=== PATIENT | male | born 1970 | race American Indian/Alaskan Native ===

== ENCOUNTER 2016-04-19 05:48 | Inpatient (IN) | payer MEDICARE ==
--- NOTE | 2016-04-16 12:35 | Anesthesia Consultation ---
Anesthesia Consult and Med Hx Date of service: 04/16/16 (Scheduled for left femoral arterectomy on 04/19/16) - Airway Anesthetic Teeth Evaluation: Good ROM Head & Neck: Adequate Mental/Hyoid Distance: Adequate Mallampati Class: Class III Intubation Access Assessment: Possibly Difficult - Pulmonary Exam CTA: Yes - Cardiac Exam Cardiac Exam: RRR - Pre-Operative Health Status ASA Pre-Surgery Classification: ASA3 Proposed Anesthetic Plan: General - Pre-Anesthesia Comment Pre-Anesthesia Comments: No previous anesthesia complications. Cardiac clearance done today at [facility] and pending. - Pulmonary Hx Smoking: Yes (Quit 2 years ago) Hx Asthma: No Hx Sleep Apnea: Yes (2004; + CPAP) - Cardiovascular System Hx Hypertension: Yes (2004) Hx Coronary Artery Disease: Yes Hx Heart Attack/AMI: Yes (02/26/2016- no stents) Hx Percutaneous Transluminal Coronary Angioplasty (PTCA): No Hx Peripheral Vascular Disease: (2004) - Central Nervous System CVA: Yes (2012- no residual defects) Hx Psychiatric Problems: No - Gastrointestinal Hx Gastroesophageal Reflux Disease: No - Endocrine Hx Renal Disease: No Hx Non-Insulin Dependent Diabetes: Yes (Takes Metformin) Hx Thyroid Disease: No - Hematic Hx Anemia: No - Other Systems Hx Cancer: No Hx Obesity: Yes (BMI= 41.6) - Additional Comments Anesthesia Medical History Comments: Patient is s/p RI 02/26/16 at [facility]. States he did not require intervention and was treated with meds. Currently on dual antiplatelet therapy (ASA,Plavix), statin and BB. He is followed by [facility] and went for cardiac clearance today. Will request records. Pt denies SOB, chest pain or anginal equivalent.
[2016-04-16 13:10] LABS: Basophils % (Auto) 0.4 % (0.0-1.8); Eosinophils % (Auto) 1.3 % (0.0-4.3); Hematocrit 48.8 % (35.5-45.6); Hemoglobin 16.5 gm/dl (11.8-15.2); Mean Corpuscular HGB Conc 34 % (32-34); Mean Corpuscular Volume 77 fl (84-94); Platelet Count 242 K/mm3 (140-440); Red Blood Count 6.37 M/mm3 (3.65-5.03); Red Cell Distribution Width 16.9 % (13.2-15.2); White Blood Count 8.5 K/mm3 (4.5-11.0)
[2016-04-16 13:18] LABS: Mean Corpuscular Hemoglobin 26 pg (28-32)
[2016-04-16 13:21] LABS: INR 1.35 (0.87-1.13)
[2016-04-16 13:25] LABS: Anion Gap 22 mmol/L; Blood Urea Nitrogen 15 mg/dL (9-20); Calcium 9.4 mg/dL (8.4-10.2); Carbon Dioxide 22 mmol/L (22-30); Chloride 96.3 mmol/L (98-107); Glucose 285 mg/dL (75-100); Potassium 4.5 mmol/L (3.6-5.0); Sodium 136 mmol/L (137-145)
--- NOTE | 2016-04-18 17:49 | Admit Criteria Form ---
Admission Criteria Documentation: AMBULATORY SURGERY EXCEPTION CRITERIA Ambulatory Surgery Exception Criteria ( Place 'X' for any and all applicable criteria): Surgery or procedure performed on ambulatory basis may require inpatient stay for[A] ANY ONE of the following(1)(2)(3)(4)(5)(6)(7)(8)(9): [X] I. A preoperative situation, condition, or finding that warrants inpatient stay as indicated by ANY ONE of the following: [] a) Inpatient care needed because of severity of a disease or condition rather than the surgery (eg, severe cardiac or respiratory disease, severe infection) (15) (16 ) (17) (18) [] b) Emergent procedure (eg, angioplasty for acute ischemia)(19) [] c) Complex surgical approach or situation as indicated by ANY ONE of the following(3): [] i) Open approach needed instead of usual endoscopic, transcatheter, or other less invasive procedure [] ii) Difficult approach because of previous operation [] iii) Airway monitoring required after open neck procedures(20)(21) [] iv) Large mass requiring unusually extensive dissection [] v) Additional complicating feature requiring inpatient care (eg, drain management)(22(23): [X] d) Major surgery in a pt with high anesthetic risk as indicated by ANY ONE of the following (2)(3)(5)(7)(8): [X] i) ASA risk class III or higher (severe systemic disease impairing function) [D] [] ii) Advanced age (eg, older than 85 years)(14)(24) [] iii) Symptomatic heart failure(25) [] iv) Symptomatic asthma or COPD(8)(21) [] v) Morbid obesity with hemodynamic or respiratory problems(20)( 21)(26)(27) [] vi) Obstructive sleep apnea(20)(21) [] vii) Former premature infants who are younger than 60 weeks [] viii) High risk for severe postoperative abnormalities (eg, severe postoperative hypocalcemia after parathyroidectomy for severe hyperparathyroidism)(27)( 28) [] ix) Unstable angina(25) [] e) Drug-related risk requiring inpatient stay as indicated by ANY ONE of the following(5)(10)(14)(32)(33) [] i) Procedure requires discontinuing drugs or other therapy (eg , antiarrhythmic medication, antiseizure medication), which necessitates inpatient observation or treatment.(18)(31) [] ii) Major surgery and high risk drug use as indicated by ANY ONE of the following: [] 1) Active abuse of cocaine or similar drug [] 2) Monoamine oxidase inhibitor use [] 3) Other drug identified as posing risk [] f) Inadequate outpatient care situation as indicated by ANY ONE of the following(5)(10)(14)(32)(33) [] i) Patient lives remote from medical facility and procedure has urgent complication potential, and temporary nearby residence cannot be arranged [] ii) Patient will have postprocedure incapacitation and inadequate assistance at home, or alternative level of care cannot be arranged. [] iii) Patient will have long general anesthesia or procedure side effect resolution time, and competent person to stay with patient on first postoperative night at home or alternative level of care cannot be arranged. []iv) Other inadequate outpatient situation that cannot be handled by other means [] II. A perioperative event, condition, or finding that warrants inpatient stay as indicated by ANY ONE of the following (1)(2)(3): [] a) Inadequate physiologic recovery: cardiovascular, respiratory, or hemodynamic status not normal or near preoperative baseline(18) [] b) Hemodynamic instability [] c) Patient not alert with near normal or baseline mental status [] d) Temperature not normal or as expected and not appropriate for outpatient treatment of condition [] e) Ambulatory or appropriate activity level status not yet achieved post procedure [E](34)(35)(36) [] f) Operative site not appropriate (eg, unexpected or excessive drainage or bleeding) [] g) Postoperative effects not resolved or adequately managed (eg, significant pain or vomiting not appropriate for outpatient or next level of care)(10)(12) [] h) Complicating features requiring inpatient care as indicated by ANY ONE of the following(37): [] i) Severe complications of procedure (eg, bowel injury, airway compromise, vascular injury,severe hemorrhage) [] ii) Extensive (eg, dissection far beyond usual scope of procedure ) or prolonged (eg, 120 minutes beyond usual) surgery needed requiring inpatient postoperative care [] iii) Conversion to an open or complex procedure that requires inpatient care (eg, open vs laparoscopic cholecystectomy, abdominal vs vaginal hysterectomy)(38) [] iv) Comorbid condition or test result identified during or post procedure that requires inpatient care (7) [] v) Malignant hyperthermia(30) [] vi) Other complicating feature requiring inpatient care(22)(23) Inpatient stay may be needed until ALL of the following are present (1)(2)(3)(4) (5)(6)(10)(14)(33)(40): []a) Physiologic recovery: cardiovascular, respiratory, and hemodynamic status normal or near preoperative baseline []b) Hemodynamic stability []c) Patient alert, with near normal or baseline mental status []d) Temperature appropriate: patient afebrile or temperature appropriate for outpt treatment of condition []e) Activity level appropriate: ambulatory or appropriate activity level post procedure []f) Operative site appropriate as indicated by ALL of the following: []i) Site dry or with expected drainage []ii) Any blood noted is as expected for procedure. []g) Postoperative effects resolved or managed as indicated by ALL of the following: []i) Pain management appropriate for outpatient (or next level of) care(10) []ii) Minimal nausea and vomiting: if present, successfully treated with oral medication(12) []iii) Headache, dizziness, or drowsiness (if present) are mild. []h) Voiding status acceptable as indicated by ANY ONE of the following: []i) Voiding spontaneously []ii) No voiding but instructions given for follow-up in 6 to 8 hours []iii) Urinary catheter in place, and instructions given for follow-up []i) Complicating features requiring inpatient care manageable at a lower level of care(37) []j) Comorbid conditions manageable at a lower level of care(37) The original [employer] content created by [employer] has been revised. The portions of the content which have been revised are identified through the use of italic text or in bold, and [facility] has neither reviewed nor approved the modified material. All other unmodified content is copyright [employer]. Please see references footnoted in the original [employer] edition 2016 Admission Criteria Met: Yes
[2016-04-19] MEDS ORDERED: ANCEF/STERILE WATER 2 GM/20 ML 2 GM/20 ML SYRINGE IV NR (06:00)
[2016-04-19] MEDS ORDERED: PEPCID PO NR (06:00)
[2016-04-19] MEDS ORDERED: VERSED IV NR (06:00)
[2016-04-19] MEDS ORDERED: NACL BACTERIOSTATIC INFILTRATI ONE (06:24)
[2016-04-19] MEDS ORDERED: DILAUDID ONE ×2 (06:41→10:28)
[2016-04-19] MEDS ORDERED: DIPRIVAN 10 MG/ML IV ONE (06:41)
[2016-04-19] MEDS ORDERED: XYLOCAINE MPF 2% ONE (06:43)
[2016-04-19] MEDS: NACL 0.9% 1000 ML 1,000 ML IV SCH (06:55)
--- NOTE | 2016-04-19 07:00 | Anesthesia Day of Surgery ---
Anesthesia Day of Surgery - Day of Surgery Patient Examined: Yes Patient H&P Reviewed: Yes Patient is NPO: Yes Cardiac Clearance: Yes
[2016-04-19] MEDS ORDERED: QUELICIN ONE (07:17)
[2016-04-19] MEDS ORDERED: ZEMURON IV ONE ×3 (07:17→11:52)
[2016-04-19] MEDS ORDERED: NEOSTIGMINE ONE (07:17)
[2016-04-19] MEDS ORDERED: ROBINUL ONE (07:17)
[2016-04-19] MEDS ORDERED: NEO SYNEPHRINE/NS Syringe(OR USE) IV ONE (08:00)
[2016-04-19] MEDS ORDERED: DECADRON ONE (08:30)
[2016-04-19] MEDS ORDERED: ZOFRAN ONE (08:30)
[2016-04-19] MEDS ORDERED: OMNIPAQUE IV ONE (08:39)
[2016-04-19] MEDS ORDERED: RIFADIN 600 MG in NACL 0.9% 50 ML IR ONE (08:39)
[2016-04-19] MEDS ORDERED: HEPARIN 10,000 UNITS/10 ML 4,000 UNIT in NACL 0.9% 1000 ML 1,000 ML IR ONE (08:39)
[2016-04-19] MEDS ORDERED: NACL 0.9% IV ONE (08:39)
[2016-04-19] MEDS ORDERED: PROAIR IH ONE (08:59)
[2016-04-19] MEDS ORDERED: NACL 0.9% 1000 ML 1,000 ML ONE (09:08)
[2016-04-19] MEDS ORDERED: BREVIBLOC IV ONE (10:55)
[2016-04-19] MEDS ORDERED: MARCAINE 0.5% INFILTRATI ONE (11:45)
[2016-04-19] MEDS ORDERED: ANCEF ONE (11:53)
[2016-04-19] MEDS ORDERED: NACL P/F VIAL (10 ML) 10 ML ONE (11:53)
[2016-04-19] MEDS ORDERED: ANCEF IV ONE (12:08)
[2016-04-19] MEDS ORDERED: NACL 0.9% IR ONE (13:38)
[2016-04-19] MEDS ORDERED: NORMODYNE IV ONE (13:42)
[2016-04-19] MEDS ORDERED: NARCAN 0.4 MG/1 ML IV PRN (13:53)
[2016-04-19] MEDS ORDERED: ZOFRAN IV PRN (13:53)
[2016-04-19] MEDS ORDERED: ASPIRIN PO SCH (14:00)
[2016-04-19] MEDS: DILAUDID IV PRN ×6 (14:05→17:10)
--- NOTE | 2016-04-19 14:19 | Operative Report ---
Operative Report Operative Report: Date of Procedure: 04/19/2016 Pre-operative Diagnosis: PVD with Left Foot Rest Pain Post-operative Diagnosis: Same Procedure(s): 1. Open Left Femoral Artery Thrombectomy 2. Open Right Femoral Thrombectomy 3. Open Right Iliac Thrombectomy with 6 Braxton 4. Right Femoral Artery to Left Profunda Artery Bypass with 8 mm Ringed Propaten Graft Surgeon: Caden Patton M.D. Box Car Loader: Alex Juarez PA-C Anesthesia: Gen. Endotracheal Anesthesia EBL: 750 mL Counts: Correct Complications: None Condition: Stable Findings: The patient's left common femoral artery and external iliac artery were fragile and tore with manipulation. Visualization of the mid external iliac artery demonstrated the artery also had poor tissue integrity. The patient's left iliac and common femoral artery dissection extended into the profunda artery. There was thrombus within the right common femoral artery and external iliac artery. Specimen: Left common femoral artery sent to pathology. Left femoral plaque and thrombus sent to pathology. Indication: The patient is a 45-year-old male with a history of peripheral vascular disease and possible vasculitis requiring bilateral femoral artery to popliteal artery bypass. The bypass is thrombosed and the patient presented to us with short distance claudication. He had a diagnostic arteriogram that demonstrated the occlusion of the superficial femoral arteries and popliteal arteries bilaterally. The diagnostic material did demonstrate the bilateral iliac arteries and the aorta widely patent. He subsequently underwent an percutaneous intervention for coronary spasm and there was presented with complaints of rest pain on the left and worsening claudication on the right. He underwent an arteriogram in the office that demonstrated occlusion of his left common iliac, external iliac, and common femoral arteries. He was scheduled for a left femoral endarterectomy with stenting of the left iliac artery. He was given the risks, benefits, and alternative procedures and consented to procedure. Description of Procedure: The patient was brought into the operating room and laid in supine position. After general endotracheal anesthesia was achieved his left groin and thigh were prepped and draped in normal sterile fashion. A longitudinal incision was created in the groin through his previous incision and carried down to the common femoral artery using sharp dissection. Of note there was significant amount of scar within the wound. Upon dissecting down to the common femoral artery and a manipulating artery, the artery began to tear. Dissection of the distal external iliac artery to try to gain control again this demonstrated a very fragile artery with tissue that tore with any manipulation. I was able to dissect under the inguinal ligament and visual inspection of the midportion artery also divided artery that appeared to have small areas of perforation. At this point abandon the option of stenting the iliac artery. I was able to dissect down to the profunda artery which was a normal artery with adequate tissue integrity. I was unable to ever identify the superficial femoral artery. I transected the common femoral artery and passed this off as a specimen and used Lazaro scissors to open the profunda artery. Upon opening the artery was thrombus within the profunda artery and obvious dissection flap that extended into the profunda. I extended the arteriotomy down to the bifurcation and controlled each branch with a vessel loop. I passed a Braxton down to each branch was able to perform a thrombectomy and at this point there was backbleeding from each branch. I was able to remove the redundant intima which was occluding the medial branch. This point is obvious that I will require a femorofemoral bypass so I packed the left groin and covered it with a sterile towel and broke down the sterile field. We then prepped and draped bilateral groins and abdomen in normal sterile fashion. A longitudinal incision was then created and the right groin and carried down to the common femoral artery using sharp dissection. Again there was significant amount of scarring within the wound. Upon dissecting down to the common femoral artery there was a bit of a waterhammer pulse. I was able to identify what appeared to be a vein graft and the profunda had refractory did not identify a superficial femoral artery. I dissected circumferentially around the artery and controlled the profunda as well as the common femoral with a vessel loop. I then dissected along the abdominal wall, in bilateral incisions, and created a tunnel for the graft that was pulled through the tunnel. At this point I systemically heparinized the patient and then control flow in the right femoral artery. Upon opening the right common femoral artery I encountered a significant amount of thrombus within the artery. This was removed from the common femoral artery as well as thrombus and plaque extending down into the profunda artery. Of note upon opening the common femoral artery to profunda artery had no backbleeding however after removing the thrombus and plaque there was a significant amount of backbleeding. I removed the clamp from the proximal portion of the common femoral artery to check the inflow which was poor. I advanced a 6 Braxton into the iliac artery and performed thrombectomy and retrieved a significant amount of thrombus and at this point there was excellent arterial inflow. I made several passes until there was no further thrombus and there we clamped the artery. I then beveled the graft and created end to side anastomosis using 2 5- 0 Prolene in a running fashion. After freeing anastomosis I clamped the graft just distal to the anastomosis and removed all clamps allow flow into the graft which had excellent hemostasis. I packed the right groin with quick clot and then turned my attention to the left groin. I cut the graft to length and then removed the excess rings and beveled the distal end of the graft. I then created and an anastomosis between the graft and the profunda artery using 2 5- 0 Prolene in a running fashion. Prior to completing the anastomosis I backbled the profunda arteries and flushed the graft. I then completed the anastomosis and remove all clamps allow flow into the profunda artery on the left which had an excellent pulse. Further hemostasis in both wounds was achieved with a combination of quick clot and FloSeal. Once hemostasis had been achieved both wounds were anesthetized with Marcaine and closed in 3 layers using 3-0 Vicryl in running fashion the deep layer, a thrill Vicryl running fashion and the deep dermal layer, and a 4 Monocryl in running fashion subcuticular. Both wounds were then dressed with Dermabond. The patient tolerated the procedure well. All sponge, needle, and estimate counts were correct. The patient was taken to the recovery area in stable condition.
--- NOTE | 2016-04-19 15:03 | Post Anesthesia Evaluation ---
- Post Anesthesia Evaluation Patient Participated: Yes Airway Patent: Yes Stable Respiratory Function: Yes Nausea/Vomiting: No Temp > 96.8F: Yes Pain Manageable: Yes Adequeate Hydration: Yes Anesthesia Complications: No Block Receding Appropriately: Not Applicable Patient on Ventilator: No
[2016-04-19 15:33] LABS: INR 1.11 (0.87-1.13)
[2016-04-19 15:34] LABS: Partial Thromboplastin Time 24.7 Sec. (24.2-36.6)
[2016-04-19] MEDS: MORPHINE IV PRN ×2 (15:37→19:57)
[2016-04-19] MEDS: TRENTAL PO SCH (15:40)
[2016-04-19 16:26] LABS: Hematocrit 46.3 % (35.5-45.6); Hemoglobin 15.1 gm/dl (11.8-15.2); Mean Corpuscular HGB Conc 33 % (32-34); Mean Corpuscular Volume 78 fl (84-94); Platelet Count 295 K/mm3 (140-440); Red Blood Count 5.94 M/mm3 (3.65-5.03); Red Cell Distribution Width 17.1 % (13.2-15.2); White Blood Count 16.8 K/mm3 (4.5-11.0)
[2016-04-19 16:30] LABS: Mean Corpuscular Hemoglobin 25 pg (28-32)
[2016-04-19] MEDS: NORCO 5/325 PO PRN ×2 (16:42→22:56)
[2016-04-19 17:51] LABS: Chloride TNR mmol/L (98-107); Potassium TNR mmol/L (3.6-5.0); Sodium TNR mmol/L (137-145)
[2016-04-19 17:52] LABS: Anion Gap TNR mmol/L; BUN/Creatinine Ratio TNR; Blood Urea Nitrogen TNR mg/dL (9-20); Carbon Dioxide TNR mmol/L (22-30)
[2016-04-19 17:53] LABS: Glucose TNR mg/dL (75-100)
[2016-04-19 17:54] LABS: Calcium TNR mg/dL (8.4-10.2)
[2016-04-19] MEDS ORDERED: VALIUM PO ONE (18:00)
[2016-04-19 18:16] LABS: Anion Gap 24 mmol/L; BUN/Creatinine Ratio 13.63; Blood Urea Nitrogen 15 mg/dL (9-20); Carbon Dioxide 19 mmol/L (22-30); Chloride 97.6 mmol/L (98-107); Glucose 365 mg/dL (75-100); Sodium 136 mmol/L (137-145)
[2016-04-19] MEDS: BENADRYL PO PRN (23:33)
[2016-04-20] MEDS: DILAUDID IV PRN ×5 (01:31→22:01)
[2016-04-20 03:26] LABS: Hematocrit 41.9 % (35.5-45.6); Hemoglobin 14.2 gm/dl (11.8-15.2)
[2016-04-20 03:41] LABS: INR 1.22 (0.87-1.13)
[2016-04-20 03:44] LABS: Anion Gap 21 mmol/L; BUN/Creatinine Ratio 13.33; Blood Urea Nitrogen 12 mg/dL (9-20); Calcium 7.9 mg/dL (8.4-10.2); Carbon Dioxide 23 mmol/L (22-30); Chloride 95.7 mmol/L (98-107); Glucose 320 mg/dL (75-100); Sodium 136 mmol/L (137-145)
[2016-04-20] MEDS: HEPARIN/ 0.45% NACL-25,000 UNIT/500 ML 25,000 UNIT/500 ML BAG IV SCH (04:24)
[2016-04-20 04:51] LABS: Potassium 3.9 mmol/L (3.6-5.0)
[2016-04-20] MEDS: BENADRYL PO PRN (05:08)
[2016-04-20] MEDS: XANAX PO PRN ×2 (07:52→18:38)
[2016-04-20] MEDS: NORCO 5/325 PO PRN ×3 (07:52→20:02)
[2016-04-20] MEDS ORDERED: LOVENOX SUB-Q SCH (08:00)
[2016-04-20] MEDS: GLUCOPHAGE PO SCH ×2 (08:11→16:42)
[2016-04-20] MEDS: COUMADIN PO SCH (09:12)
[2016-04-20] MEDS: IMDUR PO SCH (09:12)
[2016-04-20] MEDS: PLAVIX PO SCH (09:13)
[2016-04-20] MEDS: NEURONTIN PO SCH ×3 (09:13→22:01)
[2016-04-20] MEDS: GLUCOTROL XL PO SCH (09:30)
[2016-04-20] MEDS: TRENTAL PO SCH ×3 (09:30→20:02)
--- NOTE | 2016-04-20 11:20 | Progress Note ---
Assessment and Plan Patient is status post femoral stem right to left bypass postoperative day #1. Plan to start out of bed as tolerated Controlled glucose - so for above 300 Out of bed as tolerated Continue anticoagulation Subjective Date of service: 04/20/16 Principal diagnosis: left foot ischemia Interval history: 45-year-old gentleman came for intervention for PVD with rest pain in the left lower extremity. He underwent left femoral exploration, right left femorofemoral bypass. Now patient has bilateral reflux imaging paresthesias supposedly from back pain issue since patient is obese and was lying flat on the table. He has some burning sensation posterior left calf and bilateral feet that is improving. Right after surgery he was complaining of inability to move bilateral feet and numbness. He has no complaints on incision site pain. He is legs are warm. Incisions clean and dry and intact. No hematomas. Objective - Constitutional Vitals: Vital Signs - 12hr 04/19/16 04/19/16 04/19/16 23:20 23:30 23:40 Temperature Pulse Rate 123 H 124 H 117 H Pulse Rate [ From Monitor] Respiratory 18 19 16 Rate Respiratory Rate [Left Calf ] Blood Pressure 130/86 130/86 130/86 O2 Sat by Pulse 96 97 97 Oximetry 04/19/16 04/20/16 04/20/16 23:50 00:00 00:10 Temperature Pulse Rate 115 H 110 H 117 H Pulse Rate [ From Monitor] Respiratory 15 17 14 Rate Respiratory Rate [Left Calf ] Blood Pressure 140/82 140/82 138/79 O2 Sat by Pulse 97 96 97 Oximetry 04/20/16 04/20/16 04/20/16 00:20 00:30 00:40 Temperature Pulse Rate 108 H 115 H 117 H Pulse Rate [ From Monitor] Respiratory 22 27 H 27 H Rate Respiratory Rate [Left Calf ] Blood Pressure 138/79 138/79 138/79 O2 Sat by Pulse 95 96 96 Oximetry 04/20/16 04/20/16 04/20/16 00:50 01:00 01:10 Temperature Pulse Rate 118 H 121 H 113 H Pulse Rate [ From Monitor] Respiratory 23 26 H 23 Rate Respiratory Rate [Left Calf ] Blood Pressure 138/79 138/79 145/83 O2 Sat by Pulse 97 97 95 Oximetry 04/20/16 04/20/16 04/20/16 01:20 01:30 01:40 Temperature Pulse Rate 129 H 115 H 115 H Pulse Rate [ From Monitor] Respiratory 17 17 20 Rate Respiratory Rate [Left Calf ] Blood Pressure 145/83 145/83 145/83 O2 Sat by Pulse 97 97 95 Oximetry 04/20/16 04/20/16 04/20/16 01:50 02:00 02:10 Temperature Pulse Rate 134 H 111 H 114 H Pulse Rate [ From Monitor] Respiratory 21 20 20 Rate Respiratory Rate [Left Calf ] Blood Pressure 145/83 145/83 135/78 O2 Sat by Pulse 96 96 96 Oximetry 04/20/16 04/20/16 04/20/16 02:20 02:30 02:40 Temperature Pulse Rate 119 H 125 H 111 H Pulse Rate [ From Monitor] Respiratory 19 23 25 H Rate Respiratory Rate [Left Calf ] Blood Pressure 135/78 135/78 135/78 O2 Sat by Pulse 96 97 97 Oximetry 04/20/16 04/20/16 04/20/16 02:50 03:00 03:10 Temperature Pulse Rate 112 H 114 H 127 H Pulse Rate [ From Monitor] Respiratory 16 16 21 Rate Respiratory Rate [Left Calf ] Blood Pressure 135/78 135/78 155/95 O2 Sat by Pulse 96 96 96 Oximetry 04/20/16 04/20/16 04/20/16 03:20 03:30 03:40 Temperature Pulse Rate 121 H 128 H 121 H Pulse Rate [ From Monitor] Respiratory 20 17 23 Rate Respiratory Rate [Left Calf ] Blood Pressure 155/95 155/95 155/95 O2 Sat by Pulse 95 96 94 Oximetry 04/20/16 04/20/16 04/20/16 03:50 04:00 04:10 Temperature Pulse Rate 104 H 112 H 124 H Pulse Rate [ From Monitor] Respiratory 24 21 22 Rate Respiratory Rate [Left Calf ] Blood Pressure 155/95 155/95 157/91 O2 Sat by Pulse 95 96 97 Oximetry 04/20/16 04/20/16 04/20/16 04:20 04:30 04:40 Temperature Pulse Rate 115 H 118 H 128 H Pulse Rate [ From Monitor] Respiratory 23 21 22 Rate Respiratory Rate [Left Calf ] Blood Pressure 157/91 157/91 157/91 O2 Sat by Pulse 95 96 96 Oximetry 04/20/16 04/20/16 04/20/16 04:50 05:00 05:10 Temperature Pulse Rate 107 H 115 H 130 H Pulse Rate [ From Monitor] Respiratory 21 24 17 Rate Respiratory Rate [Left Calf ] Blood Pressure 157/91 157/91 159/87 O2 Sat by Pulse 96 96 97 Oximetry 04/20/16 04/20/16 04/20/16 05:20 05:30 05:40 Temperature Pulse Rate 107 H 118 H 101 H Pulse Rate [ From Monitor] Respiratory 21 21 19 Rate Respiratory Rate [Left Calf ] Blood Pressure 159/87 159/87 159/87 O2 Sat by Pulse 95 96 96 Oximetry 04/20/16 04/20/16 04/20/16 05:50 06:00 06:10 Temperature Pulse Rate 101 H 108 H 107 H Pulse Rate [ From Monitor] Respiratory 21 22 20 Rate Respiratory Rate [Left Calf ] Blood Pressure 159/87 159/87 159/87 O2 Sat by Pulse 96 96 97 Oximetry 04/20/16 04/20/16 04/20/16 06:20 06:30 06:40 Temperature Pulse Rate 106 H 108 H 106 H Pulse Rate [ From Monitor] Respiratory 19 19 20 Rate Respiratory Rate [Left Calf ] Blood Pressure 159/87 159/87 159/87 O2 Sat by Pulse 96 96 95 Oximetry 04/20/16 04/20/16 04/20/16 06:46 06:50 07:00 Temperature Pulse Rate 108 H 107 H Pulse Rate [ From Monitor] Respiratory 22 21 15 Rate Respiratory Rate [Left Calf ] Blood Pressure 159/87 159/87 O2 Sat by Pulse 95 95 Oximetry 04/20/16 04/20/16 04/20/16 07:10 07:20 07:30 Temperature Pulse Rate 124 H 107 H 106 H Pulse Rate [ From Monitor] Respiratory 18 19 19 Rate Respiratory Rate [Left Calf ] Blood Pressure 186/104 186/104 186/104 O2 Sat by Pulse 95 92 93 Oximetry 04/20/16 04/20/16 04/20/16 07:40 07:50 07:51 Temperature 98.0 F Pulse Rate 118 H 111 H Pulse Rate [ From Monitor] Respiratory 23 21 Rate Respiratory Rate [Left Calf ] Blood Pressure 131/82 131/82 O2 Sat by Pulse 93 92 Oximetry 04/20/16 04/20/16 04/20/16 07:52 08:00 08:10 Temperature Pulse Rate 108 H 124 H Pulse Rate [ 111 H From Monitor] Respiratory 22 22 17 Rate Respiratory 22 Rate [Left Calf ] Blood Pressure 149/93 131/82 O2 Sat by Pulse 95 93 Oximetry 04/20/16 04/20/16 04/20/16 08:20 08:30 08:40 Temperature Pulse Rate 124 H 119 H 123 H Pulse Rate [ From Monitor] Respiratory 14 19 18 Rate Respiratory Rate [Left Calf ] Blood Pressure 131/82 131/82 149/93 O2 Sat by Pulse 95 92 89 Oximetry 04/20/16 04/20/16 04/20/16 08:50 08:52 09:00 Temperature Pulse Rate 122 H 122 H Pulse Rate [ From Monitor] Respiratory 19 20 18 Rate Respiratory Rate [Left Calf ] Blood Pressure 149/93 149/93 O2 Sat by Pulse 88 87 Oximetry 04/20/16 04/20/16 04/20/16 09:10 09:12 11:02 Temperature Pulse Rate 118 H 125 H Pulse Rate [ From Monitor] Respiratory 19 Rate Respiratory Rate [Left Calf ] Blood Pressure 115/79 115/70 O2 Sat by Pulse 96 95 Oximetry - Labs CBC & Chem 7: 04/20/16 03:08 04/20/16 03:08 Labs: Abnormal lab results 04/19/16 04/19/16 04/19/16 Range/Units 14:01 15:02 15:10 WBC (4.5-11.0) K/mm3 RBC (3.65-5.03) M/mm3 Hct (35.5-45.6) % MCV (84-94) fl MCH (28-32) pg RDW (13.2-15.2) % PT (12.2-14.9) Sec. INR (0.87-1.13) Heparin Anti-Xa Level 0.11 L (0.3-0.7) U.I./ml Sodium (137-145) mmol/L Chloride (98-107) mmol/L Carbon Dioxide (22-30) mmol/L Glucose (75-100) mg/dL POC Glucose 388 H 415 H (70-105) Calcium (8.4-10.2) mg/dL 04/19/16 04/19/16 04/19/16 Range/Units 15:10 17:55 22:55 WBC 16.8 H (4.5-11.0) K/mm3 RBC 5.94 H (3.65-5.03) M/mm3 Hct 46.3 H (35.5-45.6) % MCV 78 L (84-94) fl MCH 25 L (28-32) pg RDW 17.1 H (13.2-15.2) % PT (12.2-14.9) Sec. INR (0.87-1.13) Heparin Anti-Xa Level (0.3-0.7) U.I./ml Sodium 136 L (137-145) mmol/L Chloride 97.6 L (98-107) mmol/L Carbon Dioxide 19 L (22-30) mmol/L Glucose 365 H (75-100) mg/dL POC Glucose 255 H (70-105) Calcium 8.0 L (8.4-10.2) mg/dL 04/20/16 04/20/16 04/20/16 Range/Units 03:08 03:08 03:08 WBC (4.5-11.0) K/mm3 RBC (3.65-5.03) M/mm3 Hct (35.5-45.6) % MCV (84-94) fl MCH (28-32) pg RDW (13.2-15.2) % PT 15.3 H (12.2-14.9) Sec. INR 1.22 H (0.87-1.13) Heparin Anti-Xa Level 1.18 H (0.3-0.7) U.I./ml Sodium 136 L (137-145) mmol/L Chloride 95.7 L (98-107) mmol/L Carbon Dioxide (22-30) mmol/L Glucose 320 H (75-100) mg/dL POC Glucose (70-105) Calcium 7.9 L (8.4-10.2) mg/dL
[2016-04-20] MEDS: NOVOLOG SUB-Q SCH ×3 (12:22→22:02)
--- NOTE | 2016-04-20 13:41 | Consultation ---
History of Present Illness Consult date: 04/20/16 Requesting physician: SUJATHA SORIANO History of present illness: PULMONARY/CCM CONSULT NOTE (Full dictation # [id number]) Please see dictated notes for full details Medications and Allergies Allergies Allergy/AdvReac Type Severity Reaction Status Date / Time No Known Allergies Allergy Unverified 04/15/16 11:45 Home Medications Medication Instructions Recorded Confirmed Last Taken Type ALPRAZolam [Xanax TAB] 0.25 mg PO TID PRN 04/15/16 04/19/16 04/14/16 21:00 History Aspirin [Aspirin TAB] 325 mg PO ONCE 04/15/16 04/19/16 04/17/16 09:00 History AtorvaSTATin [Lipitor] 80 mg PO QDAY 04/15/16 04/19/16 04/18/16 09:00 History Clopidogrel Bisulfate [Plavix] 75 mg PO QDAY 04/15/16 04/19/16 04/18/16 09:00 History ISOSORBIDE MONOnitrate [Imdur ER] 60 mg PO QDAY 04/15/16 04/19/16 04/18/16 09: 00 History Metformin HCl [Glucophage] 1,000 mg PO BID 04/15/16 04/19/16 04/17/16 09:00 History Pentoxifylline [TRENtal] 400 mg PO TID 04/15/16 04/19/16 04/18/16 21:00 History Warfarin [Coumadin] 10 mg PO QDAY 04/15/16 04/19/16 04/14/16 09:00 History glipiZIDE [glipiZIDE ER] 5 mg PO QAM 04/15/16 04/19/16 04/15/16 09:00 History Active Meds: Active Medications Acetaminophen/Hydrocodone Bitart ([place] 5/325) 2 each PO Q6H PRN PRN Reason: Pain, Moderate (4-6) Last Admin: 04/20/16 07:52 Dose: 2 each Alprazolam (Xanax) 0.25 mg PO TID PRN PRN Reason: Anxiety Last Admin: 04/20/16 07:52 Dose: 0.25 mg Aspirin (Aspirin) 325 mg PO ONCE MICHAEL Last Admin: 04/19/16 15:40 Dose: 325 mg Atorvastatin Calcium (Lipitor) 80 mg PO QDAY MICHAEL Last Admin: 04/20/16 09:13 Dose: 80 mg Clopidogrel Bisulfate (Plavix) 75 mg PO QDAY [facility] Last Admin: 04/20/16 09:13 Dose: 75 mg Diphenhydramine HCl (Benadryl) 50 mg PO Q6H PRN PRN Reason: Itching Last Admin: 04/20/16 05:08 Dose: 50 mg Gabapentin (Neurontin) 300 mg PO Q8HR [facility] Last Admin: 04/20/16 09:13 Dose: 300 mg Glipizide (Glucotrol Xl) 5 mg PO QAM [facility] Last Admin: 04/20/16 09:30 Dose: 5 mg Hydromorphone HCl (Dilaudid) 1 mg IV Q4H PRN PRN Reason: Pain Last Admin: 04/20/16 10:48 Dose: 1 mg Sodium Chloride (Nacl 0.9% 1000 Ml) 1,000 mls @ 42 mls/hr IV DIRECT [facility] Last Admin: 04/19/16 06:55 Dose: 42 mls/hr Heparin Sodium/Sodium Chloride (Heparin/ 0.45% Nacl-25,000 Unit/500 Ml) 25,000 unit in 500 mls @ 30 mls/hr IV TITR MICHAEL; 1,500 UNITS/HR PRN Reason: Protocol Last Titration: 04/20/16 07:30 Dose: 1,200 units/hr, 24 mls/hr Insulin Aspart (Novolog) 0 units SUB-Q ACHS MICHAEL PRN Reason: Protocol Last Admin: 04/20/16 12:22 Dose: 6 units Isosorbide Mononitrate (Imdur) 60 mg PO QDAY [facility] Last Admin: 04/20/16 09:12 Dose: 60 mg Metformin HCl (Glucophage) 1,000 mg PO BIDDIAB [facility] Last Admin: 04/20/16 08:11 Dose: Not Given Morphine Sulfate (Morphine) 2 mg IV Q4H PRN PRN Reason: Pain, Moderate (4-6) Last Admin: 04/19/16 15:37 Dose: 2 mg Morphine Sulfate (Morphine) 4 mg IV Q4H PRN PRN Reason: Pain , Severe (7-10) Last Admin: 04/19/16 19:57 Dose: 4 mg Naloxone HCl (Narcan 0.4 Mg/1 Ml) 0.1 mg IV Q2MIN PRN PRN Reason: Res Rate </= 8 or 02 SAT < 92% Ondansetron HCl (Zofran) 4 mg IV Q8H PRN PRN Reason: Nausea And Vomiting Pentoxifylline (Trental) 400 mg PO TID [facility] Last Admin: 04/20/16 09:30 Dose: 400 mg Warfarin Sodium (Coumadin) 10 mg PO QDAY [facility] PRN Reason: Protocol Last Admin: 04/20/16 09:12 Dose: 10 mg Physical Examination Vital signs: Vital Signs Temp Pulse Resp BP 97.7 F 88 18 140/84 04/16/16 12:10 04/16/16 12:10 04/16/16 12:10 04/16/16 12:10 Results - Laboratory Findings CBC and BMP: 04/21/16 04:49 04/20/16 03:08 PT/INR, D-dimer PT 15.3 Sec. (12.2-14.9) H 04/20/16 03:08 INR 1.22 (0.87-1.13) H 04/20/16 03:08 Abnormal lab findings: Abnormal Labs 04/16/16 04/16/16 04/16/16 12:30 12:30 12:30 WBC RBC 6.37 H Hgb 16.5 H Hct 48.8 H MCV 77 L MCH 26 L RDW 16.9 H [place] % (Auto) 8.4 H PT 16.6 H INR 1.35 H Heparin Anti-Xa Level Sodium 136 L Chloride 96.3 L Carbon Dioxide Glucose 285 H POC Glucose Calcium 04/19/16 04/19/16 04/19/16 07:03 14:01 15:02 WBC RBC Hgb Hct MCV MCH RDW [place] % (Auto) PT INR Heparin Anti-Xa Level Sodium Chloride Carbon Dioxide Glucose POC Glucose 213 H 388 H 415 H Calcium 04/19/16 04/19/16 04/19/16 15:10 15:10 17:55 WBC 16.8 H RBC 5.94 H Hgb Hct 46.3 H MCV 78 L MCH 25 L RDW 17.1 H [place] % (Auto) PT INR Heparin Anti-Xa Level 0.11 L Sodium 136 L Chloride 97.6 L Carbon Dioxide 19 L Glucose 365 H POC Glucose Calcium 8.0 L 04/19/16 04/20/16 04/20/16 22:55 03:08 03:08 WBC RBC Hgb Hct MCV MCH RDW [place] % (Auto) PT 15.3 H INR 1.22 H Heparin Anti-Xa Level Sodium 136 L Chloride 95.7 L Carbon Dioxide Glucose 320 H POC Glucose 255 H Calcium 7.9 L 04/20/16 04/20/16 03:08 11:51 WBC RBC Hgb Hct MCV MCH RDW [place] % (Auto) PT INR Heparin Anti-Xa Level 1.18 H Sodium Chloride Carbon Dioxide Glucose POC Glucose 277 H Calcium
[2016-04-21] MEDS: DILAUDID IV PRN ×3 (04:37→17:33)
[2016-04-21] MEDS: HEPARIN/ 0.45% NACL-25,000 UNIT/500 ML 25,000 UNIT/500 ML BAG IV SCH (04:40)
[2016-04-21 05:13] LABS: Hematocrit 41.3 % (35.5-45.6); Hemoglobin 13.4 gm/dl (11.8-15.2)
[2016-04-21] MEDS: NEURONTIN PO SCH ×3 (06:47→22:14)
[2016-04-21] MEDS: TRENTAL PO SCH ×4 (08:00→20:19)
[2016-04-21] MEDS: NOVOLOG SUB-Q SCH ×4 (09:00→22:17)
[2016-04-21] MEDS: GLUCOPHAGE PO SCH ×2 (09:00→17:31)
[2016-04-21] MEDS: GLUCOTROL XL PO SCH (10:05)
[2016-04-21] MEDS: PLAVIX PO SCH (10:06)
[2016-04-21] MEDS: IMDUR PO SCH (10:06)
[2016-04-21] MEDS: COUMADIN PO SCH ×2 (12:45→17:32)
[2016-04-21] MEDS: XANAX PO PRN ×2 (12:53→22:23)
--- NOTE | 2016-04-21 13:52 | Progress Note ---
Assessment and Plan (1) Atherosclerosis of [place] arteries of extremity with rest pain Current Visit: Yes Status: Acute Qualifiers: Peripheral atherosclerosis location: P Laterality: L Plan to address problem: - revascularization per vascular team - anticoagulation - analgesia - PT/OT (2) Morbid obesity due to excess calories Current Visit: Yes Status: Acute Plan to address problem: - outpatient PSG recommended - supplemental oxygen prn while asleep - weight loss (3) Paresthesia of bilateral legs Current Visit: Yes Status: Acute Plan to address problem: - ? peripheral vascular disease related - no loss of movement and no posterior vertebral point tenderness (4) Uncontrolled diabetes mellitus Current Visit: Yes Status: Chronic Qualifiers: Diabetes mellitus type: type 2 Diabetes mellitus complication status: with circulatory complication Diabetes mellitus complication detail: with other circulatory complications Diabetic retinopathy severity: D Diabetes mellitus macular edema: D Diabetes mellitus jail insulin use: without jail use Chronic kidney disease stage: C Qualified Code(s): E11.59 - Type 2 diabetes mellitus with other circulatory complications; E11.65 - Type 2 diabetes mellitus with hyperglycemia Plan to address problem: - continue SSI Subjective Date of service: 04/21/16 Principal diagnosis: left foot ischemia Interval history: Seen and examined at bedside; 24 hour events reviewed; nursing and respiratory care staff consulted; no adverse overnight events reported to me; resting in bed ; denies acute chest pains or increased SOB; still with some limb pain but much better Objective Vital Signs - 12hr 04/21/16 04/21/16 04/21/16 01:00 01:10 01:20 Temperature Pulse Rate 131 H 121 H 113 H Respiratory 21 21 26 H Rate Blood Pressure 117/72 128/84 128/84 O2 Sat by Pulse 94 93 96 Oximetry 04/21/16 04/21/16 04/21/16 01:30 01:40 01:50 Temperature Pulse Rate 120 H 120 H 108 H Respiratory 20 23 13 Rate Blood Pressure 128/84 128/84 128/84 O2 Sat by Pulse 96 95 99 Oximetry 04/21/16 04/21/16 04/21/16 03:00 03:10 03:20 Temperature Pulse Rate 114 H 118 H 121 H Respiratory 20 24 21 Rate Blood Pressure 128/84 125/83 125/83 O2 Sat by Pulse 96 95 93 Oximetry 04/21/16 04/21/16 04/21/16 03:30 03:40 03:50 Temperature Pulse Rate 118 H 113 H 107 H Respiratory 18 27 H 13 Rate Blood Pressure 128/84 128/84 128/84 O2 Sat by Pulse 96 95 99 Oximetry 04/21/16 04/21/16 04/21/16 04:00 04:10 04:20 Temperature Pulse Rate 117 H 120 H 114 H Respiratory 21 16 24 Rate Blood Pressure 125/83 123/87 123/87 O2 Sat by Pulse 96 96 95 Oximetry 04/21/16 04/21/16 04/21/16 04:30 04:40 04:50 Temperature Pulse Rate 115 H 120 H 117 H Respiratory 17 19 20 Rate Blood Pressure 123/87 123/87 123/87 O2 Sat by Pulse 96 94 94 Oximetry 04/21/16 04/21/16 04/21/16 05:00 05:10 05:20 Temperature 98.3 F Pulse Rate 121 H 119 H 118 H Respiratory 17 18 18 Rate Blood Pressure 123/87 125/70 125/70 O2 Sat by Pulse 95 94 95 Oximetry 04/21/16 04/21/16 04/21/16 05:30 05:40 05:50 Temperature Pulse Rate 114 H 113 H 115 H Respiratory 19 19 19 Rate Blood Pressure 125/70 125/70 125/70 O2 Sat by Pulse 95 94 95 Oximetry 04/21/16 04/21/16 04/21/16 06:00 06:10 06:20 Temperature Pulse Rate 117 H 108 H 115 H Respiratory 18 17 18 Rate Blood Pressure 125/70 119/80 119/80 O2 Sat by Pulse 94 95 95 Oximetry 04/21/16 04/21/16 04/21/16 06:30 06:40 06:50 Temperature Pulse Rate 115 H 122 H 114 H Respiratory 21 19 19 Rate Blood Pressure 119/80 119/80 119/80 O2 Sat by Pulse 95 96 97 Oximetry 04/21/16 04/21/16 04/21/16 07:00 07:10 07:20 Temperature Pulse Rate 110 H 118 H Respiratory 21 21 Rate Blood Pressure 119/80 121/88 121/88 O2 Sat by Pulse 97 95 96 Oximetry 04/21/16 04/21/16 04/21/16 07:30 07:40 07:50 Temperature Pulse Rate Respiratory Rate Blood Pressure 121/88 121/88 121/88 O2 Sat by Pulse 93 93 93 Oximetry 04/21/16 04/21/16 04/21/16 08:00 08:10 08:20 Temperature 97.8 F Pulse Rate Respiratory Rate Blood Pressure 121/88 121/88 121/88 O2 Sat by Pulse 94 95 97 Oximetry 04/21/16 04/21/16 04/21/16 08:22 08:30 08:40 Temperature Pulse Rate Respiratory Rate Blood Pressure 121/88 121/88 O2 Sat by Pulse 96 93 91 Oximetry 04/21/16 04/21/16 04/21/16 08:50 09:00 09:10 Temperature Pulse Rate Respiratory Rate Blood Pressure 121/88 121/88 126/81 O2 Sat by Pulse 94 93 96 Oximetry 04/21/16 04/21/16 04/21/16 09:20 09:30 09:40 Temperature Pulse Rate 118 H 116 H 120 H Respiratory 24 20 21 Rate Blood Pressure 126/81 123/77 123/77 O2 Sat by Pulse 96 95 97 Oximetry 04/21/16 04/21/16 04/21/16 09:50 10:00 10:05 Temperature Pulse Rate 112 H 119 H Respiratory 21 24 24 Rate Blood Pressure 123/77 116/83 O2 Sat by Pulse 97 96 Oximetry 04/21/16 04/21/16 04/21/16 10:06 10:16 10:30 Temperature Pulse Rate 112 H 112 H 112 H Respiratory 26 H 19 Rate Blood Pressure 123/77 116/83 116/83 O2 Sat by Pulse 96 95 Oximetry 04/21/16 04/21/16 04/21/16 10:46 11:00 11:16 Temperature Pulse Rate 112 H 97 H 108 H Respiratory 21 16 19 Rate Blood Pressure 116/83 119/86 119/86 O2 Sat by Pulse 95 96 96 Oximetry 04/21/16 04/21/16 04/21/16 11:30 11:46 12:00 Temperature 97.6 F Pulse Rate 122 H 115 H 110 H Respiratory 16 18 16 Rate Blood Pressure 119/86 119/86 119/85 O2 Sat by Pulse 96 96 96 Oximetry 04/21/16 12:16 Temperature Pulse Rate 127 H Respiratory 27 H Rate Blood Pressure 119/85 O2 Sat by Pulse 96 Oximetry Constitutional: alert, appears uncomfortable Eyes: non-icteric ENT: oropharynx moist Neck: supple, no lymphadenopathy Effort: normal Ascultation: Bilateral: clear, diminished breath sounds Cardiovascular: regular rate and rhythm Gastrointestinal: normoactive bowel sounds, soft, non-tender, non-distended Integumentary: other (PVD cghanges with sparse haior and pigmentation) Extremities: no cyanosis, edema (trace) Neurologic: normal mental status, non-focal exam, pupils equal and round, motor strength normal and Psychiatric: mood appropriate, affect normal CBC and BMP: 04/25/16 04:30 04/20/16 03:08 ABG, PT/INR, D-dimer: PT/INR, D-dimer PT 15.3 Sec. (12.2-14.9) H 04/20/16 03:08 INR 1.22 (0.87-1.13) H 04/20/16 03:08 Abnormal lab findings: Abnormal Labs 04/16/16 04/16/16 04/16/16 12:30 12:30 12:30 WBC RBC 6.37 H Hgb 16.5 H Hct 48.8 H MCV 77 L MCH 26 L RDW 16.9 H [place] % (Auto) 8.4 H PT 16.6 H INR 1.35 H Heparin Anti-Xa Level Sodium 136 L Chloride 96.3 L Carbon Dioxide Glucose 285 H POC Glucose Calcium 04/19/16 04/19/16 04/19/16 07:03 14:01 15:02 WBC RBC Hgb Hct MCV MCH RDW [place] % (Auto) PT INR Heparin Anti-Xa Level Sodium Chloride Carbon Dioxide Glucose POC Glucose 213 H 388 H 415 H Calcium 04/19/16 04/19/16 04/19/16 15:10 15:10 16:55 WBC 16.8 H RBC 5.94 H Hgb Hct 46.3 H MCV 78 L MCH 25 L RDW 17.1 H [place] % (Auto) PT INR Heparin Anti-Xa Level 0.11 L Sodium Chloride Carbon Dioxide Glucose POC Glucose 310 H Calcium 04/19/16 04/19/16 04/20/16 17:55 22:55 03:08 WBC RBC Hgb Hct MCV MCH RDW [place] % (Auto) PT INR Heparin Anti-Xa Level Sodium 136 L 136 L Chloride 97.6 L 95.7 L Carbon Dioxide 19 L Glucose 365 H 320 H POC Glucose 255 H Calcium 8.0 L 7.9 L 04/20/16 04/20/16 04/20/16 03:08 03:08 11:51 WBC RBC Hgb Hct MCV MCH RDW [place] % (Auto) PT 15.3 H INR 1.22 H Heparin Anti-Xa Level 1.18 H Sodium Chloride Carbon Dioxide Glucose POC Glucose 277 H Calcium 04/20/16 04/20/16 04/20/16 13:10 15:27 21:55 WBC RBC Hgb Hct MCV MCH RDW [place] % (Auto) PT INR Heparin Anti-Xa Level 0.89 H Sodium Chloride Carbon Dioxide Glucose POC Glucose 282 H 243 H Calcium 04/21/16 04/21/16 06:37 12:18 WBC RBC Hgb Hct MCV MCH RDW [place] % (Auto) PT INR Heparin Anti-Xa Level Sodium Chloride Carbon Dioxide Glucose POC Glucose 216 H 200 H Calcium
--- NOTE | 2016-04-21 14:12 | Progress Note ---
Assessment and Plan Status post femorofemoral bypass postop day #2 Bilateral foot monitor back to normal, continue out of bed with assistance Glucose control improving Continue to coagulation. Subjective Date of service: 04/21/16 Principal diagnosis: left foot ischemia Interval history: 45-year-old gentleman came for intervention for PVD with rest pain in the left lower extremity. He underwent left femoral exploration, right left femorofemoral bypass. POD 2 Patient was out of bed yesterday and today. Feeling better, sensation in both legs returning. Objective - Constitutional Vitals: Vital Signs - 12hr 04/21/16 04/21/16 04/21/16 01:10 01:20 01:30 Temperature Pulse Rate 121 H 113 H 120 H Respiratory 21 26 H 20 Rate Blood Pressure 128/84 128/84 128/84 O2 Sat by Pulse 93 96 96 Oximetry 04/21/16 04/21/16 04/21/16 01:40 01:50 03:00 Temperature Pulse Rate 120 H 108 H 114 H Respiratory 23 13 20 Rate Blood Pressure 128/84 128/84 128/84 O2 Sat by Pulse 95 99 96 Oximetry 04/21/16 04/21/16 04/21/16 03:10 03:20 03:30 Temperature Pulse Rate 118 H 121 H 118 H Respiratory 24 21 18 Rate Blood Pressure 125/83 125/83 128/84 O2 Sat by Pulse 95 93 96 Oximetry 04/21/16 04/21/16 04/21/16 03:40 03:50 04:00 Temperature Pulse Rate 113 H 107 H 117 H Respiratory 27 H 13 21 Rate Blood Pressure 128/84 128/84 125/83 O2 Sat by Pulse 95 99 96 Oximetry 04/21/16 04/21/16 04/21/16 04:10 04:20 04:30 Temperature Pulse Rate 120 H 114 H 115 H Respiratory 16 24 17 Rate Blood Pressure 123/87 123/87 123/87 O2 Sat by Pulse 96 95 96 Oximetry 04/21/16 04/21/16 04/21/16 04:40 04:50 05:00 Temperature 98.3 F Pulse Rate 120 H 117 H 121 H Respiratory 19 20 17 Rate Blood Pressure 123/87 123/87 123/87 O2 Sat by Pulse 94 94 95 Oximetry 04/21/16 04/21/16 04/21/16 05:10 05:20 05:30 Temperature Pulse Rate 119 H 118 H 114 H Respiratory 18 18 19 Rate Blood Pressure 125/70 125/70 125/70 O2 Sat by Pulse 94 95 95 Oximetry 04/21/16 04/21/16 04/21/16 05:40 05:50 06:00 Temperature Pulse Rate 113 H 115 H 117 H Respiratory 19 19 18 Rate Blood Pressure 125/70 125/70 125/70 O2 Sat by Pulse 94 95 94 Oximetry 04/21/16 04/21/16 04/21/16 06:10 06:20 06:30 Temperature Pulse Rate 108 H 115 H 115 H Respiratory 17 18 21 Rate Blood Pressure 119/80 119/80 119/80 O2 Sat by Pulse 95 95 95 Oximetry 04/21/16 04/21/16 04/21/16 06:40 06:50 07:00 Temperature Pulse Rate 122 H 114 H 110 H Respiratory 19 19 21 Rate Blood Pressure 119/80 119/80 119/80 O2 Sat by Pulse 96 97 97 Oximetry 04/21/16 04/21/16 04/21/16 07:10 07:20 07:30 Temperature Pulse Rate 118 H Respiratory 21 Rate Blood Pressure 121/88 121/88 121/88 O2 Sat by Pulse 95 96 93 Oximetry 04/21/16 04/21/16 04/21/16 07:40 07:50 08:00 Temperature 97.8 F Pulse Rate Respiratory Rate Blood Pressure 121/88 121/88 121/88 O2 Sat by Pulse 93 93 94 Oximetry 04/21/16 04/21/16 04/21/16 08:10 08:20 08:22 Temperature Pulse Rate Respiratory Rate Blood Pressure 121/88 121/88 O2 Sat by Pulse 95 97 96 Oximetry 04/21/16 04/21/16 04/21/16 08:30 08:40 08:50 Temperature Pulse Rate Respiratory Rate Blood Pressure 121/88 121/88 121/88 O2 Sat by Pulse 93 91 94 Oximetry 04/21/16 04/21/16 04/21/16 09:00 09:10 09:20 Temperature Pulse Rate 118 H Respiratory 24 Rate Blood Pressure 121/88 126/81 126/81 O2 Sat by Pulse 93 96 96 Oximetry 04/21/16 04/21/16 04/21/16 09:30 09:40 09:50 Temperature Pulse Rate 116 H 120 H 112 H Respiratory 20 21 21 Rate Blood Pressure 123/77 123/77 123/77 O2 Sat by Pulse 95 97 97 Oximetry 04/21/16 04/21/16 04/21/16 10:00 10:05 10:06 Temperature Pulse Rate 119 H 112 H Respiratory 24 24 Rate Blood Pressure 116/83 123/77 O2 Sat by Pulse 96 Oximetry 04/21/16 04/21/16 04/21/16 10:16 10:30 10:46 Temperature Pulse Rate 112 H 112 H 112 H Respiratory 26 H 19 21 Rate Blood Pressure 116/83 116/83 116/83 O2 Sat by Pulse 96 95 95 Oximetry 04/21/16 04/21/16 04/21/16 11:00 11:16 11:30 Temperature Pulse Rate 97 H 108 H 122 H Respiratory 16 19 16 Rate Blood Pressure 119/86 119/86 119/86 O2 Sat by Pulse 96 96 96 Oximetry 04/21/16 04/21/16 04/21/16 11:46 12:00 12:16 Temperature 97.6 F Pulse Rate 115 H 110 H 127 H Respiratory 18 16 27 H Rate Blood Pressure 119/86 119/85 119/85 O2 Sat by Pulse 96 96 96 Oximetry - Labs CBC & Chem 7: 04/21/16 04:49 04/20/16 03:08 Labs: Abnormal lab results 04/19/16 04/20/16 04/20/16 Range/Units 16:55 13:10 15:27 Heparin Anti-Xa Level 0.89 H (0.3-0.7) U.I./ml POC Glucose 310 H 282 H (70-105) 04/20/16 04/21/16 04/21/16 Range/Units 21:55 06:37 12:18 Heparin Anti-Xa Level (0.3-0.7) U.I./ml POC Glucose 243 H 216 H 200 H (70-105)
[2016-04-21 15:40] LABS: Creatine Kinase MB 13.4 ng/mL (0.0-4.0)
[2016-04-21 15:55] LABS: Creatine Kinase 8731 units/L (55-170)
[2016-04-21 17:10] LABS: ISTAT Base Excess -2; ISTAT HCO3 21.9; ISTAT PCO2 31.8 (35-45); ISTAT PH 7.447 (7.35-7.45); ISTAT PO2 79 (80-105); ISTAT SO2 96; ISTAT TCO2 23
[2016-04-21] MEDS: NORCO 5/325 PO PRN (19:40)
[2016-04-21] MEDS: NACL 0.9% 1000 ML 1,000 ML IV SCH (19:41)
[2016-04-21] MEDS ORDERED: NON-FORMULARY (Metformin Hcl [Glucophage] 1,000 MG) PO SCH (22:00)
[2016-04-21] MEDS: LOPRESSOR PO SCH (22:15)
--- NOTE | 2016-04-21 22:57 | Consultation ---
CHIEF COMPLAINT AND HISTORY OF PRESENT ILLNESS: The patient is a 45-year-old -[place] male with past medical history significant in this context for a diagnosis of clinical peripheral vascular disease. He states he first had any bypass grafting done in 2004. They have been watching his left lower extremity. He has had increasing dyspnea on exertion and intermittent claudication and ultimately a decision was made for semi-elective procedure. He ended up undergoing open left femoral artery thrombectomy, open right femoral thrombectomy, open right iliac thrombectomy with a 6 Braxton catheter and right femoral artery to left profunda artery bypass with 8 mm ringed Propaten graft. Postprocedure, he was brought into the critical care unit and we were asked to assist with management. When I stopped by to see him, he was resting peacefully in bed, still complaining of lower extremity pain. Overall, better than when he came in. Denies any gross bleeding. No nausea, vomiting. No overt aspiration. No chest pain. His complained of intermittent palpitations whenever he tried to do any significant movement she says his pulse went as high as 160s. At the time of my evaluation, it was in the low 100s, 118 actually. Again, denies any chest pain. He does have a 10+ pack year remote smoking history, but quit smoking about 2 years ago. That really is as much of the history of presentation. PAST MEDICAL HISTORY: Peripheral vascular disease. He is obese. There is a history of diabetes and history of hypertension, history of hyperlipidemia, history of cerebrovascular accident in 2011, and a history of anxiety disorder. PAST SURGICAL HISTORY: Fem-pop bypass in 2004, right and left; fem-pop bypass redo in 2004 on the right. He has had neck surgery, C4-C6 in 2001. MEDICATIONS: He was on at the time I stopped by to see him, according to the medication administration record: He was on [place] 5/325 two tablets p.o. q. 6 hours p.r.n., Xanax 0.25 mg p.o. t.i.d. p.r.n. anxiety, aspirin 325 mg p.o. one time dose, Lipitor 80 mg p.o. daily, Plavix 75 mg p.o. daily, Benadryl 50 mg p.o. q. 6 hours p.r.n. itching, Neurontin 300 mg p.o. q. 8 hours, glipizide 5 mg p.o. q.a.m. He was on a heparin drip at 1500 units per hour, to be titrated per protocol. Dilaudid 1 mg IV q. 4 hours p.r.n. severe pain, insulin via sliding scale, Imdur 60 mg p.o. daily, metformin 1 gram p.o. b.i.d., morphine sulfate 2 mg IV q. 4 hours p.r.n. moderate pain, Narcan p.r.n., Zofran 4 mg IV q. 8 hours p.r.n. nausea and vomiting, Trental 400 mg p.o. t.i.d., and Coumadin 10 mg p.o. daily. ALLERGIES: No known drug allergies. DIET: Obese gentleman. Denies significant weight loss or gain in the preceding few weeks to months. FAMILY AND SOCIAL HISTORY: Lives in the community. He is . Denies current tobacco, alcohol, or illicit drug use or abuse. He does have a 10+ pack year tobacco smoking history. REVIEW OF SYSTEMS: No loss of consciousness. No new onset seizures. No new onset focal weakness. Denies gross hematochezia or melena. No gross hematuria or dysuria. No hematemesis. No hemoptysis. No palpitations. Complete review of systems obtained. Pertinent positives and/or negatives as in body of history above, otherwise noncontributory. PHYSICAL EXAMINATION: VITAL SIGNS: At presentation, he was afebrile, temperature 97.7, pulse was 88, respiratory rate was 18, blood pressure 140/84, oxygen sats 96%, inspired oxygen concentration was not recorded. HEAD, EYES, EARS, NOSE, AND THROAT: Pupils equal, round, about 4 mm, reactive to light. Extraocular muscle movements are intact. Grossly, no palpable lymph nodes in the supraclavicular or submandibular lymph node chains. LUNGS: Auscultation of both lung benedict unremarkable. Lungs are clear bilaterally. HEART: Heart sounds 1 and 2 are heard, regular rate and rhythm, at the time of my evaluation, there was irregular tachycardia. ABDOMEN: Soft. Bowel sounds are positive. Nontender. EXTREMITIES: Without overt digital clubbing or cyanosis. He has significant loss of hair to the right lower extremity from the recio downwards, some significant skin pigmentation in both lower extremities recio downwards. The scars from the prior fem-pop bypass is visible and trace edema on the left lower extremity. NEUROLOGIC: The exam is grossly nonfocal. LABORATORY DATA: From my review are as follows: Admission white cell count 8500 with a hemoglobin of 16.5, hematocrit of 48.8, platelets 242. INR 1.35. Serum sodium was 136, potassium 4.5, chloride 96, bicarbonate 22, BUN 15, creatinine 1.0. Glucose 185. INR today 1.22. Again, he remains on a heparin drip. Do not have any radiographic studies report for review. ASSESSMENT AND PLAN: We have a middle-aged gentleman in status post semi-elective vascular intervention for lower extremity intermittent claudication. Respiratory kang, he is doing pretty decently, not on any supplemental oxygen. At this point, it is unclear if he has any baseline evidence of CO2 retention, but certainly has the body habitus to suggest there may be an element of obstructive sleep apnea that will be worked up as an outpatient. No indication for bronchodilators at this point. I doubt the tachycardia is related to significant venosus thromboembolic disorder or pulmonary emboli, but even if that were the case, he is on the appropriate treatment with full anticoagulation and he is going to be discharged on full anticoagulation. I do not think there is any benefit to exposing him to IV contrast dye at this time. We will follow him clinically and begin supplemental oxygen if O2 sats fall below 90% and I will get a baseline CO2 level/ABG and depending on the result, we will offer him bilevel positive airway pressure ventilation therapy at bedtime. Cardiovascular kang, I believe some of the tachycardia is driven by pain. There may also be an element of anxiety. the numbers do not suggest significant intravascular volume depletion. Serum hemoglobin is holding, 13.4 at this point, probably drop secondary to hemodilution. We will go ahead and I will begin some low dose beta blockade and the EKG will be repeated, old EKG suggests evidence of coronary artery disease and actually I will go ahead and get one set of cardiac enzymes to ensure that we are not also having an acute coronary syndrome at the same time. He certainly is at risk for that. GI nutritional kang, no significant issues there. Oral nutrition will be the feeding modality of choice. I will put him on GI prophylaxis, especially with him on full anticoagulation and follow clinically. From a renal standpoint, no major electrolyte abnormalities. We will continue to follow inputs and outputs with gentle volume resuscitation as necessary. From a GIFTED PROGRAM TEACHER standpoint, no acute indication for neuro imaging, the exam is grossly nonfocal. From a hematologic standpoint, we will continue full anticoagulation and keep an eye on his hemoglobin levels. From a general and hospital healthcare maintenance standpoint, he is going to be placed on GI prophylaxis. Flu and pneumonia vaccination will be per protocol. Thank you very much for the consult, Dr. Patton. We will follow along. We will make further recommendations as the picture progresses/becomes clearer. We will keep him in the intensive care unit in the short term and until cleared by the vascular team as there is always a risk of bleeding. JOB# [id number] SINDY/NELLY
[2016-04-22] MEDS: DILAUDID IV PRN ×4 (01:15→18:49)
[2016-04-22 03:10] LABS: INR 1.24 (0.87-1.13)
[2016-04-22] MEDS: HEPARIN/ 0.45% NACL-25,000 UNIT/500 ML 25,000 UNIT/500 ML BAG IV SCH ×2 (03:35→19:35)
[2016-04-22] MEDS: NORCO 5/325 PO PRN ×2 (05:21→22:51)
[2016-04-22] MEDS: NEURONTIN PO SCH (06:14)
[2016-04-22] MEDS: GLUCOPHAGE PO SCH ×2 (09:00→17:45)
[2016-04-22] MEDS: NOVOLOG SUB-Q SCH ×4 (09:00→22:53)
[2016-04-22] MEDS: GLUCOTROL XL PO SCH (09:31)
[2016-04-22] MEDS: PLAVIX PO SCH (09:31)
[2016-04-22] MEDS: LOPRESSOR PO SCH ×2 (09:32→22:48)
[2016-04-22] MEDS: IMDUR PO SCH (09:33)
[2016-04-22] MEDS: ASPIRIN PO SCH (09:33)
[2016-04-22] MEDS: TRENTAL PO SCH ×3 (10:00→22:52)
--- NOTE | 2016-04-22 11:01 | Progress Note ---
Assessment and Plan Pt s/p fem-fem bypass. Both feet warm and appear adequately perfused. On Heparin and Coumadin. INR is subtherapeutic ~1.2. Cont anticoagulation on both, Heparin and Coumain. Monitor daily INR. Pt unable to stand independently, or ambulate (change from outpt). Will consult Neurology, and Physical therapy. Will transfer to floor. - Patient Problems (1) Atherosclerosis of [place] arteries of extremity with rest pain Current Visit: Yes Status: Acute Qualifiers: Peripheral atherosclerosis location: P Laterality: L (2) Paresthesia of bilateral legs Current Visit: Yes Status: Acute Subjective Date of service: 04/22/16 Principal diagnosis: left foot ischemia Interval history: Pt awake and alert. Min incisional discomfort well tolerated with oral analgesics. Unable to stand or ambulate over the weekend. Objective - Constitutional Vitals: Vital Signs - 12hr 04/21/16 04/21/16 04/21/16 23:00 23:16 23:30 Temperature Pulse Rate 107 H 98 H 97 H Respiratory 21 14 18 Rate Blood Pressure 125/83 115/63 115/63 O2 Sat by Pulse 97 96 98 Oximetry 04/21/16 04/22/16 04/22/16 23:46 00:00 00:16 Temperature 97.5 F L Pulse Rate 97 H 94 H 93 H Respiratory 19 18 19 Rate Blood Pressure 115/63 115/63 102/71 O2 Sat by Pulse 98 98 98 Oximetry 04/22/16 04/22/16 04/22/16 00:30 00:46 01:00 Temperature Pulse Rate 97 H 94 H 93 H Respiratory 27 H 25 H 20 Rate Blood Pressure 102/71 102/71 102/71 O2 Sat by Pulse 97 98 97 Oximetry 04/22/16 04/22/16 04/22/16 01:16 01:30 01:46 Temperature Pulse Rate 93 H 94 H 90 Respiratory 20 20 19 Rate Blood Pressure 107/68 107/68 107/68 O2 Sat by Pulse 97 96 96 Oximetry 04/22/16 04/22/16 04/22/16 02:00 02:16 02:30 Temperature Pulse Rate 92 H 91 H 97 H Respiratory 17 14 15 Rate Blood Pressure 107/68 127/79 127/79 O2 Sat by Pulse 96 98 97 Oximetry 04/22/16 04/22/16 04/22/16 02:46 03:00 03:16 Temperature Pulse Rate 91 H 93 H 93 H Respiratory 22 23 16 Rate Blood Pressure 127/79 127/79 130/81 O2 Sat by Pulse 96 96 97 Oximetry 04/22/16 04/22/16 04/22/16 03:30 03:46 04:00 Temperature 99 F Pulse Rate 83 88 89 Respiratory 19 18 20 Rate Blood Pressure 130/81 130/81 126/77 O2 Sat by Pulse 96 97 97 Oximetry 04/22/16 04/22/16 04/22/16 04:16 04:30 04:46 Temperature Pulse Rate 92 H 94 H 86 Respiratory 21 18 17 Rate Blood Pressure 126/77 126/77 126/77 O2 Sat by Pulse 96 96 97 Oximetry 04/22/16 04/22/16 04/22/16 05:00 05:16 05:30 Temperature Pulse Rate 90 92 H 93 H Respiratory 20 13 23 Rate Blood Pressure 130/78 130/78 130/78 O2 Sat by Pulse 97 98 95 Oximetry 04/22/16 04/22/16 04/22/16 05:46 06:00 06:16 Temperature Pulse Rate 89 91 H 93 H Respiratory 23 16 14 Rate Blood Pressure 130/78 130/78 101/64 O2 Sat by Pulse 99 98 97 Oximetry 04/22/16 04/22/16 04/22/16 06:30 06:46 07:00 Temperature Pulse Rate 89 88 93 H Respiratory 15 17 17 Rate Blood Pressure 101/64 101/64 108/75 O2 Sat by Pulse 97 97 98 Oximetry 04/22/16 04/22/16 04/22/16 07:16 07:30 07:46 Temperature Pulse Rate 86 93 H 90 Respiratory 20 19 23 Rate Blood Pressure 108/75 108/75 108/75 O2 Sat by Pulse 96 97 97 Oximetry 04/22/16 04/22/16 04/22/16 08:00 08:16 08:30 Temperature 97.9 F Pulse Rate 86 91 H 95 H Respiratory 14 21 14 Rate Blood Pressure 108/75 108/75 108/75 O2 Sat by Pulse 98 97 98 Oximetry 04/22/16 04/22/16 04/22/16 08:46 09:00 09:01 Temperature Pulse Rate 96 H 99 H Respiratory 21 16 Rate Blood Pressure 109/70 110/63 O2 Sat by Pulse 96 98 97 Oximetry 04/22/16 04/22/16 04/22/16 09:16 09:30 09:32 Temperature Pulse Rate 96 H 96 H 95 H Respiratory 17 18 Rate Blood Pressure 110/63 110/63 110/63 O2 Sat by Pulse 96 96 Oximetry 04/22/16 04/22/16 09:33 09:46 Temperature Pulse Rate 95 H Respiratory 18 Rate Blood Pressure 110/63 O2 Sat by Pulse Oximetry General appearance: Present: no acute distress - EENT Eyes: EOM intact ENT: hearing intact - Neck Neck: supple - Respiratory Respiratory effort: normal Extremities: normal temperature Extremity abnormal: pulses diminished (but both feet warm and appear adequately perfused.) - Neurologic Neurologic: other (LLE weakness compared to right. Decreased sensation bilat Right > the Left.) - Psychiatric Psychiatric: appropriate mood/affect, intact judgment & insight, cooperative - Labs CBC & Chem 7: 04/21/16 04:49 04/20/16 03:08 Labs: Abnormal lab results 04/21/16 04/21/16 04/21/16 Range/Units 12:18 14:43 15:54 PT (12.2-14.9) Sec. INR (0.87-1.13) Heparin Anti-Xa Level (0.3-0.7) U.I./ml POC ABG pCO2 (35-45) POC ABG pO2 (80-105) POC Glucose 200 H 189 H (70-105) Total Creatine Kinase 8731 H (55-170) units/L CK-MB (CK-2) 13.4 H (0.0-4.0) ng/mL 04/21/16 04/21/16 04/21/16 Range/Units 16:43 17:53 21:20 PT (12.2-14.9) Sec. INR (0.87-1.13) Heparin Anti-Xa Level 0.12 L (0.3-0.7) U.I./ml POC ABG pCO2 31.8 L (35-45) POC ABG pO2 79 L (80-105) POC Glucose 183 H (70-105) Total Creatine Kinase (55-170) units/L CK-MB (CK-2) (0.0-4.0) ng/mL 04/22/16 04/22/16 04/22/16 Range/Units 02:43 02:43 07:42 PT 15.5 H (12.2-14.9) Sec. INR 1.24 H (0.87-1.13) Heparin Anti-Xa Level 0.21 L 0.22 L (0.3-0.7) U.I./ml POC ABG pCO2 (35-45) POC ABG pO2 (80-105) POC Glucose (70-105) Total Creatine Kinase (55-170) units/L CK-MB (CK-2) (0.0-4.0) ng/mL 04/22/16 Range/Units 07:53 PT (12.2-14.9) Sec. INR (0.87-1.13) Heparin Anti-Xa Level (0.3-0.7) U.I./ml POC ABG pCO2 (35-45) POC ABG pO2 (80-105) POC Glucose 179 H (70-105) Total Creatine Kinase (55-170) units/L CK-MB (CK-2) (0.0-4.0) ng/mL
--- NOTE | 2016-04-22 12:50 | Consultation ---
History of Present Illness Consult date: 04/22/16 Requesting physician: SUJATHA SORIANO Reason for Consult: leg weakness Chief complaint: leg weakness b/l History of present illness: 45 YO M Hx DM2/PVD and stroke on ASA 325/Plavix w/o residual deficit who was admitted for L fem-fem bypass completed 04/19. On 04/20 8 AM he noticed leg weakness causing difficulty walking/fall. He has never before experienced such a sx. He notes b/l leg numbness as well. Sx are constant. There are no clear aggravating, relieving or temporal factors. Severity was enough to cause inability to effectively ambulate. He affirms L calf pain but otherwise denies pain. Past History Past Medical History: diabetes, hypertension, PVD Past Surgical History: Other (fem-fem bypass on L) Social history: , smoking. denies: alcohol abuse, prescription drug abuse, IV drug use Family history: no significant family history Medications and Allergies Allergies Allergy/AdvReac Type Severity Reaction Status Date / Time No Known Allergies Allergy Unverified 04/15/16 11:45 Home Medications Medication Instructions Recorded Confirmed Last Taken Type ALPRAZolam [Xanax TAB] 0.25 mg PO TID PRN 04/15/16 04/19/16 04/14/16 21:00 History Aspirin [Aspirin TAB] 325 mg PO ONCE 04/15/16 04/19/16 04/17/16 09:00 History AtorvaSTATin [Lipitor] 80 mg PO QDAY 04/15/16 04/19/16 04/18/16 09:00 History Clopidogrel Bisulfate [Plavix] 75 mg PO QDAY 04/15/16 04/19/16 04/18/16 09:00 History ISOSORBIDE MONOnitrate [Imdur ER] 60 mg PO QDAY 04/15/16 04/19/16 04/18/16 09: 00 History Metformin HCl [Glucophage] 1,000 mg PO BID 04/15/16 04/19/16 04/17/16 09:00 History Pentoxifylline [TRENtal] 400 mg PO TID 04/15/16 04/19/16 04/18/16 21:00 History Warfarin [Coumadin] 10 mg PO QDAY 04/15/16 04/19/16 04/14/16 09:00 History glipiZIDE [glipiZIDE ER] 5 mg PO QAM 04/15/16 04/19/16 04/15/16 09:00 History Active Meds: Active Medications Acetaminophen/Hydrocodone Bitart ([place] 5/325) 2 each PO Q6H PRN PRN Reason: Pain, Moderate (4-6) Last Admin: 04/22/16 05:21 Dose: 2 each Alprazolam (Xanax) 0.25 mg PO TID PRN PRN Reason: Anxiety Last Admin: 04/21/16 22:23 Dose: 0.25 mg Aspirin (Aspirin) 325 mg PO DAILY [facility] Last Admin: 04/22/16 09:33 Dose: 325 mg Atorvastatin Calcium (Lipitor) 80 mg PO QDAY [facility] Last Admin: 04/22/16 09:31 Dose: 80 mg Clopidogrel Bisulfate (Plavix) 75 mg PO QDAY [facility] Last Admin: 04/22/16 09:31 Dose: 75 mg Diphenhydramine HCl (Benadryl) 50 mg PO Q6H PRN PRN Reason: Itching Last Admin: 04/20/16 05:08 Dose: 50 mg Glipizide (Glucotrol Xl) 5 mg PO QAM [facility] Last Admin: 04/22/16 09:31 Dose: 5 mg Hydromorphone HCl (Dilaudid) 1 mg IV Q4H PRN PRN Reason: Pain , Severe (7-10) Last Admin: 04/22/16 09:46 Dose: 1 mg Heparin Sodium/Sodium Chloride (Heparin/ 0.45% Nacl-25,000 Unit/500 Ml) 25,000 unit in 500 mls @ 30 mls/hr IV TITR MICHAEL; 1,500 UNITS/HR PRN Reason: Protocol Last Titration: 04/22/16 09:26 Dose: 1,650 units/hr, 33 mls/hr Insulin Aspart (Novolog) 0 units SUB-Q ACHS [facility] PRN Reason: Protocol Last Admin: 04/22/16 11:54 Dose: 3 units Isosorbide Mononitrate (Imdur) 60 mg PO QDAY [facility] Last Admin: 04/22/16 09:33 Dose: 60 mg Metformin HCl (Glucophage) 1,000 mg PO BIDDIAB [facility] Last Admin: 04/22/16 09:00 Dose: 1,000 mg Metoprolol Tartrate (Lopressor) 12.5 mg PO BID [facility] Last Admin: 04/22/16 09:32 Dose: 12.5 mg Morphine Sulfate (Morphine) 2 mg IV Q4H PRN PRN Reason: Pain, Moderate (4-6) Last Admin: 04/19/16 15:37 Dose: 2 mg Morphine Sulfate (Morphine) 4 mg IV Q4H PRN PRN Reason: Pain , Severe (7-10) Last Admin: 04/19/16 19:57 Dose: 4 mg Naloxone HCl (Narcan 0.4 Mg/1 Ml) 0.1 mg IV Q2MIN PRN PRN Reason: Res Rate </= 8 or 02 SAT < 92% Ondansetron HCl (Zofran) 4 mg IV Q8H PRN PRN Reason: Nausea And Vomiting Pentoxifylline (Trental) 400 mg PO TID [facility] Last Admin: 04/22/16 10:00 Dose: Not Given Pregabalin (Lyrica) 50 mg PO TID [facility] Warfarin Sodium (Coumadin) 10 mg PO QDAY@1700 [facility] PRN Reason: Protocol Last Admin: 04/21/16 17:32 Dose: 10 mg Review of Systems Constitutional: fatigue, weakness Neurological: weakness, parathesias, numbness, gait dysfunction, motor disturbance, sensory deficit Physical Examination - Vital Signs Vital Signs: Vital Signs Temp Pulse Resp BP 97.7 F 88 18 140/84 04/16/16 12:10 04/16/16 12:10 04/16/16 12:10 04/16/16 12:10 - Constitutional General appearance: comfortable - EENT EENT: Present: ATNC, PERRL, mucous membranes moist, hearing intact, vision intact - Respiratory Respiratory: Present: chest non-tender, normal breath sounds, no respiratory distress - Cardiovascular Cardiovascular: Present: regular rate Extremities: Present: no peripheral edema bilatateraly, no clubbing, cyanosis, no inflammation, no ischemia or petechiae - Gastrointestinal Gastrointestinal: Present: normoactive bowel sounds, soft, non-distended - Integumentary Integumentary: Present: normal - Neurologic Cranial nerve examination: PERRL, EOMI, VFF, V1/V2/V3 grossly intact, tongue midline, intact, intact shoulder shrug, intact cough reflex, Intact Vestibulo- ocular r, intact corneal reflex, facial droop (subtle R?), normal palatal elevation Speech examination: intact Sensorimotor examination: intact Motor examination - right side: 3/5: dorsiflexion, toe extension (EHL), 4/5: hip flexors, knee extensors, plantarflexion, 5/5: biceps, triceps, wrist flexion , wrist extension, fiber optic assembler Motor examination - left side: 3/5: dorsiflexion, toe extension (EHL), 4/5: hip flexors, knee extensors, plantarflexion, 5/5: biceps, triceps, wrist flexion, wrist extension, fiber optic assembler Detailed sensory examination: light touch (diminished in b/l LE), vibration ( dmininshed in b/l LE) Reflexes: 0: ankle, knee, 2+: bicep, tricep - Musculoskeletal Musculoskeletal: Present: no fluid collection, no pain, normal range of motion - Psychiatric Psychiatric: Present: mood/affect appropriate, cooperative Results - Laboratory Findings CBC and BMP: 04/21/16 04:49 04/20/16 03:08 Abnormal Lab Findings: Abnormal Labs 04/16/16 04/16/16 04/16/16 12:30 12:30 12:30 WBC RBC 6.37 H Hgb 16.5 H Hct 48.8 H MCV 77 L MCH 26 L RDW 16.9 H [place] % (Auto) 8.4 H PT 16.6 H INR 1.35 H Heparin Anti-Xa Level POC ABG pCO2 POC ABG pO2 Sodium 136 L Chloride 96.3 L Carbon Dioxide Glucose 285 H POC Glucose Calcium Total Creatine Kinase CK-MB (CK-2) 04/19/16 04/19/16 04/19/16 07:03 14:01 15:02 WBC RBC Hgb Hct MCV MCH RDW [place] % (Auto) PT INR Heparin Anti-Xa Level POC ABG pCO2 POC ABG pO2 Sodium Chloride Carbon Dioxide Glucose POC Glucose 213 H 388 H 415 H Calcium Total Creatine Kinase CK-MB (CK-2) 04/19/16 04/19/16 04/19/16 15:10 15:10 16:55 WBC 16.8 H RBC 5.94 H Hgb Hct 46.3 H MCV 78 L MCH 25 L RDW 17.1 H [place] % (Auto) PT INR Heparin Anti-Xa Level 0.11 L POC ABG pCO2 POC ABG pO2 Sodium Chloride Carbon Dioxide Glucose POC Glucose 310 H Calcium Total Creatine Kinase CK-MB (CK-2) 04/19/16 04/19/16 04/20/16 17:55 22:55 03:08 WBC RBC Hgb Hct MCV MCH RDW [place] % (Auto) PT INR Heparin Anti-Xa Level POC ABG pCO2 POC ABG pO2 Sodium 136 L 136 L Chloride 97.6 L 95.7 L Carbon Dioxide 19 L Glucose 365 H 320 H POC Glucose 255 H Calcium 8.0 L 7.9 L Total Creatine Kinase CK-MB (CK-2) 04/20/16 04/20/16 04/20/16 03:08 03:08 11:51 WBC RBC Hgb Hct MCV MCH RDW [place] % (Auto) PT 15.3 H INR 1.22 H Heparin Anti-Xa Level 1.18 H POC ABG pCO2 POC ABG pO2 Sodium Chloride Carbon Dioxide Glucose POC Glucose 277 H Calcium Total Creatine Kinase CK-MB (CK-2) 04/20/16 04/20/16 04/20/16 13:10 15:27 21:55 WBC RBC Hgb Hct MCV MCH RDW [place] % (Auto) PT INR Heparin Anti-Xa Level 0.89 H POC ABG pCO2 POC ABG pO2 Sodium Chloride Carbon Dioxide Glucose POC Glucose 282 H 243 H Calcium Total Creatine Kinase CK-MB (CK-2) 04/21/16 04/21/16 04/21/16 06:37 12:18 14:43 WBC RBC Hgb Hct MCV MCH RDW [place] % (Auto) PT INR Heparin Anti-Xa Level POC ABG pCO2 POC ABG pO2 Sodium Chloride Carbon Dioxide Glucose POC Glucose 216 H 200 H Calcium Total Creatine Kinase 8731 H CK-MB (CK-2) 13.4 H 04/21/16 04/21/16 04/21/16 15:54 16:43 17:53 WBC RBC Hgb Hct MCV MCH RDW [place] % (Auto) PT INR Heparin Anti-Xa Level 0.12 L POC ABG pCO2 31.8 L POC ABG pO2 79 L Sodium Chloride Carbon Dioxide Glucose POC Glucose 189 H Calcium Total Creatine Kinase CK-MB (CK-2) 04/21/16 04/22/16 04/22/16 21:20 02:43 02:43 WBC RBC Hgb Hct MCV MCH RDW [place] % (Auto) PT 15.5 H INR 1.24 H Heparin Anti-Xa Level 0.21 L POC ABG pCO2 POC ABG pO2 Sodium Chloride Carbon Dioxide Glucose POC Glucose 183 H Calcium Total Creatine Kinase CK-MB (CK-2) 04/22/16 04/22/16 04/22/16 07:42 07:53 11:43 WBC RBC Hgb Hct MCV MCH RDW [place] % (Auto) PT INR Heparin Anti-Xa Level 0.22 L POC ABG pCO2 POC ABG pO2 Sodium Chloride Carbon Dioxide Glucose POC Glucose 179 H 197 H Calcium Total Creatine Kinase CK-MB (CK-2) Assessment and Plan 45 YO M Hx DM2/PVD and stroke on ASA 325/Plavix/Trental/Coumadin w/o residual deficit s/p L fem-fem bypass completed 04/19 c/b reported new onset b/l LE distal > proximal weakness and numbness. Neuro exam w/ evident weakness in knee flexion/dorsiflexion/EHL greater than knee extension/plantar flexion, absent patellar/Achilles DTRs but preserved UE DTRs and decreased sensation to all modalities inferior to the knees. 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 There are no clear myelopathic signs. Plan: 1. Neuro checks 2. urgent MRI B/C/T/L spine w/o Alberto 3. PT/OT
[2016-04-22] MEDS: XANAX PO PRN (14:56)
[2016-04-22] MEDS: LYRICA PO SCH ×2 (14:56→20:00)
[2016-04-22] MEDS: COUMADIN PO SCH (18:23)
--- NOTE | 2016-04-22 18:26 | Progress Note ---
Assessment and Plan - Patient Problems (1) Atherosclerosis of [place] arteries of extremity with rest pain Current Visit: Yes Status: Acute Qualifiers: Peripheral atherosclerosis location: P Laterality: L Plan to address problem: - revascularization per vascular team - anticoagulation - analgesia - PT/OT (2) Morbid obesity due to excess calories Current Visit: Yes Status: Acute Plan to address problem: - outpatient PSG recommended - supplemental oxygen prn while asleep - weight loss (3) Paresthesia of bilateral legs Current Visit: Yes Status: Acute Plan to address problem: - ? peripheral vascular disease related - no loss of movement and no posterior vertebral point tenderness (4) Uncontrolled diabetes mellitus Current Visit: Yes Status: Chronic Qualifiers: Diabetes mellitus type: type 2 Diabetes mellitus complication status: with circulatory complication Diabetes mellitus complication detail: with other circulatory complications Diabetic retinopathy severity: D Diabetes mellitus macular edema: D Diabetes mellitus fpc insulin use: without long term acute care registered nurse use Chronic kidney disease stage: C Qualified Code(s): E11.59 - Type 2 diabetes mellitus with other circulatory complications; E11.65 - Type 2 diabetes mellitus with hyperglycemia Plan to address problem: - continue SSI Subjective Date of service: 04/22/16 Principal diagnosis: Acute left foot ischemia; Peripheral Vascular disease; Obesity Interval history: Seen and examined at bedside; 24 hour events reviewed; nursing and respiratory care staff consulted; no adverse overnight events reported to me; resting in bed ; sleeping really initially; appears depressed; denies acute chest pains or increased SOB Objective Vital Signs - 12hr 04/22/16 04/22/16 04/22/16 06:30 06:46 07:00 Temperature Pulse Rate 89 88 93 H Pulse Rate [ From Monitor] Pulse Rate [ Right Radial] Respiratory 15 17 17 Rate Blood Pressure 101/64 101/64 108/75 Blood Pressure [Left Arm] O2 Sat by Pulse 97 97 98 Oximetry 04/22/16 04/22/16 04/22/16 07:16 07:30 07:46 Temperature Pulse Rate 86 93 H 90 Pulse Rate [ From Monitor] Pulse Rate [ Right Radial] Respiratory 20 19 23 Rate Blood Pressure 108/75 108/75 108/75 Blood Pressure [Left Arm] O2 Sat by Pulse 96 97 97 Oximetry 04/22/16 04/22/16 04/22/16 08:00 08:16 08:30 Temperature 97.9 F Pulse Rate 86 91 H 95 H Pulse Rate [ 92 H From Monitor] Pulse Rate [ Right Radial] Respiratory 16 21 14 Rate Blood Pressure 108/75 108/75 108/75 Blood Pressure [Left Arm] O2 Sat by Pulse 99 97 98 Oximetry 04/22/16 04/22/16 04/22/16 08:46 09:00 09:01 Temperature Pulse Rate 96 H 99 H Pulse Rate [ From Monitor] Pulse Rate [ Right Radial] Respiratory 21 16 Rate Blood Pressure 109/70 110/63 Blood Pressure [Left Arm] O2 Sat by Pulse 96 98 97 Oximetry 04/22/16 04/22/16 04/22/16 09:16 09:30 09:32 Temperature Pulse Rate 96 H 96 H 95 H Pulse Rate [ From Monitor] Pulse Rate [ Right Radial] Respiratory 17 18 Rate Blood Pressure 110/63 110/63 110/63 Blood Pressure [Left Arm] O2 Sat by Pulse 96 96 Oximetry 04/22/16 04/22/16 04/22/16 09:33 09:46 10:00 Temperature Pulse Rate 95 H 94 H Pulse Rate [ From Monitor] Pulse Rate [ Right Radial] Respiratory 13 Rate Blood Pressure 110/63 110/63 110/63 Blood Pressure [Left Arm] O2 Sat by Pulse 97 92 Oximetry 04/22/16 04/22/16 04/22/16 10:16 10:30 10:46 Temperature Pulse Rate 97 H 88 84 Pulse Rate [ From Monitor] Pulse Rate [ Right Radial] Respiratory 14 16 20 Rate Blood Pressure 110/63 110/63 110/63 Blood Pressure [Left Arm] O2 Sat by Pulse 97 93 94 Oximetry 04/22/16 04/22/16 04/22/16 11:00 11:16 11:30 Temperature Pulse Rate 79 81 80 Pulse Rate [ From Monitor] Pulse Rate [ Right Radial] Respiratory 15 22 18 Rate Blood Pressure 98/57 98/57 98/57 Blood Pressure [Left Arm] O2 Sat by Pulse 93 97 95 Oximetry 04/22/16 04/22/16 04/22/16 11:46 12:00 12:16 Temperature Pulse Rate 82 81 92 H Pulse Rate [ From Monitor] Pulse Rate [ Right Radial] Respiratory 19 19 13 Rate Blood Pressure 98/57 98/57 98/57 Blood Pressure [Left Arm] O2 Sat by Pulse 92 95 96 Oximetry 04/22/16 04/22/16 04/22/16 12:18 12:30 13:28 Temperature 97.7 F 97.9 F Pulse Rate 86 Pulse Rate [ From Monitor] Pulse Rate [ 90 Right Radial] Respiratory 21 20 Rate Blood Pressure 98/57 Blood Pressure 116/66 [Left Arm] O2 Sat by Pulse 95 98 Oximetry 04/22/16 16:08 Temperature 98 F Pulse Rate Pulse Rate [ From Monitor] Pulse Rate [ 90 Right Radial] Respiratory 18 Rate Blood Pressure Blood Pressure 116/68 [Left Arm] O2 Sat by Pulse Oximetry Constitutional: no acute distress, asleep Eyes: non-icteric ENT: oropharynx moist Neck: supple, no lymphadenopathy Effort: normal Ascultation: Bilateral: clear, diminished breath sounds Cardiovascular: regular rate and rhythm Gastrointestinal: normoactive bowel sounds, soft, non-tender, non-distended Integumentary: other (PVD changes to shins especially with loss of hair follicles) Extremities: other (PVD changes with weak pulse and pigmentation) Neurologic: normal mental status, non-focal exam, pupils equal and round, motor strength normal and Psychiatric: depressed CBC and BMP: 04/25/16 04:30 04/20/16 03:08 ABG, PT/INR, D-dimer: ABG POC ABG pH 7.447 (7.35-7.45) 04/21/16 16:43 POC ABG pCO2 31.8 (35-45) L 04/21/16 16:43 POC ABG pO2 79 (80-105) L 04/21/16 16:43 POC ABG HCO3 21.9 04/21/16 16:43 POC ABG Total CO2 23 04/21/16 16:43 POC ABG O2 Sat 96 04/21/16 16:43 PT/INR, D-dimer PT 15.5 Sec. (12.2-14.9) H 04/22/16 02:43 INR 1.24 (0.87-1.13) H 04/22/16 02:43 Abnormal lab findings: Abnormal Labs 04/16/16 04/16/16 04/16/16 12:30 12:30 12:30 WBC RBC 6.37 H Hgb 16.5 H Hct 48.8 H MCV 77 L MCH 26 L RDW 16.9 H Adams % (Auto) 8.4 H PT 16.6 H INR 1.35 H Heparin Anti-Xa Level POC ABG pCO2 POC ABG pO2 Sodium 136 L Chloride 96.3 L Carbon Dioxide Glucose 285 H POC Glucose Calcium Total Creatine Kinase CK-MB (CK-2) 04/19/16 04/19/16 04/19/16 07:03 14:01 15:02 WBC RBC Hgb Hct MCV MCH RDW Adams % (Auto) PT INR Heparin Anti-Xa Level POC ABG pCO2 POC ABG pO2 Sodium Chloride Carbon Dioxide Glucose POC Glucose 213 H 388 H 415 H Calcium Total Creatine Kinase CK-MB (CK-2) 04/19/16 04/19/16 04/19/16 15:10 15:10 16:55 WBC 16.8 H RBC 5.94 H Hgb Hct 46.3 H MCV 78 L MCH 25 L RDW 17.1 H Adams % (Auto) PT INR Heparin Anti-Xa Level 0.11 L POC ABG pCO2 POC ABG pO2 Sodium Chloride Carbon Dioxide Glucose POC Glucose 310 H Calcium Total Creatine Kinase CK-MB (CK-2) 04/19/16 04/19/16 04/20/16 17:55 22:55 03:08 WBC RBC Hgb Hct MCV MCH RDW Adams % (Auto) PT INR Heparin Anti-Xa Level POC ABG pCO2 POC ABG pO2 Sodium 136 L 136 L Chloride 97.6 L 95.7 L Carbon Dioxide 19 L Glucose 365 H 320 H POC Glucose 255 H Calcium 8.0 L 7.9 L Total Creatine Kinase CK-MB (CK-2) 04/20/16 04/20/16 04/20/16 03:08 03:08 11:51 WBC RBC Hgb Hct MCV MCH RDW Adams % (Auto) PT 15.3 H INR 1.22 H Heparin Anti-Xa Level 1.18 H POC ABG pCO2 POC ABG pO2 Sodium Chloride Carbon Dioxide Glucose POC Glucose 277 H Calcium Total Creatine Kinase CK-MB (CK-2) 04/20/16 04/20/16 04/20/16 13:10 15:27 21:55 WBC RBC Hgb Hct MCV MCH RDW Adams % (Auto) PT INR Heparin Anti-Xa Level 0.89 H POC ABG pCO2 POC ABG pO2 Sodium Chloride Carbon Dioxide Glucose POC Glucose 282 H 243 H Calcium Total Creatine Kinase CK-MB (CK-2) 04/21/16 04/21/16 04/21/16 06:37 12:18 14:43 WBC RBC Hgb Hct MCV MCH RDW Adams % (Auto) PT INR Heparin Anti-Xa Level POC ABG pCO2 POC ABG pO2 Sodium Chloride Carbon Dioxide Glucose POC Glucose 216 H 200 H Calcium Total Creatine Kinase 8731 H CK-MB (CK-2) 13.4 H 04/21/16 04/21/16 04/21/16 15:54 16:43 17:53 WBC RBC Hgb Hct MCV MCH RDW Adams % (Auto) PT INR Heparin Anti-Xa Level 0.12 L POC ABG pCO2 31.8 L POC ABG pO2 79 L Sodium Chloride Carbon Dioxide Glucose POC Glucose 189 H Calcium Total Creatine Kinase CK-MB (CK-2) 04/21/16 04/22/16 04/22/16 21:20 02:43 02:43 WBC RBC Hgb Hct MCV MCH RDW Adams % (Auto) PT 15.5 H INR 1.24 H Heparin Anti-Xa Level 0.21 L POC ABG pCO2 POC ABG pO2 Sodium Chloride Carbon Dioxide Glucose POC Glucose 183 H Calcium Total Creatine Kinase CK-MB (CK-2) 04/22/16 04/22/16 04/22/16 07:42 07:53 11:43 WBC RBC Hgb Hct MCV MCH RDW Adams % (Auto) PT INR Heparin Anti-Xa Level 0.22 L POC ABG pCO2 POC ABG pO2 Sodium Chloride Carbon Dioxide Glucose POC Glucose 179 H 197 H Calcium Total Creatine Kinase CK-MB (CK-2) 04/22/16 04/22/16 16:36 17:13 WBC RBC Hgb Hct MCV MCH RDW Adams % (Auto) PT INR Heparin Anti-Xa Level 0.29 L POC ABG pCO2 POC ABG pO2 Sodium Chloride Carbon Dioxide Glucose POC Glucose 200 H Calcium Total Creatine Kinase CK-MB (CK-2)
[2016-04-22] MEDS: BENADRYL PO PRN (22:50)
--- NOTE | 2016-04-22 23:49 | Consultation ---
History of Present Illness - Reason for Consult Consult date: 04/22/16 Medical Management Requesting physician: SUJATHA SORIANO - History of Present Illness For Diabetes management 45-year-old gentleman came for intervention for PVD with rest pain in the left lower extremity. He underwent left femoral exploration, right left femorofemoral bypass. Now patient has bilateral reflux imaging paresthesias supposedly from back pain issue since patient is obese and was lying flat on the table. He has some burning sensation posterior left calf and bilateral feet that is improving. Right after surgery he was complaining of inability to move bilateral feet and numbness. He has no complaints on incision site pain. He is legs are warm. Incisions clean and dry and intact. No hematomas. Past History Past Medical History: diabetes, hypertension, hyperlipidemia, PVD, other (PN) Past Surgical History: Other (fem-fem bypass on L) Social history: , smoking. denies: alcohol abuse, prescription drug abuse, IV drug use Family history: no significant family history Medications and Allergies Allergies Allergy/AdvReac Type Severity Reaction Status Date / Time No Known Allergies Allergy Unverified 04/15/16 11:45 Home Medications Medication Instructions Recorded Confirmed Last Taken Type ALPRAZolam [Xanax TAB] 0.25 mg PO TID PRN 04/15/16 04/19/16 04/14/16 21:00 History Aspirin [Aspirin TAB] 325 mg PO ONCE 04/15/16 04/19/16 04/17/16 09:00 History AtorvaSTATin [Lipitor] 80 mg PO QDAY 04/15/16 04/19/16 04/18/16 09:00 History Clopidogrel Bisulfate [Plavix] 75 mg PO QDAY 04/15/16 04/19/16 04/18/16 09:00 History ISOSORBIDE MONOnitrate [Imdur ER] 60 mg PO QDAY 04/15/16 04/19/16 04/18/16 09: 00 History Metformin HCl [Glucophage] 1,000 mg PO BID 04/15/16 04/19/16 04/17/16 09:00 History Pentoxifylline [TRENtal] 400 mg PO TID 04/15/16 04/19/16 04/18/16 21:00 History Warfarin [Coumadin] 10 mg PO QDAY 04/15/16 04/19/16 04/14/16 09:00 History glipiZIDE [glipiZIDE ER] 5 mg PO QAM 04/15/16 04/19/16 04/15/16 09:00 History Active Meds: Active Medications Acetaminophen/Hydrocodone Bitart ([place] 5/325) 2 each PO Q6H PRN PRN Reason: Pain, Moderate (4-6) Last Admin: 04/22/16 22:51 Dose: 2 each Alprazolam (Xanax) 0.25 mg PO TID PRN PRN Reason: Anxiety Last Admin: 04/22/16 14:56 Dose: 0.25 mg Aspirin (Aspirin) 325 mg PO DAILY [facility] Last Admin: 04/22/16 09:33 Dose: 325 mg Atorvastatin Calcium (Lipitor) 80 mg PO QDAY [facility] Last Admin: 04/22/16 09:31 Dose: 80 mg Clopidogrel Bisulfate (Plavix) 75 mg PO QDAY [facility] Last Admin: 04/22/16 09:31 Dose: 75 mg Diphenhydramine HCl (Benadryl) 50 mg PO Q6H PRN PRN Reason: Itching Last Admin: 04/22/16 22:50 Dose: 50 mg Glipizide (Glucotrol Xl) 5 mg PO QAM [facility] Last Admin: 04/22/16 09:31 Dose: 5 mg Hydromorphone HCl (Dilaudid) 1 mg IV Q4H PRN PRN Reason: Pain , Severe (7-10) Last Admin: 04/22/16 18:49 Dose: 1 mg Heparin Sodium/Sodium Chloride (Heparin/ 0.45% Nacl-25,000 Unit/500 Ml) 25,000 unit in 500 mls @ 30 mls/hr IV TITR MICHAEL; 1,500 UNITS/HR PRN Reason: Protocol Last Admin: 04/22/16 19:35 Dose: 1,800 units/hr, 36 mls/hr Insulin Aspart (Novolog) 0 units SUB-Q ACHS [facility] PRN Reason: Protocol Last Admin: 04/22/16 22:53 Dose: Not Given Isosorbide Mononitrate (Imdur) 60 mg PO QDAY [facility] Last Admin: 04/22/16 09:33 Dose: 60 mg Metformin HCl (Glucophage) 1,000 mg PO BIDDIAB [facility] Last Admin: 04/22/16 17:45 Dose: 1,000 mg Metoprolol Tartrate (Lopressor) 12.5 mg PO BID [facility] Last Admin: 04/22/16 22:48 Dose: Not Given Morphine Sulfate (Morphine) 2 mg IV Q4H PRN PRN Reason: Pain, Moderate (4-6) Last Admin: 04/19/16 15:37 Dose: 2 mg Morphine Sulfate (Morphine) 4 mg IV Q4H PRN PRN Reason: Pain , Severe (7-10) Last Admin: 04/19/16 19:57 Dose: 4 mg Naloxone HCl (Narcan 0.4 Mg/1 Ml) 0.1 mg IV Q2MIN PRN PRN Reason: Res Rate </= 8 or 02 SAT < 92% Ondansetron HCl (Zofran) 4 mg IV Q8H PRN PRN Reason: Nausea And Vomiting Pentoxifylline (Trental) 400 mg PO TID [facility] Last Admin: 04/22/16 22:52 Dose: 400 mg Pregabalin (Lyrica) 50 mg PO TID [facility] Last Admin: 04/22/16 20:00 Dose: 50 mg Warfarin Sodium (Coumadin) 10 mg PO QDAY@1700 [facility] PRN Reason: Protocol Last Admin: 04/22/16 18:23 Dose: 10 mg Review of Systems All systems: negative Exam - Constitutional Vitals: Temp Pulse Resp BP Pulse Ox 98 F 90 18 98/57 96 04/22/16 16:08 04/22/16 16:08 04/22/16 16:08 04/22/16 22:48 04/22/16 21:45 General appearance: Present: no acute distress, well-nourished - EENT Eyes: Present: PERRL ENT: hearing intact, clear oral mucosa - Neck Neck: Present: supple, normal ROM - Respiratory Respiratory effort: normal Respiratory: bilateral: CTA - Cardiovascular Heart Sounds: Present: S1 & S2. Absent: rub, click - Extremities Extremities: pulses symmetrical, No edema Peripheral Pulses: within normal limits - Abdominal General gastrointestinal: Present: soft, non-tender, non-distended, normal bowel sounds Male genitourinary: Present: normal - Integumentary Integumentary: Present: clear, warm, dry - Musculoskeletal Musculoskeletal: gait normal, strength equal bilaterally - Psychiatric Psychiatric: appropriate mood/affect, intact judgment & insight - Neurologic Neurologic: CNII-XII intact, moves all extremities Results - Labs CBC & Chem 7: 04/23/16 05:37 04/20/16 03:08 Labs: Abnormal lab results 04/22/16 04/22/16 04/22/16 Range/Units 02:43 02:43 07:42 PT 15.5 H (12.2-14.9) Sec. INR 1.24 H (0.87-1.13) Heparin Anti-Xa Level 0.21 L 0.22 L (0.3-0.7) U.I./ml POC Glucose (70-105) 04/22/16 04/22/16 04/22/16 Range/Units 07:53 11:43 16:36 PT (12.2-14.9) Sec. INR (0.87-1.13) Heparin Anti-Xa Level 0.29 L (0.3-0.7) U.I./ml POC Glucose 179 H 197 H (70-105) 04/22/16 04/22/16 Range/Units 17:13 21:06 PT (12.2-14.9) Sec. INR (0.87-1.13) Heparin Anti-Xa Level (0.3-0.7) U.I./ml POC Glucose 200 H 146 H (70-105) Assessment and Plan - Patient Problems (1) Uncontrolled diabetes mellitus Current Visit: Yes Status: Chronic Qualifiers: Diabetes mellitus type: type 2 Diabetes mellitus complication status: with circulatory complication Diabetes mellitus complication detail: with other circulatory complications Diabetic retinopathy severity: D Diabetes mellitus macular edema: D Diabetes mellitus nursing home insulin use: without academic adviser use Chronic kidney disease stage: C Qualified Code(s): E11.59 - Type 2 diabetes mellitus with other circulatory complications; E11.65 - Type 2 diabetes mellitus with hyperglycemia Plan to address problem: Patient started on Levemir 20 units SQ HS.Will follow patient and adjust dosage. (2) HTN (hypertension) Current Visit: Yes Status: Chronic Qualifiers: Hypertension type: essential hypertension Qualified Code(s): I10 - Essential (primary) hypertension (3) HLD (hyperlipidemia) Current Visit: Yes Status: Chronic Qualifiers: Hyperlipidemia type: mixed hyperlipidemia Qualified Code(s): E78.2 - Mixed hyperlipidemia Plan to address problem: on statins (4) PAD (peripheral artery disease) Current Visit: Yes Status: Chronic Plan to address problem: S/p procedure (5) Anticoagulant long-term use Current Visit: Yes Status: Chronic Plan to address problem: On coumadin Subtherapeutic
[2016-04-23] MEDS: XANAX PO PRN ×2 (02:51→12:26)
[2016-04-23] MEDS: DILAUDID IV PRN ×3 (02:52→21:50)
[2016-04-23 06:18] LABS: Hematocrit 37.6 % (35.5-45.6); Hemoglobin 12.5 gm/dl (11.8-15.2)
[2016-04-23 06:27] LABS: INR 1.27 (0.87-1.13)
[2016-04-23] MEDS ORDERED: LEVEMIR SUB-Q SCH (08:00)
[2016-04-23] MEDS: TRENTAL PO SCH ×3 (08:16→21:00)
[2016-04-23] MEDS: GLUCOPHAGE PO SCH ×2 (08:17→16:50)
[2016-04-23] MEDS: LYRICA PO SCH ×3 (08:17→21:00)
[2016-04-23] MEDS: NOVOLOG SUB-Q SCH ×4 (08:18→22:00)
[2016-04-23] MEDS: GLUCOTROL XL PO SCH (08:18)
[2016-04-23] MEDS: PLAVIX PO SCH (09:40)
[2016-04-23] MEDS: ASPIRIN PO SCH (09:40)
[2016-04-23] MEDS: IMDUR PO SCH (09:41)
[2016-04-23] MEDS: LOPRESSOR PO SCH ×2 (09:44→21:31)
[2016-04-23] MEDS: HEPARIN/ 0.45% NACL-25,000 UNIT/500 ML 25,000 UNIT/500 ML BAG IV SCH (09:53)
[2016-04-23] MEDS ORDERED: LOVENOX SUB-Q ONE ×2 (10:00→11:00)
[2016-04-23] MEDS: BENADRYL PO PRN (12:26)
[2016-04-23] MEDS: MORPHINE IV PRN (12:26)
--- NOTE | 2016-04-23 15:09 | Progress Note ---
Assessment and Plan Pt is doing well from a surgical stand point. Neurology consult appreciated. Unfortunately the pt does not fit into the MRI machine. He continues on Heparin and Coumadin (Increased to 12mg daily). Inr subtherapeutic 1.27. Managed by Pharmacy Await Physical therapy evaluation and gait training. - Patient Problems (1) Atherosclerosis of [place] arteries of extremity with rest pain Current Visit: Yes Status: Acute Qualifiers: Peripheral atherosclerosis location: P Laterality: L (2) Paresthesia of bilateral legs Current Visit: Yes Status: Acute Subjective Date of service: 04/23/16 Principal diagnosis: left foot ischemia Interval history: Patient is awake and alert. He does complain of mild discomfort in the left lower leg at present. He has not been out of bed thus far. Objective - Constitutional Vitals: Vital Signs - 12hr 04/23/16 04/23/16 04/23/16 07:30 09:41 10:00 Temperature 98.1 F Pulse Rate 88 Pulse Rate [ 92 H Right Radial] Respiratory 20 Rate Blood Pressure 140/82 Blood Pressure 138/88 [Left Arm] O2 Sat by Pulse 98 98 Oximetry General appearance: Present: no acute distress - EENT Eyes: EOM intact ENT: hearing intact - Neck Neck: supple - Respiratory Respiratory effort: normal Extremities: no ischemia, normal temperature (both feet appear warm and appear well perfused.), abnormal (bilateral groin incisions are intact without erythema or drainage.) - Psychiatric Psychiatric: appropriate mood/affect, intact judgment & insight, cooperative - Labs CBC & Chem 7: 04/23/16 05:37 04/20/16 03:08 Labs: Abnormal lab results 04/22/16 04/22/16 04/22/16 Range/Units 16:36 17:13 21:06 PT (12.2-14.9) Sec. INR (0.87-1.13) Heparin Anti-Xa Level 0.29 L (0.3-0.7) U.I./ml POC Glucose 200 H 146 H (70-105) 04/23/16 04/23/16 04/23/16 Range/Units 05:37 06:09 11:06 PT 15.8 H (12.2-14.9) Sec. INR 1.27 H (0.87-1.13) Heparin Anti-Xa Level (0.3-0.7) U.I./ml POC Glucose 129 H 160 H (70-105)
[2016-04-23] MEDS: COUMADIN PO SCH ×2 (16:49→16:50)
--- NOTE | 2016-04-23 18:16 | Progress Note ---
Assessment and Plan Assessment and plan: 1. Peripheral vascular disease - status post left femoral-femoral bypass 04/19; management per vascular surgery; on vasodilators and anticoagulation (heparin drip bridging to Coumadin) 2. Bilateral lower extremities weakness/numbness - post surgery; neurology also consulted; CT spine and brain MRI were ordered, but it seems MRI will be unable to be obtained due to his weight; PT evaluation pending 3. Diabetes - uncontrolled; increased long acting insulin dose; continue Accu- Cheks and SSI to assess insulin requirements 4. Prior CVA - on dual antiplatelet therapy and statin History Interval history: Status post left femoral-femoral bypass Complaining of bilateral lower extremities weakness and numbness Hospitalist Physical - Constitutional Vitals: Temp Pulse Resp BP Pulse Ox 98.2 F 90 18 128/78 98 04/23/16 16:00 04/23/16 16:00 04/23/16 16:00 04/23/16 16:00 04/23/16 10:00 General appearance: Present: no acute distress, other (morbidly obese) - EENT Eyes: Present: PERRL, EOM intact. Absent: scleral icterus, conjunctival injection - Neck Neck: Present: supple, normal ROM. Absent: masses or JVD - Respiratory Respiratory effort: normal Respiratory: bilateral: CTA, negative: rhonchi, wheezing - Cardiovascular Rhythm: regular Heart Sounds: Present: S1 & S2. Absent: systolic murmur - Extremities Extremities: no ischemia - Abdominal General gastrointestinal: soft, non-tender, non-distended, normal bowel sounds - Integumentary Integumentary: Present: warm, dry. Absent: jaundice, rash - Psychiatric Psychiatric: cooperative - Neurologic Neurologic: CNII-XII intact, no focal deficits Results - Labs CBC & Chem 7: 04/23/16 05:37 04/20/16 03:08 Labs: Laboratory Last Values WBC 16.8 K/mm3 (4.5-11.0) H 04/19/16 15:10 RBC 5.94 M/mm3 (3.65-5.03) H 04/19/16 15:10 Hgb 12.5 gm/dl (11.8-15.2) 04/23/16 05:37 Hct 37.6 % (35.5-45.6) 04/23/16 05:37 MCV 78 fl (84-94) L 04/19/16 15:10 MCH 25 pg (28-32) L 04/19/16 15:10 MCHC 33 % (32-34) 04/19/16 15:10 RDW 17.1 % (13.2-15.2) H 04/19/16 15:10 Plt Count 257 K/mm3 (140-440) 04/23/16 05:37 Lymph % (Auto) 26.9 % (13.4-35.0) 04/16/16 12:30 [place] % (Auto) 8.4 % (0.0-7.3) H 04/16/16 12:30 Eos % (Auto) 1.3 % (0.0-4.3) 04/16/16 12:30 Baso % (Auto) 0.4 % (0.0-1.8) 04/16/16 12:30 Lymph # 2.3 K/mm3 (1.2-5.4) 04/16/16 12:30 [place] # 0.7 K/mm3 (0.0-0.8) 04/16/16 12:30 Eos # 0.1 K/mm3 (0.0-0.4) 04/16/16 12:30 Baso # 0.0 K/mm3 (0.0-0.1) 04/16/16 12:30 Seg Neutrophils % 63.0 % (40.0-70.0) 04/16/16 12:30 Seg Neutrophils # 5.4 K/mm3 (1.8-7.7) 04/16/16 12:30 PT 15.8 Sec. (12.2-14.9) H 04/23/16 05:37 INR 1.27 (0.87-1.13) H 04/23/16 05:37 APTT 24.7 Sec. (24.2-36.6) 04/19/16 15:10 Heparin Anti-Xa Level 0.35 U.I./ml (0.3-0.7) 04/23/16 01:26 POC ABG pH 7.447 (7.35-7.45) 04/21/16 16:43 POC ABG pCO2 31.8 (35-45) L 04/21/16 16:43 POC ABG pO2 79 (80-105) L 04/21/16 16:43 POC ABG HCO3 21.9 04/21/16 16:43 POC ABG Total CO2 23 04/21/16 16:43 POC ABG O2 Sat 96 04/21/16 16:43 POC ABG Base Excess -2 04/21/16 16:43 FiO2 2 % 04/21/16 16:43 Sodium 136 mmol/L (137-145) L 04/20/16 03:08 Potassium 3.9 mmol/L (3.6-5.0) D 04/20/16 03:08 Chloride 95.7 mmol/L (98-107) L 04/20/16 03:08 Carbon Dioxide 23 mmol/L (22-30) 04/20/16 03:08 Anion Gap 21 mmol/L 04/20/16 03:08 BUN 12 mg/dL (9-20) 04/20/16 03:08 Creatinine 0.9 mg/dL (0.8-1.5) 04/20/16 03:08 Estimated GFR > 60 ml/min 04/20/16 03:08 BUN/Creatinine Ratio 13.33 % 04/20/16 03:08 Glucose 320 mg/dL (75-100) H 04/20/16 03:08 POC Glucose 95 (70-105) 04/23/16 16:14 Calcium 7.9 mg/dL (8.4-10.2) L 04/20/16 03:08 Total Creatine Kinase 8731 units/L (55-170) H 04/21/16 14:43 CK-MB (CK-2) 13.4 ng/mL (0.0-4.0) H 04/21/16 14:43 CK-MB (CK-2) Rel Index 0.1 (0-4) 04/21/16 14:43 Troponin T < 0.010 ng/mL (0.00-0.029) 04/21/16 14:43 Blood Type B POSITIVE 04/16/16 12:30 Antibody Screen Negative 04/16/16 12:30
[2016-04-23] MEDS: LEVEMIR SUB-Q SCH (21:39)
--- NOTE | 2016-04-23 23:32 | Progress Note ---
Assessment and Plan Patient awake, resting on O2 3 litres. O2 satuaration 99%. Patient is weak. No acute respiratory distress. - Patient Problems (1) Atherosclerosis of [place] arteries of extremity with rest pain Current Visit: Yes Status: Acute Qualifiers: Peripheral atherosclerosis location: P Laterality: L Plan to address problem: Management as per vascular surgery. Patient is on coumadin. and trental (2) HTN (hypertension) Current Visit: Yes Status: Chronic Qualifiers: Hypertension type: essential hypertension Qualified Code(s): I10 - Essential (primary) hypertension Plan to address problem: Management as per primary care. (3) PAD (peripheral artery disease) Current Visit: Yes Status: Chronic Plan to address problem: Management as per vascular surgery. Patient is on coumadin and trental. (4) Uncontrolled diabetes mellitus Current Visit: Yes Status: Chronic Qualifiers: Diabetes mellitus type: type 2 Diabetes mellitus complication status: with circulatory complication Diabetes mellitus complication detail: with other circulatory complications Diabetic retinopathy severity: D Diabetes mellitus macular edema: D Diabetes mellitus mcfp insulin use: without metal ceiling builder use Chronic kidney disease stage: C Qualified Code(s): E11.59 - Type 2 diabetes mellitus with other circulatory complications; E11.65 - Type 2 diabetes mellitus with hyperglycemia Plan to address problem: Management as per primary care. Subjective Date of service: 04/23/16 Principal diagnosis: left foot ischemia Interval history: Patient alert,awake. No complaint of chest pain or shortness of breath.O2 satuaration 98% on room air. Cpmplaining leg pains. Objective Vital Signs - 12hr 04/23/16 04/23/16 04/23/16 16:00 21:31 21:47 Temperature 98.2 F Pulse Rate 99 H Pulse Rate [ 90 Right Radial] Respiratory 18 Rate Blood Pressure 138/72 Blood Pressure 128/78 [Left Arm] O2 Sat by Pulse 98 Oximetry Constitutional: alert, appears uncomfortable, other (Complaining pain in legs.) Eyes: non-icteric Neck: supple, no lymphadenopathy Ascultation: Bilateral: clear Cardiovascular: regular rate and rhythm Gastrointestinal: normoactive bowel sounds, soft, non-distended Integumentary: normal Extremities: other (Ischemia) Neurologic: normal mental status, non-focal exam, pupils equal and round Psychiatric: anxious CBC and BMP: 04/23/16 05:37 04/20/16 03:08 ABG, PT/INR, D-dimer: ABG POC ABG pH 7.447 (7.35-7.45) 04/21/16 16:43 POC ABG pCO2 31.8 (35-45) L 04/21/16 16:43 POC ABG pO2 79 (80-105) L 04/21/16 16:43 POC ABG HCO3 21.9 04/21/16 16:43 POC ABG Total CO2 23 04/21/16 16:43 POC ABG O2 Sat 96 04/21/16 16:43 PT/INR, D-dimer PT 15.8 Sec. (12.2-14.9) H 04/23/16 05:37 INR 1.27 (0.87-1.13) H 04/23/16 05:37 Abnormal lab findings: Abnormal Labs 04/16/16 04/16/16 04/16/16 12:30 12:30 12:30 WBC RBC 6.37 H Hgb 16.5 H Hct 48.8 H MCV 77 L MCH 26 L RDW 16.9 H [place] % (Auto) 8.4 H PT 16.6 H INR 1.35 H Heparin Anti-Xa Level POC ABG pCO2 POC ABG pO2 Sodium 136 L Chloride 96.3 L Carbon Dioxide Glucose 285 H POC Glucose Calcium Total Creatine Kinase CK-MB (CK-2) 04/19/16 04/19/16 04/19/16 07:03 14:01 15:02 WBC RBC Hgb Hct MCV MCH RDW [place] % (Auto) PT INR Heparin Anti-Xa Level POC ABG pCO2 POC ABG pO2 Sodium Chloride Carbon Dioxide Glucose POC Glucose 213 H 388 H 415 H Calcium Total Creatine Kinase CK-MB (CK-2) 04/19/16 04/19/16 04/19/16 15:10 15:10 16:55 WBC 16.8 H RBC 5.94 H Hgb Hct 46.3 H MCV 78 L MCH 25 L RDW 17.1 H [place] % (Auto) PT INR Heparin Anti-Xa Level 0.11 L POC ABG pCO2 POC ABG pO2 Sodium Chloride Carbon Dioxide Glucose POC Glucose 310 H Calcium Total Creatine Kinase CK-MB (CK-2) 04/19/16 04/19/16 04/20/16 17:55 22:55 03:08 WBC RBC Hgb Hct MCV MCH RDW [place] % (Auto) PT INR Heparin Anti-Xa Level POC ABG pCO2 POC ABG pO2 Sodium 136 L 136 L Chloride 97.6 L 95.7 L Carbon Dioxide 19 L Glucose 365 H 320 H POC Glucose 255 H Calcium 8.0 L 7.9 L Total Creatine Kinase CK-MB (CK-2) 04/20/16 04/20/16 04/20/16 03:08 03:08 11:51 WBC RBC Hgb Hct MCV MCH RDW [place] % (Auto) PT 15.3 H INR 1.22 H Heparin Anti-Xa Level 1.18 H POC ABG pCO2 POC ABG pO2 Sodium Chloride Carbon Dioxide Glucose POC Glucose 277 H Calcium Total Creatine Kinase CK-MB (CK-2) 04/20/16 04/20/16 04/20/16 13:10 15:27 21:55 WBC RBC Hgb Hct MCV MCH RDW [place] % (Auto) PT INR Heparin Anti-Xa Level 0.89 H POC ABG pCO2 POC ABG pO2 Sodium Chloride Carbon Dioxide Glucose POC Glucose 282 H 243 H Calcium Total Creatine Kinase CK-MB (CK-2) 04/21/16 04/21/16 04/21/16 06:37 12:18 14:43 WBC RBC Hgb Hct MCV MCH RDW [place] % (Auto) PT INR Heparin Anti-Xa Level POC ABG pCO2 POC ABG pO2 Sodium Chloride Carbon Dioxide Glucose POC Glucose 216 H 200 H Calcium Total Creatine Kinase 8731 H CK-MB (CK-2) 13.4 H 04/21/16 04/21/16 04/21/16 15:54 16:43 17:53 WBC RBC Hgb Hct MCV MCH RDW [place] % (Auto) PT INR Heparin Anti-Xa Level 0.12 L POC ABG pCO2 31.8 L POC ABG pO2 79 L Sodium Chloride Carbon Dioxide Glucose POC Glucose 189 H Calcium Total Creatine Kinase CK-MB (CK-2) 04/21/16 04/22/16 04/22/16 21:20 02:43 02:43 WBC RBC Hgb Hct MCV MCH RDW [place] % (Auto) PT 15.5 H INR 1.24 H Heparin Anti-Xa Level 0.21 L POC ABG pCO2 POC ABG pO2 Sodium Chloride Carbon Dioxide Glucose POC Glucose 183 H Calcium Total Creatine Kinase CK-MB (CK-2) 04/22/16 04/22/16 04/22/16 07:42 07:53 11:43 WBC RBC Hgb Hct MCV MCH RDW [place] % (Auto) PT INR Heparin Anti-Xa Level 0.22 L POC ABG pCO2 POC ABG pO2 Sodium Chloride Carbon Dioxide Glucose POC Glucose 179 H 197 H Calcium Total Creatine Kinase CK-MB (CK-2) 04/22/16 04/22/16 04/22/16 16:36 17:13 21:06 WBC RBC Hgb Hct MCV MCH RDW [place] % (Auto) PT INR Heparin Anti-Xa Level 0.29 L POC ABG pCO2 POC ABG pO2 Sodium Chloride Carbon Dioxide Glucose POC Glucose 200 H 146 H Calcium Total Creatine Kinase CK-MB (CK-2) 04/23/16 04/23/16 04/23/16 05:37 06:09 11:06 WBC RBC Hgb Hct MCV MCH RDW [place] % (Auto) PT 15.8 H INR 1.27 H Heparin Anti-Xa Level POC ABG pCO2 POC ABG pO2 Sodium Chloride Carbon Dioxide Glucose POC Glucose 129 H 160 H Calcium Total Creatine Kinase CK-MB (CK-2) 04/23/16 21:08 WBC RBC Hgb Hct MCV MCH RDW [place] % (Auto) PT INR Heparin Anti-Xa Level POC ABG pCO2 POC ABG pO2 Sodium Chloride Carbon Dioxide Glucose POC Glucose 113 H Calcium Total Creatine Kinase CK-MB (CK-2)
[2016-04-24] MEDS: DILAUDID IV PRN ×3 (04:17→21:51)
[2016-04-24 06:00] LABS: INR 1.74 (0.87-1.13)
[2016-04-24] MEDS: NOVOLOG SUB-Q SCH ×4 (08:19→22:00)
[2016-04-24] MEDS: LYRICA PO SCH ×3 (08:24→21:00)
[2016-04-24] MEDS: GLUCOTROL XL PO SCH (08:24)
[2016-04-24] MEDS: GLUCOPHAGE PO SCH ×2 (08:24→17:04)
[2016-04-24] MEDS: TRENTAL PO SCH ×3 (08:24→22:00)
[2016-04-24] MEDS: NORCO 5/325 PO PRN (08:37)
[2016-04-24] MEDS: XANAX PO PRN (08:37)
[2016-04-24] MEDS: ASPIRIN PO SCH (10:56)
[2016-04-24] MEDS: LOPRESSOR PO SCH ×2 (10:56→21:58)
[2016-04-24] MEDS: PLAVIX PO SCH (10:56)
[2016-04-24] MEDS: IMDUR PO SCH (10:57)
--- NOTE | 2016-04-24 11:37 | Event Note ---
Date: 04/24/16 I attempted to see this patient on 04/24 but was unable as the room was occupied by other providers on several occasions. I was called by Jaelyn-staff nurse that Pt's habitus is too wide for our MRI machine. As a result he will need either open MRI Brain/C/T/L-spine +/- Alberto OR CTH and CT Myelogram of C/T/L-spine w/ contrast. I have not ordered either of these alternative options as I am not clear of our resources to transport pt to open MRI. I am available for any questions/concerns but pt will require one of these imaging modalities.
[2016-04-24] MEDS: HEPARIN/ 0.45% NACL-25,000 UNIT/500 ML 25,000 UNIT/500 ML BAG IV SCH (13:09)
--- NOTE | 2016-04-24 14:39 | Progress Note ---
Assessment and Plan Pt's INR has increased to 1.74. Continue with Heparin and coumadin. Pt unable to get MRI due to pt's size. Neurology note reviewed (Discussed with Dr Castañeda). Will plan on Mylogram tomorrow. ENCOURAGED pt to remain active. He will lose endurance if he does not increase his activity levels. Will begin discharge planning for acute rehab. - Patient Problems (1) Atherosclerosis of [place] arteries of extremity with rest pain Current Visit: Yes Status: Acute Qualifiers: Peripheral atherosclerosis location: P Laterality: L (2) Paresthesia of bilateral legs Current Visit: Yes Status: Acute Subjective Principal diagnosis: left foot ischemia Interval history: Pt is awake. He continues to complain of bilat Lower ext numbness, and difficulty standing due to RLE weakness and LLE pain. He stated, "I was able to stand for about 30 seconds, I probably could have stood longer if my left calf didn't hurt". Objective - Constitutional Vitals: Vital Signs - 12hr 04/24/16 08:27 Temperature 98.0 F Pulse Rate [ 96 H Apical] Respiratory 20 Rate Blood Pressure 147/94 [Left Arm] O2 Sat by Pulse 97 Oximetry General appearance: Present: no acute distress - EENT Eyes: EOM intact ENT: hearing intact - Respiratory Respiratory effort: normal Extremities: no ischemia, normal temperature, abnormal (Bilat groin incisions intact without erythema or drainage.) - Psychiatric Psychiatric: appropriate mood/affect, intact judgment & insight, cooperative, other (moves both lower ext, right stronger then left. C/o decreased sensation from bilat knees distally.) - Labs CBC & Chem 7: 04/23/16 05:37 04/20/16 03:08 Labs: Abnormal lab results 04/23/16 04/24/16 04/24/16 Range/Units 21:08 05:20 06:17 PT 20.3 H (12.2-14.9) Sec. INR 1.74 H (0.87-1.13) POC Glucose 113 H 117 H (70-105) 04/24/16 Range/Units 11:32 PT (12.2-14.9) Sec. INR (0.87-1.13) POC Glucose 128 H (70-105)
[2016-04-24] MEDS: COUMADIN PO SCH ×2 (17:04→17:05)
--- NOTE | 2016-04-24 18:09 | Consultation ---
History of Present Illness - Reason for Consult Consult date: 04/24/16 Evaluate for Acute IRU - History of Present Illness 45 y.o. male with history of PVD who reports progressively worsening LLE claudication. Pt is followed by Vascular Surgery outpatient and has had prior interventions to relieve rest pain. Pt admitted for left femoral-femoral bypass on 04/19. Post-operatively, pt with acute onset of bilateral lower extremity weakness and numbness; subsequent difficulty ambulating. Neurology consulted; pending CT myleogram for further evaluation. On today, pt continue with bilateral LE weakness; remains non-ambulatory. Consult requested for post- acute placement recommendations. Past History Past Medical History: CAD (h/o [place]), diabetes (with peripheral neuropathy), hypertension, hyperlipidemia, PVD, stroke, other (sleep apnea) Past Surgical History: Other (fem-fem bypass on L) Social history: . denies: smoking (former), alcohol abuse Family history: CAD, diabetes, hypertension Medications and Allergies Allergies Allergy/AdvReac Type Severity Reaction Status Date / Time No Known Allergies Allergy Unverified 04/15/16 11:45 Home Medications Medication Instructions Recorded Confirmed Last Taken Type ALPRAZolam [Xanax TAB] 0.25 mg PO TID PRN 04/15/16 04/19/16 04/14/16 21:00 History Aspirin [Aspirin TAB] 325 mg PO ONCE 04/15/16 04/19/16 04/17/16 09:00 History AtorvaSTATin [Lipitor] 80 mg PO QDAY 04/15/16 04/19/16 04/18/16 09:00 History Clopidogrel Bisulfate [Plavix] 75 mg PO QDAY 04/15/16 04/19/16 04/18/16 09:00 History ISOSORBIDE MONOnitrate [Imdur ER] 60 mg PO QDAY 04/15/16 04/19/16 04/18/16 09: 00 History Metformin HCl [Glucophage] 1,000 mg PO BID 04/15/16 04/19/16 04/17/16 09:00 History Pentoxifylline [TRENtal] 400 mg PO TID 04/15/16 04/19/16 04/18/16 21:00 History Warfarin [Coumadin] 10 mg PO QDAY 04/15/16 04/19/16 04/14/16 09:00 History glipiZIDE [glipiZIDE ER] 5 mg PO QAM 04/15/16 04/19/16 04/15/16 09:00 History Active Meds: Active Medications Acetaminophen/Hydrocodone Bitart ([place] 5/325) 2 each PO Q6H PRN PRN Reason: Pain, Moderate (4-6) Last Admin: 04/24/16 08:37 Dose: 2 each Alprazolam (Xanax) 0.25 mg PO TID PRN PRN Reason: Anxiety Last Admin: 04/24/16 08:37 Dose: 0.25 mg Aspirin (Aspirin) 325 mg PO DAILY [facility] Last Admin: 04/24/16 10:56 Dose: 325 mg Atorvastatin Calcium (Lipitor) 80 mg PO QDAY [facility] Last Admin: 04/24/16 10:56 Dose: 80 mg Clopidogrel Bisulfate (Plavix) 75 mg PO QDAY [facility] Last Admin: 04/24/16 10:56 Dose: 75 mg Diphenhydramine HCl (Benadryl) 50 mg PO Q6H PRN PRN Reason: Itching Last Admin: 04/23/16 12:26 Dose: 50 mg Glipizide (Glucotrol Xl) 10 mg PO QAMDIAB [facility] Last Admin: 04/24/16 08:24 Dose: 10 mg Hydromorphone HCl (Dilaudid) 1 mg IV Q4H PRN PRN Reason: Pain , Severe (7-10) Last Admin: 04/24/16 13:08 Dose: 1 mg Heparin Sodium/Sodium Chloride (Heparin/ 0.45% Nacl-25,000 Unit/500 Ml) 25,000 unit in 500 mls @ 30 mls/hr IV TITR MICHAEL; 1,500 UNITS/HR PRN Reason: Protocol Last Admin: 04/24/16 13:09 Dose: 1,800 units/hr, 36 mls/hr Insulin Aspart (Novolog) 0 units SUB-Q ACHS [facility] PRN Reason: Protocol Last Admin: 04/24/16 17:00 Dose: Not Given Insulin Detemir (Levemir) 20 units SUB-Q QHS [facility] Last Admin: 04/23/16 21:39 Dose: 20 units Isosorbide Mononitrate (Imdur) 60 mg PO QDAY [facility] Last Admin: 04/24/16 10:57 Dose: 60 mg Metformin HCl (Glucophage) 1,000 mg PO BIDDIAB [facility] Last Admin: 04/24/16 17:04 Dose: 1,000 mg Metoprolol Tartrate (Lopressor) 12.5 mg PO BID [facility] Last Admin: 04/24/16 10:56 Dose: 12.5 mg Morphine Sulfate (Morphine) 2 mg IV Q4H PRN PRN Reason: Pain, Moderate (4-6) Last Admin: 04/19/16 15:37 Dose: 2 mg Morphine Sulfate (Morphine) 4 mg IV Q4H PRN PRN Reason: Pain , Severe (7-10) Last Admin: 04/23/16 12:26 Dose: 4 mg Naloxone HCl (Narcan 0.4 Mg/1 Ml) 0.1 mg IV Q2MIN PRN PRN Reason: Res Rate </= 8 or 02 SAT < 92% Ondansetron HCl (Zofran) 4 mg IV Q8H PRN PRN Reason: Nausea And Vomiting Pentoxifylline (Trental) 400 mg PO TID [facility] Last Admin: 04/24/16 13:08 Dose: 400 mg Pregabalin (Lyrica) 50 mg PO TID [facility] Last Admin: 04/24/16 13:08 Dose: 50 mg Warfarin Sodium (Coumadin) 10 mg PO DAILY@1700 [facility] Last Admin: 04/24/16 17:05 Dose: 10 mg Warfarin Sodium (Coumadin) 2 mg PO DAILY@1700 [facility] Last Admin: 04/24/16 17:04 Dose: 2 mg Review of Systems All systems: negative Ears, nose, mouth and throat: no headache Cardiovascular: no chest pain Respiratory: no shortness of breath Gastrointestinal: constipation Neurological: weakness (BLE), numbness (BLE) Exam - Constitutional Vitals: Vital Signs - 12hr 04/24/16 04/24/16 08:27 16:06 Temperature 98.0 F 97.1 F L Pulse Rate [ 96 H 87 Apical] Respiratory 20 20 Rate Blood Pressure 147/94 131/78 [Left Arm] O2 Sat by Pulse 97 Oximetry General appearance: no acute distress, obese - EENT Eyes: EOM intact ENT: hearing intact - Neck Neck: supple, normal ROM - Respiratory Respiratory effort: normal Respiratory: bilateral: CTA - Cardiovascular Rhythm: regular Heart Sounds: Present: S1 & S2 - Extremities Extremities: No edema Extremity abnormal: tenderness (left calf tenderness) - Gastrointestinal General gastrointestinal: Present: soft, non-tender, non-distended, normal bowel sounds - Integumentary Integumentary: Present: clear - Musculoskeletal Musculoskeletal: other (3/5 bilateral hip flexion, otherwise, 4/5 strength at BLE; decreased coordination of BLE noted with knee extension; BUE WNL) - Neurologic Neurologic: CNII-XII intact - Psychiatric Psychiatric: appropriate mood/affect, intact judgment & insight, memory intact, cooperative - Allied health notes Allied health notes reviewed: PT (currently non-ambulatory) FIMS assesment as documented by PT/OT/ST: Locomotion- walk/wheelchair Ambulation Distance 0 - Labs CBC & Chem 7: 04/23/16 05:37 04/20/16 03:08 Labs: Laboratory Results - last 72 hr 04/21/16 04/21/16 04/22/16 17:53 21:20 02:43 Hgb Hct Plt Count PT 15.5 H INR 1.24 H Heparin Anti-Xa Level 0.12 L POC Glucose 183 H 04/22/16 04/22/16 04/22/16 02:43 07:42 07:53 Hgb Hct Plt Count PT INR Heparin Anti-Xa Level 0.21 L 0.22 L POC Glucose 179 H 04/22/16 04/22/16 04/22/16 11:43 16:36 17:13 Hgb Hct Plt Count PT INR Heparin Anti-Xa Level 0.29 L POC Glucose 197 H 200 H 04/22/16 04/23/16 04/23/16 21:06 01:26 05:37 Hgb 12.5 Hct 37.6 Plt Count 257 PT INR Heparin Anti-Xa Level 0.35 POC Glucose 146 H 04/23/16 04/23/16 04/23/16 05:37 06:09 11:06 Hgb Hct Plt Count PT 15.8 H INR 1.27 H Heparin Anti-Xa Level POC Glucose 129 H 160 H 04/23/16 04/23/16 04/24/16 16:14 21:08 05:20 Hgb Hct Plt Count PT 20.3 H INR 1.74 H Heparin Anti-Xa Level 0.32 POC Glucose 95 113 H 04/24/16 04/24/16 04/24/16 06:17 11:32 16:27 Hgb Hct Plt Count PT INR Heparin Anti-Xa Level POC Glucose 117 H 128 H 95 Assessment and Plan Patient was assessed and evaluated for Acute Inpatient Rehab Unit. 45 y.o. morbidly obese male s/p left fem-fem bypass; now with acute BLE weakness and gait dysfunction. CT myelogram pending for tomorrow AM. Rehab options discussed in detail with pt; will likely be a good candidate for IRU admission once medically stable and work-up completed. Pt is motivated and able to participate in 3 hours of therapy, 5 days/week. Pt is currently participating with PT; OT evaluation ordered and is pending; however, will likely have functional deficits in self cares based on current weakness. Ongoing need for medical management for HTN, DM, heparin to coumadin bridging currently with subtherapeutic INR. Pt has good family support with plan to return home with after discharge from IRU. Pt has good rehab potential; anticipate IRU admission in 1-2 days. Will continue to follow. Thank you for consultation. - Patient Problems (1) Atherosclerosis of [place] arteries of extremity with rest pain Current Visit: Yes Status: Acute Qualifiers: Peripheral atherosclerosis location: P Laterality: L (2) Paresthesia of bilateral legs Current Visit: Yes Status: Acute (3) HTN (hypertension) Current Visit: Yes Status: Chronic Qualifiers: Hypertension type: essential hypertension Qualified Code(s): I10 - Essential (primary) hypertension (4) Uncontrolled diabetes mellitus Current Visit: Yes Status: Chronic Qualifiers: Diabetes mellitus type: type 2 Diabetes mellitus complication status: with circulatory complication Diabetes mellitus complication detail: with other circulatory complications Diabetic retinopathy severity: D Diabetes mellitus macular edema: D Diabetes mellitus detention insulin use: without barrel turner use Chronic kidney disease stage: C Qualified Code(s): E11.59 - Type 2 diabetes mellitus with other circulatory complications; E11.65 - Type 2 diabetes mellitus with hyperglycemia (5) Morbid obesity due to excess calories Current Visit: Yes Status: Acute
--- NOTE | 2016-04-24 18:56 | Progress Note ---
Assessment and Plan 1. Peripheral vascular disease - status post left femoral-femoral bypass ; management per vascular surgery; on vasodilators and anticoagulation ( heparin drip bridging to Coumadin) 2. Bilateral lower extremities weakness/numbness - post surgery; neurology also consulted; CT spine and brain MRI were ordered, but it seems MRI will be unable to be obtained due to his weight; PT evaluating 3. Diabetes - uncontrolled; increased long acting insulin dose; continue Accu- Cheks and SSI to assess insulin requirements 4. Prior CVA - on dual antiplatelet therapy and statin Subjective Date of service: 04/24/16 Principal diagnosis: left foot ischemia Interval history: Has not ambulated since surgery. Physical therapists by the bedside to ambulate the patient Objective - Constitutional Vitals: Vital Signs - 12hr 04/24/16 04/24/16 08:27 16:06 Temperature 98.0 F 97.1 F L Pulse Rate [ 96 H 87 Apical] Respiratory 20 20 Rate Blood Pressure 147/94 131/78 [Left Arm] O2 Sat by Pulse 97 Oximetry General appearance: Present: no acute distress, well-nourished - EENT Eyes: PERRL, EOM intact ENT: hearing intact, clear oral mucosa Ears: bilateral: normal - Neck Neck: supple, normal ROM - Respiratory Respiratory effort: normal Respiratory: bilateral: CTA - Cardiovascular Rhythm: regular Heart Sounds: Present: S1 & S2. Absent: gallop, rub Extremities: pulses intact, No edema, normal color, Full ROM - Gastrointestinal General gastrointestinal: Present: soft, non-tender, non-distended, normal bowel sounds - Genitourinary Male genitourinary: normal - Integumentary Integumentary: clear, warm, dry - Musculoskeletal Musculoskeletal: 1, strength equal bilaterally - Neurologic Neurologic: moves all extremities - Psychiatric Psychiatric: memory intact, appropriate mood/affect, intact judgment & insight - Labs CBC & Chem 7: 04/23/16 05:37 04/20/16 03:08 Labs: Abnormal lab results 04/23/16 04/24/16 04/24/16 Range/Units 21:08 05:20 06:17 PT 20.3 H (12.2-14.9) Sec. INR 1.74 H (0.87-1.13) POC Glucose 113 H 117 H (70-105) 04/24/16 Range/Units 11:32 PT (12.2-14.9) Sec. INR (0.87-1.13) POC Glucose 128 H (70-105)
[2016-04-24] MEDS: LEVEMIR SUB-Q SCH (22:02)
--- NOTE | 2016-04-24 22:04 | Progress Note ---
Assessment and Plan Patient awake, resting on O2 3 litres. O2 satuaration 97%. Patient is weak. No acute respiratory distress. - Patient Problems (1) Atherosclerosis of [place] arteries of extremity with rest pain Current Visit: Yes Status: Acute Qualifiers: Peripheral atherosclerosis location: P Laterality: L Plan to address problem: Management as per vascular surgery. Patient is on coumadin. and trental and I/V Heparin. (2) HTN (hypertension) Current Visit: Yes Status: Chronic Qualifiers: Hypertension type: essential hypertension Qualified Code(s): I10 - Essential (primary) hypertension Plan to address problem: Management as per primary care. (3) PAD (peripheral artery disease) Current Visit: Yes Status: Chronic Plan to address problem: Management as per vascular surgery. Patient is on coumadin and trental and I/V Heparin. (4) Uncontrolled diabetes mellitus Current Visit: Yes Status: Chronic Qualifiers: Diabetes mellitus type: type 2 Diabetes mellitus complication status: with circulatory complication Diabetes mellitus complication detail: with other circulatory complications Diabetic retinopathy severity: D Diabetes mellitus macular edema: D Diabetes mellitus chcf insulin use: without terminal computer operator use Chronic kidney disease stage: C Qualified Code(s): E11.59 - Type 2 diabetes mellitus with other circulatory complications; E11.65 - Type 2 diabetes mellitus with hyperglycemia Plan to address problem: Management as per primary care. Subjective Date of service: 04/24/16 Principal diagnosis: left foot ischemia Interval history: Patient alert,awake. No complaint of chest pain or shortness of breath.O2 satuaration 97% on room air. Cpmplaining leg pains. Objective Vital Signs - 12hr 04/24/16 04/24/16 04/24/16 16:06 20:07 21:51 Temperature 97.1 F L Pulse Rate [ 87 Apical] Respiratory 20 20 Rate Blood Pressure 131/78 [Left Arm] O2 Sat by Pulse 97 Oximetry Constitutional: alert, appears uncomfortable, other (Complaining pain in legs.) Eyes: non-icteric Neck: supple, no lymphadenopathy Ascultation: Bilateral: clear Cardiovascular: regular rate and rhythm Gastrointestinal: normoactive bowel sounds, soft, non-distended Integumentary: normal Extremities: other (Ischemia) Neurologic: normal mental status, non-focal exam, pupils equal and round Psychiatric: anxious CBC and BMP: 04/23/16 05:37 04/20/16 03:08 ABG, PT/INR, D-dimer: ABG POC ABG pH 7.447 (7.35-7.45) 04/21/16 16:43 POC ABG pCO2 31.8 (35-45) L 04/21/16 16:43 POC ABG pO2 79 (80-105) L 04/21/16 16:43 POC ABG HCO3 21.9 04/21/16 16:43 POC ABG Total CO2 23 04/21/16 16:43 POC ABG O2 Sat 96 04/21/16 16:43 PT/INR, D-dimer PT 20.3 Sec. (12.2-14.9) H 04/24/16 05:20 INR 1.74 (0.87-1.13) H 04/24/16 05:20 Abnormal lab findings: Abnormal Labs 04/16/16 04/16/16 04/16/16 12:30 12:30 12:30 WBC RBC 6.37 H Hgb 16.5 H Hct 48.8 H MCV 77 L MCH 26 L RDW 16.9 H [place] % (Auto) 8.4 H PT 16.6 H INR 1.35 H Heparin Anti-Xa Level POC ABG pCO2 POC ABG pO2 Sodium 136 L Chloride 96.3 L Carbon Dioxide Glucose 285 H POC Glucose Calcium Total Creatine Kinase CK-MB (CK-2) 04/19/16 04/19/16 04/19/16 07:03 14:01 15:02 WBC RBC Hgb Hct MCV MCH RDW [place] % (Auto) PT INR Heparin Anti-Xa Level POC ABG pCO2 POC ABG pO2 Sodium Chloride Carbon Dioxide Glucose POC Glucose 213 H 388 H 415 H Calcium Total Creatine Kinase CK-MB (CK-2) 04/19/16 04/19/16 04/19/16 15:10 15:10 16:55 WBC 16.8 H RBC 5.94 H Hgb Hct 46.3 H MCV 78 L MCH 25 L RDW 17.1 H [place] % (Auto) PT INR Heparin Anti-Xa Level 0.11 L POC ABG pCO2 POC ABG pO2 Sodium Chloride Carbon Dioxide Glucose POC Glucose 310 H Calcium Total Creatine Kinase CK-MB (CK-2) 04/19/16 04/19/16 04/20/16 17:55 22:55 03:08 WBC RBC Hgb Hct MCV MCH RDW [place] % (Auto) PT INR Heparin Anti-Xa Level POC ABG pCO2 POC ABG pO2 Sodium 136 L 136 L Chloride 97.6 L 95.7 L Carbon Dioxide 19 L Glucose 365 H 320 H POC Glucose 255 H Calcium 8.0 L 7.9 L Total Creatine Kinase CK-MB (CK-2) 04/20/16 04/20/16 04/20/16 03:08 03:08 11:51 WBC RBC Hgb Hct MCV MCH RDW [place] % (Auto) PT 15.3 H INR 1.22 H Heparin Anti-Xa Level 1.18 H POC ABG pCO2 POC ABG pO2 Sodium Chloride Carbon Dioxide Glucose POC Glucose 277 H Calcium Total Creatine Kinase CK-MB (CK-2) 04/20/16 04/20/16 04/20/16 13:10 15:27 21:55 WBC RBC Hgb Hct MCV MCH RDW [place] % (Auto) PT INR Heparin Anti-Xa Level 0.89 H POC ABG pCO2 POC ABG pO2 Sodium Chloride Carbon Dioxide Glucose POC Glucose 282 H 243 H Calcium Total Creatine Kinase CK-MB (CK-2) 04/21/16 04/21/16 04/21/16 06:37 12:18 14:43 WBC RBC Hgb Hct MCV MCH RDW [place] % (Auto) PT INR Heparin Anti-Xa Level POC ABG pCO2 POC ABG pO2 Sodium Chloride Carbon Dioxide Glucose POC Glucose 216 H 200 H Calcium Total Creatine Kinase 8731 H CK-MB (CK-2) 13.4 H 04/21/16 04/21/16 04/21/16 15:54 16:43 17:53 WBC RBC Hgb Hct MCV MCH RDW [place] % (Auto) PT INR Heparin Anti-Xa Level 0.12 L POC ABG pCO2 31.8 L POC ABG pO2 79 L Sodium Chloride Carbon Dioxide Glucose POC Glucose 189 H Calcium Total Creatine Kinase CK-MB (CK-2) 04/21/16 04/22/16 04/22/16 21:20 02:43 02:43 WBC RBC Hgb Hct MCV MCH RDW [place] % (Auto) PT 15.5 H INR 1.24 H Heparin Anti-Xa Level 0.21 L POC ABG pCO2 POC ABG pO2 Sodium Chloride Carbon Dioxide Glucose POC Glucose 183 H Calcium Total Creatine Kinase CK-MB (CK-2) 04/22/16 04/22/16 04/22/16 07:42 07:53 11:43 WBC RBC Hgb Hct MCV MCH RDW [place] % (Auto) PT INR Heparin Anti-Xa Level 0.22 L POC ABG pCO2 POC ABG pO2 Sodium Chloride Carbon Dioxide Glucose POC Glucose 179 H 197 H Calcium Total Creatine Kinase CK-MB (CK-2) 04/22/16 04/22/16 04/22/16 16:36 17:13 21:06 WBC RBC Hgb Hct MCV MCH RDW [place] % (Auto) PT INR Heparin Anti-Xa Level 0.29 L POC ABG pCO2 POC ABG pO2 Sodium Chloride Carbon Dioxide Glucose POC Glucose 200 H 146 H Calcium Total Creatine Kinase CK-MB (CK-2) 04/23/16 04/23/16 04/23/16 05:37 06:09 11:06 WBC RBC Hgb Hct MCV MCH RDW [place] % (Auto) PT 15.8 H INR 1.27 H Heparin Anti-Xa Level POC ABG pCO2 POC ABG pO2 Sodium Chloride Carbon Dioxide Glucose POC Glucose 129 H 160 H Calcium Total Creatine Kinase CK-MB (CK-2) 04/23/16 04/24/16 04/24/16 21:08 05:20 06:17 WBC RBC Hgb Hct MCV MCH RDW [place] % (Auto) PT 20.3 H INR 1.74 H Heparin Anti-Xa Level POC ABG pCO2 POC ABG pO2 Sodium Chloride Carbon Dioxide Glucose POC Glucose 113 H 117 H Calcium Total Creatine Kinase CK-MB (CK-2) 04/24/16 04/24/16 11:32 21:11 WBC RBC Hgb Hct MCV MCH RDW [place] % (Auto) PT INR Heparin Anti-Xa Level POC ABG pCO2 POC ABG pO2 Sodium Chloride Carbon Dioxide Glucose POC Glucose 128 H 118 H Calcium Total Creatine Kinase CK-MB (CK-2)
[2016-04-25] MEDS: DILAUDID IV PRN (03:00)
[2016-04-25] MEDS: XANAX PO PRN (03:00)
[2016-04-25 06:22] LABS: Hematocrit 38.6 % (35.5-45.6); Hemoglobin 13.1 gm/dl (11.8-15.2)
[2016-04-25 06:34] LABS: INR 2.13 (0.87-1.13)
[2016-04-25] MEDS: NOVOLOG SUB-Q SCH ×4 (07:30→22:00)
[2016-04-25] MEDS: PLAVIX PO SCH (09:40)
[2016-04-25] MEDS: TRENTAL PO SCH ×3 (09:40→20:56)
[2016-04-25] MEDS: ASPIRIN PO SCH (09:40)
[2016-04-25] MEDS: GLUCOPHAGE PO SCH ×2 (09:41→18:11)
[2016-04-25] MEDS: LYRICA PO SCH ×3 (09:41→20:56)
[2016-04-25] MEDS: IMDUR PO SCH (09:41)
[2016-04-25] MEDS: LOPRESSOR PO SCH ×2 (09:41→21:24)
[2016-04-25] MEDS: GLUCOTROL XL PO SCH (09:42)
[2016-04-25] MEDS: MORPHINE IV PRN ×3 (09:42→22:55)
--- NOTE | 2016-04-25 10:56 | Progress Note ---
Assessment and Plan Pt on heparin and coumadin. Inr up to 2.12. Continue heparin for now to overlap , but likely could stop soon. Unable to do the myelogram, due to pt's anticoagulation. Discussed with Neurology. Imaging should be completed (if possible prior to d/c). I'll discuss with case management about options to have pt sent out for open MRI. Pt very sensative to even light touch of the left calf. Does not appear to be compartment syndrome (soft, move foot and toes, pain focused in the calf area and not distally). Will check venous duplex. Doubt a DVT given post-operative anticoagulation. Possible spontaneous hematoma given Heparin and coumadin. D/c planning for acute rehab in progress. - Patient Problems (1) Atherosclerosis of [place] arteries of extremity with rest pain Current Visit: Yes Status: Acute Qualifiers: Peripheral atherosclerosis location: P Laterality: L (2) Paresthesia of bilateral legs Current Visit: Yes Status: Acute Subjective Date of service: 04/25/16 Principal diagnosis: left foot ischemia Interval history: Pt is awake and alert. C/o persistent discomfort of Left calf. He continues to c /o numbness to his lower ext. Objective - Constitutional Vitals: Vital Signs - 12hr 04/25/16 04/25/16 00:37 07:40 Temperature 98.1 F 97.9 F Pulse Rate [ 97 H 92 H Left Radial] Respiratory 20 18 Rate Blood Pressure 155/94 160/90 [Left Arm] O2 Sat by Pulse 97 96 Oximetry General appearance: Present: no acute distress - EENT Eyes: EOM intact ENT: hearing intact - Neck Neck: supple - Respiratory Respiratory effort: normal Extremities: no ischemia, normal temperature - Neurologic Neurologic: moves all extremities (weaker on the left lower compared to right.) , other (bilat lower ext numbness. ) - Psychiatric Psychiatric: intact judgment & insight, cooperative - Labs CBC & Chem 7: 04/25/16 04:30 04/20/16 03:08 Labs: Abnormal lab results 04/24/16 04/24/16 04/25/16 Range/Units 11:32 21:11 04:30 PT 23.9 H (12.2-14.9) Sec. INR 2.13 H (0.87-1.13) POC Glucose 128 H 118 H (70-105)
--- NOTE | 2016-04-25 11:28 | Progress Note ---
Subjective Date of service: 04/25/16 Principal diagnosis: left foot ischemia Interval history: Seen and examined at bedside; 24 hour events reviewed; nursing and respiratory care staff consulted; no adverse overnight events reported to me; Objective Vital Signs - 12hr 04/25/16 04/25/16 00:37 07:40 Temperature 98.1 F 97.9 F Pulse Rate [ 97 H 92 H Left Radial] Respiratory 20 18 Rate Blood Pressure 155/94 160/90 [Left Arm] O2 Sat by Pulse 97 96 Oximetry Constitutional: alert, appears uncomfortable, other (Complaining pain in legs.) Eyes: non-icteric Neck: supple, no lymphadenopathy Ascultation: Bilateral: clear Cardiovascular: regular rate and rhythm Gastrointestinal: normoactive bowel sounds, soft, non-distended Integumentary: normal Extremities: other (Ischemia) Neurologic: normal mental status, non-focal exam, pupils equal and round Psychiatric: anxious CBC and BMP: 04/25/16 04:30 04/20/16 03:08 ABG, PT/INR, D-dimer: ABG POC ABG pH 7.447 (7.35-7.45) 04/21/16 16:43 POC ABG pCO2 31.8 (35-45) L 04/21/16 16:43 POC ABG pO2 79 (80-105) L 04/21/16 16:43 POC ABG HCO3 21.9 04/21/16 16:43 POC ABG Total CO2 23 04/21/16 16:43 POC ABG O2 Sat 96 04/21/16 16:43 PT/INR, D-dimer PT 23.9 Sec. (12.2-14.9) H 04/25/16 04:30 INR 2.13 (0.87-1.13) H 04/25/16 04:30 Abnormal lab findings: Abnormal Labs 04/16/16 04/16/16 04/16/16 12:30 12:30 12:30 WBC RBC 6.37 H Hgb 16.5 H Hct 48.8 H MCV 77 L MCH 26 L RDW 16.9 H [place] % (Auto) 8.4 H PT 16.6 H INR 1.35 H Heparin Anti-Xa Level POC ABG pCO2 POC ABG pO2 Sodium 136 L Chloride 96.3 L Carbon Dioxide Glucose 285 H POC Glucose Calcium Total Creatine Kinase CK-MB (CK-2) 03/10/17 03/10/17 03/10/17 07:03 14:01 15:02 WBC RBC Hgb Hct MCV MCH RDW [place] % (Auto) PT INR Heparin Anti-Xa Level POC ABG pCO2 POC ABG pO2 Sodium Chloride Carbon Dioxide Glucose POC Glucose 213 H 388 H 415 H Calcium Total Creatine Kinase CK-MB (CK-2) 04/19/16 04/19/16 04/19/16 15:10 15:10 16:55 WBC 16.8 H RBC 5.94 H Hgb Hct 46.3 H MCV 78 L MCH 25 L RDW 17.1 H [place] % (Auto) PT INR Heparin Anti-Xa Level 0.11 L POC ABG pCO2 POC ABG pO2 Sodium Chloride Carbon Dioxide Glucose POC Glucose 310 H Calcium Total Creatine Kinase CK-MB (CK-2) 04/19/16 04/19/16 04/20/16 17:55 22:55 03:08 WBC RBC Hgb Hct MCV MCH RDW [place] % (Auto) PT INR Heparin Anti-Xa Level POC ABG pCO2 POC ABG pO2 Sodium 136 L 136 L Chloride 97.6 L 95.7 L Carbon Dioxide 19 L Glucose 365 H 320 H POC Glucose 255 H Calcium 8.0 L 7.9 L Total Creatine Kinase CK-MB (CK-2) 04/20/16 04/20/16 04/20/16 03:08 03:08 11:51 WBC RBC Hgb Hct MCV MCH RDW [place] % (Auto) PT 15.3 H INR 1.22 H Heparin Anti-Xa Level 1.18 H POC ABG pCO2 POC ABG pO2 Sodium Chloride Carbon Dioxide Glucose POC Glucose 277 H Calcium Total Creatine Kinase CK-MB (CK-2) 04/20/16 04/20/16 04/20/16 13:10 15:27 21:55 WBC RBC Hgb Hct MCV MCH RDW [place] % (Auto) PT INR Heparin Anti-Xa Level 0.89 H POC ABG pCO2 POC ABG pO2 Sodium Chloride Carbon Dioxide Glucose POC Glucose 282 H 243 H Calcium Total Creatine Kinase CK-MB (CK-2) 04/21/16 04/21/16 04/21/16 06:37 12:18 14:43 WBC RBC Hgb Hct MCV MCH RDW [place] % (Auto) PT INR Heparin Anti-Xa Level POC ABG pCO2 POC ABG pO2 Sodium Chloride Carbon Dioxide Glucose POC Glucose 216 H 200 H Calcium Total Creatine Kinase 8731 H CK-MB (CK-2) 13.4 H 04/21/16 04/21/16 04/21/16 15:54 16:43 17:53 WBC RBC Hgb Hct MCV MCH RDW [place] % (Auto) PT INR Heparin Anti-Xa Level 0.12 L POC ABG pCO2 31.8 L POC ABG pO2 79 L Sodium Chloride Carbon Dioxide Glucose POC Glucose 189 H Calcium Total Creatine Kinase CK-MB (CK-2) 04/21/16 04/22/16 04/22/16 21:20 02:43 02:43 WBC RBC Hgb Hct MCV MCH RDW [place] % (Auto) PT 15.5 H INR 1.24 H Heparin Anti-Xa Level 0.21 L POC ABG pCO2 POC ABG pO2 Sodium Chloride Carbon Dioxide Glucose POC Glucose 183 H Calcium Total Creatine Kinase CK-MB (CK-2) 04/22/16 04/22/16 04/22/16 07:42 07:53 11:43 WBC RBC Hgb Hct MCV MCH RDW [place] % (Auto) PT INR Heparin Anti-Xa Level 0.22 L POC ABG pCO2 POC ABG pO2 Sodium Chloride Carbon Dioxide Glucose POC Glucose 179 H 197 H Calcium Total Creatine Kinase CK-MB (CK-2) 04/22/16 04/22/16 04/22/16 16:36 17:13 21:06 WBC RBC Hgb Hct MCV MCH RDW [place] % (Auto) PT INR Heparin Anti-Xa Level 0.29 L POC ABG pCO2 POC ABG pO2 Sodium Chloride Carbon Dioxide Glucose POC Glucose 200 H 146 H Calcium Total Creatine Kinase CK-MB (CK-2) 04/23/16 04/23/16 04/23/16 05:37 06:09 11:06 WBC RBC Hgb Hct MCV MCH RDW [place] % (Auto) PT 15.8 H INR 1.27 H Heparin Anti-Xa Level POC ABG pCO2 POC ABG pO2 Sodium Chloride Carbon Dioxide Glucose POC Glucose 129 H 160 H Calcium Total Creatine Kinase CK-MB (CK-2) 04/23/16 04/24/16 04/24/16 21:08 05:20 06:17 WBC RBC Hgb Hct MCV MCH RDW [place] % (Auto) PT 20.3 H INR 1.74 H Heparin Anti-Xa Level POC ABG pCO2 POC ABG pO2 Sodium Chloride Carbon Dioxide Glucose POC Glucose 113 H 117 H Calcium Total Creatine Kinase CK-MB (CK-2) 04/24/16 04/24/16 04/25/16 11:32 21:11 04:30 WBC RBC Hgb Hct MCV MCH RDW [place] % (Auto) PT 23.9 H INR 2.13 H Heparin Anti-Xa Level POC ABG pCO2 POC ABG pO2 Sodium Chloride Carbon Dioxide Glucose POC Glucose 128 H 118 H Calcium Total Creatine Kinase CK-MB (CK-2)
--- NOTE | 2016-04-25 11:37 | Progress Note ---
Assessment and Plan 45 YO M Hx DM2/PVD and stroke on ASA 325/Plavix/Trental/Coumadin w/o residual deficit s/p L fem-fem bypass completed 04/19 c/b reported new onset b/l LE distal > proximal weakness and numbness. Neuro exam w/ evident weakness in knee flexion/dorsiflexion/EHL greater than knee extension/plantar flexion, absent patellar/Achilles DTRs but preserved UE DTRs and decreased sensation to all modalities inferior to the knees. I suspect exacerbated baseline peripheral neuropathy in setting of ? rhabdo CK 8731 on 04/21 but will r/o BRAIDER SETTER process. There are no clear myelopathic signs. Plan: 1. Neuro checks 2. urgent MRI B/C/T/L spine +/- Alberto to be obtained as open MRI as pt's habitus precludes closed MRI. 3. CT Myelogram unable to be performed d/t anticoagulation 4. Check repeat CK and Vasc Surgery to order LLE U/S 5. PT/OT 6. Pls notify neurologist fire prevention research engineer when MRI completed for further recs. I am away until Thursday May 05, 2016 8 AM Subjective Date of service: 04/25/16 Principal diagnosis: left foot ischemia Interval history: LE weakness persists. pending MRI spine open imaging Objective - Vital Sign Vital Signs - 12hr 04/25/16 04/25/16 00:37 07:40 Temperature 98.1 F 97.9 F Pulse Rate [ 97 H 92 H Left Radial] Respiratory 20 18 Rate Blood Pressure 155/94 160/90 [Left Arm] O2 Sat by Pulse 97 96 Oximetry - General Apperance Constitutional: comfortable - EENT EENT: ATNC, PERRL, mucous membranes moist, hearing intact, vision intact - Respiratory Respiratory: chest non-tender, normal breath sounds, no respiratory distress - Cardiovascular Cardiovascular: regular rate Extremities: no clubbing, cyanosis, no inflammation, other (LLE edema, +Devin's , L calf swelling and ischemia) - Gastrointestinal Gastrointestinal: normoactive bowel sounds, soft, non-distended - Integumentary Integumentary: erythema, cellulitis (LLE) - Neurologic Cranial nerve examination: PERRL, EOMI, VFF, V1/V2/V3 grossly intact, face symmetric, tongue midline, intact, intact shoulder shrug, intact cough reflex, Intact Vestibulo-ocular r, intact corneal reflex, normal palatal elevation Speech examination: intact Motor examination - right side: 4/5: hip flexors, knee extensors, dorsiflexion, toe extension (EHL), plantarflexion, 5/5: biceps, triceps, wrist flexion, wrist extension, geopolitics teacher Motor examination - left side: 4/5: hip flexors, knee extensors, dorsiflexion, toe extension (EHL), plantarflexion, 5/5: biceps, triceps, wrist flexion, wrist extension, geopolitics teacher Detailed sensory examination: light touch (decr distally in LE), temperature ( decr distally in LE), vibration (decr disally in LE) Reflex and gait examination: intact Reflexes: 0: ankle, 1+: knee, 2+: bicep, tricep - Musculoskeletal Musculoskeletal: no fluid collection, no pain, normal range of motion - Psychiatric Psychiatric: mood/affect appropriate, cooperative - Laboratory Findings CBC and BMP: 04/25/16 04:30 04/20/16 03:08 Abnormal Lab Findings: Abnormal Labs 04/16/16 04/16/16 04/16/16 12:30 12:30 12:30 WBC RBC 6.37 H Hgb 16.5 H Hct 48.8 H MCV 77 L MCH 26 L RDW 16.9 H [place] % (Auto) 8.4 H PT 16.6 H INR 1.35 H Heparin Anti-Xa Level POC ABG pCO2 POC ABG pO2 Sodium 136 L Chloride 96.3 L Carbon Dioxide Glucose 285 H POC Glucose Calcium Total Creatine Kinase CK-MB (CK-2) 04/19/16 04/19/16 04/19/16 07:03 14:01 15:02 WBC RBC Hgb Hct MCV MCH RDW [place] % (Auto) PT INR Heparin Anti-Xa Level POC ABG pCO2 POC ABG pO2 Sodium Chloride Carbon Dioxide Glucose POC Glucose 213 H 388 H 415 H Calcium Total Creatine Kinase CK-MB (CK-2) 04/19/16 04/19/16 04/19/16 15:10 15:10 16:55 WBC 16.8 H RBC 5.94 H Hgb Hct 46.3 H MCV 78 L MCH 25 L RDW 17.1 H [place] % (Auto) PT INR Heparin Anti-Xa Level 0.11 L POC ABG pCO2 POC ABG pO2 Sodium Chloride Carbon Dioxide Glucose POC Glucose 310 H Calcium Total Creatine Kinase CK-MB (CK-2) 04/19/16 04/19/16 04/20/16 17:55 22:55 03:08 WBC RBC Hgb Hct MCV MCH RDW [place] % (Auto) PT INR Heparin Anti-Xa Level POC ABG pCO2 POC ABG pO2 Sodium 136 L 136 L Chloride 97.6 L 95.7 L Carbon Dioxide 19 L Glucose 365 H 320 H POC Glucose 255 H Calcium 8.0 L 7.9 L Total Creatine Kinase CK-MB (CK-2) 04/20/16 04/20/16 04/20/16 03:08 03:08 11:51 WBC RBC Hgb Hct MCV MCH RDW [place] % (Auto) PT 15.3 H INR 1.22 H Heparin Anti-Xa Level 1.18 H POC ABG pCO2 POC ABG pO2 Sodium Chloride Carbon Dioxide Glucose POC Glucose 277 H Calcium Total Creatine Kinase CK-MB (CK-2) 04/20/16 04/20/16 04/20/16 13:10 15:27 21:55 WBC RBC Hgb Hct MCV MCH RDW [place] % (Auto) PT INR Heparin Anti-Xa Level 0.89 H POC ABG pCO2 POC ABG pO2 Sodium Chloride Carbon Dioxide Glucose POC Glucose 282 H 243 H Calcium Total Creatine Kinase CK-MB (CK-2) 04/21/16 04/21/16 04/21/16 06:37 12:18 14:43 WBC RBC Hgb Hct MCV MCH RDW [place] % (Auto) PT INR Heparin Anti-Xa Level POC ABG pCO2 POC ABG pO2 Sodium Chloride Carbon Dioxide Glucose POC Glucose 216 H 200 H Calcium Total Creatine Kinase 8731 H CK-MB (CK-2) 13.4 H 04/21/16 04/21/16 04/21/16 15:54 16:43 17:53 WBC RBC Hgb Hct MCV MCH RDW [place] % (Auto) PT INR Heparin Anti-Xa Level 0.12 L POC ABG pCO2 31.8 L POC ABG pO2 79 L Sodium Chloride Carbon Dioxide Glucose POC Glucose 189 H Calcium Total Creatine Kinase CK-MB (CK-2) 04/21/16 04/22/16 04/22/16 21:20 02:43 02:43 WBC RBC Hgb Hct MCV MCH RDW [place] % (Auto) PT 15.5 H INR 1.24 H Heparin Anti-Xa Level 0.21 L POC ABG pCO2 POC ABG pO2 Sodium Chloride Carbon Dioxide Glucose POC Glucose 183 H Calcium Total Creatine Kinase CK-MB (CK-2) 04/22/16 04/22/16 04/22/16 07:42 07:53 11:43 WBC RBC Hgb Hct MCV MCH RDW [place] % (Auto) PT INR Heparin Anti-Xa Level 0.22 L POC ABG pCO2 POC ABG pO2 Sodium Chloride Carbon Dioxide Glucose POC Glucose 179 H 197 H Calcium Total Creatine Kinase CK-MB (CK-2) 04/22/16 04/22/16 04/22/16 16:36 17:13 21:06 WBC RBC Hgb Hct MCV MCH RDW [place] % (Auto) PT INR Heparin Anti-Xa Level 0.29 L POC ABG pCO2 POC ABG pO2 Sodium Chloride Carbon Dioxide Glucose POC Glucose 200 H 146 H Calcium Total Creatine Kinase CK-MB (CK-2) 04/23/16 04/23/16 04/23/16 05:37 06:09 11:06 WBC RBC Hgb Hct MCV MCH RDW [place] % (Auto) PT 15.8 H INR 1.27 H Heparin Anti-Xa Level POC ABG pCO2 POC ABG pO2 Sodium Chloride Carbon Dioxide Glucose POC Glucose 129 H 160 H Calcium Total Creatine Kinase CK-MB (CK-2) 04/23/16 04/24/16 04/24/16 21:08 05:20 06:17 WBC RBC Hgb Hct MCV MCH RDW [place] % (Auto) PT 20.3 H INR 1.74 H Heparin Anti-Xa Level POC ABG pCO2 POC ABG pO2 Sodium Chloride Carbon Dioxide Glucose POC Glucose 113 H 117 H Calcium Total Creatine Kinase CK-MB (CK-2) 04/24/16 04/24/16 04/25/16 11:32 21:11 04:30 WBC RBC Hgb Hct MCV MCH RDW [place] % (Auto) PT 23.9 H INR 2.13 H Heparin Anti-Xa Level POC ABG pCO2 POC ABG pO2 Sodium Chloride Carbon Dioxide Glucose POC Glucose 128 H 118 H Calcium Total Creatine Kinase CK-MB (CK-2)
[2016-04-25] MEDS: HEPARIN/ 0.45% NACL-25,000 UNIT/500 ML 25,000 UNIT/500 ML BAG IV SCH (17:57)
[2016-04-25] MEDS: COUMADIN PO SCH ×2 (18:10)
--- NOTE | 2016-04-25 19:48 | Progress Note ---
Assessment and Plan - Patient Problems (1) Uncontrolled diabetes mellitus Current Visit: Yes Status: Chronic Qualifiers: Diabetes mellitus type: type 2 Diabetes mellitus complication status: with circulatory complication Diabetes mellitus complication detail: with other circulatory complications Diabetic retinopathy severity: D Diabetes mellitus macular edema: D Diabetes mellitus intermediate frame tender insulin use: without intermediate frame tender use Chronic kidney disease stage: C Qualified Code(s): E11.59 - Type 2 diabetes mellitus with other circulatory complications; E11.65 - Type 2 diabetes mellitus with hyperglycemia Plan to address problem: Patient started on Levemir 20 units SQ HS.Will follow patient and adjust dosage. BG levels doing well. (2) HLD (hyperlipidemia) Current Visit: Yes Status: Chronic Qualifiers: Hyperlipidemia type: mixed hyperlipidemia Qualified Code(s): E78.2 - Mixed hyperlipidemia Plan to address problem: on statins (3) PAD (peripheral artery disease) Current Visit: Yes Status: Chronic Plan to address problem: S/p procedure (4) Anticoagulant long-term use Current Visit: Yes Status: Chronic Plan to address problem: On coumadin Subtherapeutic Subjective Date of service: 04/25/16 Principal diagnosis: left foot ischemia Interval history: Doing well with BG levels .Unable to walk. Objective - Constitutional Vitals: Vital Signs - 12hr 04/25/16 16:40 Temperature 98 F Pulse Rate [ 96 H Left Radial] Respiratory 18 Rate Blood Pressure 120/85 [Left Arm] O2 Sat by Pulse 97 Oximetry General appearance: Present: no acute distress, well-nourished - EENT Eyes: PERRL, EOM intact ENT: hearing intact, clear oral mucosa Ears: bilateral: normal - Neck Neck: supple, normal ROM - Respiratory Respiratory effort: normal Respiratory: bilateral: CTA - Breasts Breasts: normal - Cardiovascular Rhythm: regular Heart Sounds: Present: S1 & S2. Absent: gallop, rub Extremities: pulses intact, No edema, normal color, Full ROM - Gastrointestinal General gastrointestinal: Present: soft, non-tender, non-distended, normal bowel sounds - Genitourinary Male genitourinary: normal - Integumentary Integumentary: clear, warm, dry - Musculoskeletal Musculoskeletal: 1, strength equal bilaterally - Neurologic Neurologic: moves all extremities - Psychiatric Psychiatric: memory intact, appropriate mood/affect, intact judgment & insight - Labs CBC & Chem 7: 04/25/16 04:30 04/20/16 03:08 Labs: Abnormal lab results 04/24/16 04/25/16 04/25/16 Range/Units 21:11 04:30 13:14 PT 23.9 H (12.2-14.9) Sec. INR 2.13 H (0.87-1.13) POC Glucose 118 H (70-105) Total Creatine Kinase 1088 H (55-170) units/L
[2016-04-25] MEDS: LEVEMIR SUB-Q SCH (23:52)
[2016-04-26] MEDS: BENADRYL PO PRN
[2016-04-26] MEDS: XANAX PO PRN (00:01)
[2016-04-26] MEDS: MORPHINE IV PRN ×3 (04:12→17:41)
[2016-04-26 04:50] LABS: INR 2.39 (0.87-1.13)
[2016-04-26] MEDS: NOVOLOG SUB-Q SCH ×4 (07:30→23:25)
[2016-04-26] MEDS: HEPARIN/ 0.45% NACL-25,000 UNIT/500 ML 25,000 UNIT/500 ML BAG IV SCH (07:36)
[2016-04-26] MEDS: LYRICA PO SCH ×3 (09:17→23:18)
[2016-04-26] MEDS: GLUCOTROL XL PO SCH (09:18)
[2016-04-26] MEDS: GLUCOPHAGE PO SCH ×2 (09:18→17:44)
[2016-04-26] MEDS: TRENTAL PO SCH ×3 (09:18→23:18)
[2016-04-26] MEDS: IMDUR PO SCH (09:18)
[2016-04-26] MEDS ORDERED: ATIVAN IV ONE (11:32)
[2016-04-26] MEDS: PLAVIX PO SCH (11:44)
[2016-04-26] MEDS: ASPIRIN PO SCH (11:44)
[2016-04-26] MEDS: LOPRESSOR PO SCH (11:45)
--- NOTE | 2016-04-26 12:51 | Progress Note ---
Subjective Date of service: 04/26/16 Principal diagnosis: left foot ischemia Interval history: Seen and examined at bedside; 24 hour events reviewed; nursing and respiratory care staff consulted; no adverse overnight events reported to me; Objective Vital Signs - 12hr 04/26/16 09:14 O2 Sat by Pulse 96 Oximetry Constitutional: alert, appears uncomfortable Eyes: non-icteric ENT: oropharynx moist Neck: supple, no lymphadenopathy Effort: normal Ascultation: Bilateral: clear, diminished breath sounds Cardiovascular: regular rate and rhythm Gastrointestinal: normoactive bowel sounds, soft, non-tender, non-distended Integumentary: other (PVD cghanges with sparse haior and pigmentation) Extremities: no cyanosis, edema (trace) Neurologic: normal mental status, non-focal exam, pupils equal and round, motor strength normal and Psychiatric: mood appropriate, affect normal CBC and BMP: 04/25/16 04:30 04/20/16 03:08 ABG, PT/INR, D-dimer: ABG POC ABG pH 7.447 (7.35-7.45) 04/21/16 16:43 POC ABG pCO2 31.8 (35-45) L 04/21/16 16:43 POC ABG pO2 79 (80-105) L 04/21/16 16:43 POC ABG HCO3 21.9 04/21/16 16:43 POC ABG Total CO2 23 04/21/16 16:43 POC ABG O2 Sat 96 04/21/16 16:43 PT/INR, D-dimer PT 26.2 Sec. (12.2-14.9) H 04/26/16 03:43 INR 2.39 (0.87-1.13) H 04/26/16 03:43 Abnormal lab findings: Abnormal Labs 04/16/16 04/16/16 04/16/16 12:30 12:30 12:30 WBC RBC 6.37 H Hgb 16.5 H Hct 48.8 H MCV 77 L MCH 26 L RDW 16.9 H [place] % (Auto) 8.4 H PT 16.6 H INR 1.35 H Heparin Anti-Xa Level POC ABG pCO2 POC ABG pO2 Sodium 136 L Chloride 96.3 L Carbon Dioxide Glucose 285 H POC Glucose Calcium Total Creatine Kinase CK-MB (CK-2) 04/19/16 04/19/1617 07:03 14:01 15:02 WBC RBC Hgb Hct MCV MCH RDW [place] % (Auto) PT INR Heparin Anti-Xa Level POC ABG pCO2 POC ABG pO2 Sodium Chloride Carbon Dioxide Glucose POC Glucose 213 H 388 H 415 H Calcium Total Creatine Kinase CK-MB (CK-2) 04/19/16 04/19/16 04/19/16 15:10 15:10 16:55 WBC 16.8 H RBC 5.94 H Hgb Hct 46.3 H MCV 78 L MCH 25 L RDW 17.1 H [place] % (Auto) PT INR Heparin Anti-Xa Level 0.11 L POC ABG pCO2 POC ABG pO2 Sodium Chloride Carbon Dioxide Glucose POC Glucose 310 H Calcium Total Creatine Kinase CK-MB (CK-2) 04/19/16 04/19/16 04/20/16 17:55 22:55 03:08 WBC RBC Hgb Hct MCV MCH RDW [place] % (Auto) PT INR Heparin Anti-Xa Level POC ABG pCO2 POC ABG pO2 Sodium 136 L 136 L Chloride 97.6 L 95.7 L Carbon Dioxide 19 L Glucose 365 H 320 H POC Glucose 255 H Calcium 8.0 L 7.9 L Total Creatine Kinase CK-MB (CK-2) 04/20/16 04/20/16 04/20/16 03:08 03:08 11:51 WBC RBC Hgb Hct MCV MCH RDW [place] % (Auto) PT 15.3 H INR 1.22 H Heparin Anti-Xa Level 1.18 H POC ABG pCO2 POC ABG pO2 Sodium Chloride Carbon Dioxide Glucose POC Glucose 277 H Calcium Total Creatine Kinase CK-MB (CK-2) 04/20/16 04/20/16 04/20/16 13:10 15:27 21:55 WBC RBC Hgb Hct MCV MCH RDW [place] % (Auto) PT INR Heparin Anti-Xa Level 0.89 H POC ABG pCO2 POC ABG pO2 Sodium Chloride Carbon Dioxide Glucose POC Glucose 282 H 243 H Calcium Total Creatine Kinase CK-MB (CK-2) 04/21/16 04/21/16 04/21/16 06:37 12:18 14:43 WBC RBC Hgb Hct MCV MCH RDW [place] % (Auto) PT INR Heparin Anti-Xa Level POC ABG pCO2 POC ABG pO2 Sodium Chloride Carbon Dioxide Glucose POC Glucose 216 H 200 H Calcium Total Creatine Kinase 8731 H CK-MB (CK-2) 13.4 H 04/21/16 04/21/16 04/21/16 15:54 16:43 17:53 WBC RBC Hgb Hct MCV MCH RDW [place] % (Auto) PT INR Heparin Anti-Xa Level 0.12 L POC ABG pCO2 31.8 L POC ABG pO2 79 L Sodium Chloride Carbon Dioxide Glucose POC Glucose 189 H Calcium Total Creatine Kinase CK-MB (CK-2) 04/21/16 04/22/16 04/22/16 21:20 02:43 02:43 WBC RBC Hgb Hct MCV MCH RDW [place] % (Auto) PT 15.5 H INR 1.24 H Heparin Anti-Xa Level 0.21 L POC ABG pCO2 POC ABG pO2 Sodium Chloride Carbon Dioxide Glucose POC Glucose 183 H Calcium Total Creatine Kinase CK-MB (CK-2) 04/22/16 04/22/16 04/22/16 07:42 07:53 11:43 WBC RBC Hgb Hct MCV MCH RDW [place] % (Auto) PT INR Heparin Anti-Xa Level 0.22 L POC ABG pCO2 POC ABG pO2 Sodium Chloride Carbon Dioxide Glucose POC Glucose 179 H 197 H Calcium Total Creatine Kinase CK-MB (CK-2) 04/22/16 04/22/16 04/22/16 16:36 17:13 21:06 WBC RBC Hgb Hct MCV MCH RDW [place] % (Auto) PT INR Heparin Anti-Xa Level 0.29 L POC ABG pCO2 POC ABG pO2 Sodium Chloride Carbon Dioxide Glucose POC Glucose 200 H 146 H Calcium Total Creatine Kinase CK-MB (CK-2) 04/23/16 04/23/16 04/23/16 05:37 06:09 11:06 WBC RBC Hgb Hct MCV MCH RDW [place] % (Auto) PT 15.8 H INR 1.27 H Heparin Anti-Xa Level POC ABG pCO2 POC ABG pO2 Sodium Chloride Carbon Dioxide Glucose POC Glucose 129 H 160 H Calcium Total Creatine Kinase CK-MB (CK-2) 04/23/16 04/24/16 04/24/16 21:08 05:20 06:17 WBC RBC Hgb Hct MCV MCH RDW [place] % (Auto) PT 20.3 H INR 1.74 H Heparin Anti-Xa Level POC ABG pCO2 POC ABG pO2 Sodium Chloride Carbon Dioxide Glucose POC Glucose 113 H 117 H Calcium Total Creatine Kinase CK-MB (CK-2) 04/24/16 04/24/16 04/25/16 11:32 21:11 04:30 WBC RBC Hgb Hct MCV MCH RDW [place] % (Auto) PT 23.9 H INR 2.13 H Heparin Anti-Xa Level POC ABG pCO2 POC ABG pO2 Sodium Chloride Carbon Dioxide Glucose POC Glucose 128 H 118 H Calcium Total Creatine Kinase CK-MB (CK-2) 04/25/16 04/26/16 13:14 03:43 WBC RBC Hgb Hct MCV MCH RDW [place] % (Auto) PT 26.2 H INR 2.39 H Heparin Anti-Xa Level POC ABG pCO2 POC ABG pO2 Sodium Chloride Carbon Dioxide Glucose POC Glucose Calcium Total Creatine Kinase 1088 H CK-MB (CK-2)
--- NOTE | 2016-04-26 13:16 | Progress Note ---
Assessment and Plan Assessment and plan: --Type 2 diabetes mellitus moderate control Accu-Chek sliding scale coverage and ADA diet, Lantus insulin, an oral hypoglycemics Closely monitor blood sugars and adjust dose -- Peripheral vascular disease - status post left femoropopliteal bypass 04/19; management per vascular surgery; on vasodilators and anticoagulation -- Bilateral lower extremities weakness/numbness Neurology evaluation and recommendations noted and appreciated, recommend multiple MRIs , both in-house as well as open MRIs Case management assisting with scheduling open MRIs --History of CVA - on dual antiplatelet therapy and statin --Rhabdomyolysis With preserved renal function, gentle IV hydration Closely monitor CK levels --DVT prophylaxis , as she is already on anticoagulation Consults and recommendations noted and appreciated Patient's condition treatment plan discussed in detail with the patient and his nurse Was closely monitor the patient adjust the management as needed History Interval history: Patient seen and evaluated medical records reviewed Patient continues to have lower extremity weakness Patient was advised multiple MRIs by neurology, being scheduled in-house as well as open MRI outside with the assistance of case management Alert awake oriented 3 not in acute distress vital signs reviewed Hospitalist Physical - Constitutional Vitals: Temp Pulse Resp BP Pulse Ox 97.2 F L 108 H 18 118/78 96 04/25/16 22:55 04/26/16 00:00 04/26/16 00:00 04/25/16 22:55 04/26/16 09:14 General appearance: Present: no acute distress, well-nourished - EENT Eyes: Present: PERRL, EOM intact - Neck Neck: Present: supple, normal ROM - Respiratory Respiratory effort: normal Respiratory: negative: rales, rhonchi, wheezing - Cardiovascular Rhythm: regular Heart Sounds: Present: S1 & S2 - Extremities Extremities: abnormal (status post femoropopliteal bypass) - Abdominal General gastrointestinal: soft, non-tender, non-distended, normal bowel sounds - Psychiatric Psychiatric: appropriate mood/affect, cooperative - Neurologic Neurologic: other (lower extremity weakness) Results - Labs CBC & Chem 7: 04/27/16 04:10 04/26/16 13:42 Labs: Laboratory Last Values WBC 16.8 K/mm3 (4.5-11.0) H 04/19/16 15:10 RBC 5.94 M/mm3 (3.65-5.03) H 04/19/16 15:10 Hgb 13.1 gm/dl (11.8-15.2) 04/25/16 04:30 Hct 38.6 % (35.5-45.6) 04/25/16 04:30 MCV 78 fl (84-94) L 04/19/16 15:10 MCH 25 pg (28-32) L 04/19/16 15:10 MCHC 33 % (32-34) 04/19/16 15:10 RDW 17.1 % (13.2-15.2) H 04/19/16 15:10 Plt Count 309 K/mm3 (140-440) 04/25/16 04:30 Lymph % (Auto) 26.9 % (13.4-35.0) 04/16/16 12:30 [place] % (Auto) 8.4 % (0.0-7.3) H 04/16/16 12:30 Eos % (Auto) 1.3 % (0.0-4.3) 04/16/16 12:30 Baso % (Auto) 0.4 % (0.0-1.8) 04/16/16 12:30 Lymph # 2.3 K/mm3 (1.2-5.4) 04/16/16 12:30 [place] # 0.7 K/mm3 (0.0-0.8) 04/16/16 12:30 Eos # 0.1 K/mm3 (0.0-0.4) 04/16/16 12:30 Baso # 0.0 K/mm3 (0.0-0.1) 04/16/16 12:30 Seg Neutrophils % 63.0 % (40.0-70.0) 04/16/16 12:30 Seg Neutrophils # 5.4 K/mm3 (1.8-7.7) 04/16/16 12:30 PT 26.2 Sec. (12.2-14.9) H 04/26/16 03:43 INR 2.39 (0.87-1.13) H 04/26/16 03:43 APTT 24.7 Sec. (24.2-36.6) 04/19/16 15:10 Heparin Anti-Xa Level 0.44 U.I./ml (0.3-0.7) 04/26/16 03:43 POC ABG pH 7.447 (7.35-7.45) 04/21/16 16:43 POC ABG pCO2 31.8 (35-45) L 04/21/16 16:43 POC ABG pO2 79 (80-105) L 04/21/16 16:43 POC ABG HCO3 21.9 04/21/16 16:43 POC ABG Total CO2 23 04/21/16 16:43 POC ABG O2 Sat 96 04/21/16 16:43 POC ABG Base Excess -2 04/21/16 16:43 FiO2 2 % 04/21/16 16:43 Sodium 136 mmol/L (137-145) L 04/20/16 03:08 Potassium 3.9 mmol/L (3.6-5.0) D 04/20/16 03:08 Chloride 95.7 mmol/L (98-107) L 04/20/16 03:08 Carbon Dioxide 23 mmol/L (22-30) 04/20/16 03:08 Anion Gap 21 mmol/L 04/20/16 03:08 BUN 12 mg/dL (9-20) 04/20/16 03:08 Creatinine 0.9 mg/dL (0.8-1.5) 04/20/16 03:08 Estimated GFR > 60 ml/min 04/20/16 03:08 BUN/Creatinine Ratio 13.33 % 04/20/16 03:08 Glucose 320 mg/dL (75-100) H 04/20/16 03:08 POC Glucose 118 (70-105) H 04/24/16 21:11 Calcium 7.9 mg/dL (8.4-10.2) L 04/20/16 03:08 Total Creatine Kinase 1088 units/L (55-170) H 04/25/16 13:14 CK-MB (CK-2) 13.4 ng/mL (0.0-4.0) H 04/21/16 14:43 CK-MB (CK-2) Rel Index 0.1 (0-4) 04/21/16 14:43 Troponin T < 0.010 ng/mL (0.00-0.029) 04/21/16 14:43 Blood Type B POSITIVE 04/16/16 12:30 Antibody Screen Negative 04/16/16 12:30
[2016-04-26] MEDS: NORCO 5/325 PO PRN ×2 (13:55→23:18)
--- NOTE | 2016-04-26 14:01 | Progress Note ---
Assessment and Plan Continue to increase act as tolerated. Rehab eval. inprogress. Will stop heparin gtt, as Inr is in therapeutic range for >24hrs. Continue Coumadin (monitored by pharmacy). Attempting to get MRI as recommended. Will have Anesthesia aid in sedation for possible In-house MRI on Friday. If this is unsuccessful then will send pt out to outside facility for open MRI. Will make pt npo for Friday. - Patient Problems (1) Atherosclerosis of [place] arteries of extremity with rest pain Current Visit: Yes Status: Acute Qualifiers: Peripheral atherosclerosis location: P Laterality: L (2) Paresthesia of bilateral legs Current Visit: Yes Status: Acute Subjective Date of service: 04/26/16 Principal diagnosis: left foot ischemia Interval history: Pt sleeping. Objective - Constitutional Vitals: Vital Signs - 12hr 04/26/16 09:14 O2 Sat by Pulse 96 Oximetry General appearance: Present: no acute distress - Respiratory Respiratory effort: normal Extremities: normal temperature - Labs CBC & Chem 7: 04/25/16 04:30 04/20/16 03:08 Labs: Abnormal lab results 04/25/16 04/26/16 Range/Units 13:14 03:43 PT 26.2 H (12.2-14.9) Sec. INR 2.39 H (0.87-1.13) Total Creatine Kinase 1088 H (55-170) units/L
[2016-04-26 14:14] LABS: Basophils % (Auto) 0.9 % (0.0-1.8); Eosinophils % (Auto) 1.9 % (0.0-4.3); Hemoglobin 12.9 gm/dl (11.8-15.2); Mean Corpuscular HGB Conc 33 % (32-34); Mean Corpuscular Volume 78 fl (84-94); Platelet Count 348 K/mm3 (140-440); Red Blood Count 5.02 M/mm3 (3.65-5.03); Red Cell Distribution Width 17.5 % (13.2-15.2); White Blood Count 11.4 K/mm3 (4.5-11.0)
[2016-04-26 14:28] LABS: Mean Corpuscular Hemoglobin 26 pg (28-32)
[2016-04-26 16:13] LABS: Anion Gap 18 mmol/L; Blood Urea Nitrogen 10 mg/dL (9-20); Calcium 8.9 mg/dL (8.4-10.2); Carbon Dioxide 22 mmol/L (22-30); Chloride 99.9 mmol/L (98-107); Glucose 127 mg/dL (75-100); Potassium 4.3 mmol/L (3.6-5.0); Sodium 136 mmol/L (137-145)
[2016-04-26] MEDS: COUMADIN PO SCH ×2 (17:43)
[2016-04-26] MEDS: AMBIEN PO PRN (23:19)
[2016-04-27] MEDS: LOPRESSOR PO SCH ×3 (00:46→23:43)
[2016-04-27] MEDS: LEVEMIR SUB-Q SCH ×2 (00:47→23:43)
[2016-04-27] MEDS: MORPHINE IV PRN (03:59)
[2016-04-27 05:08] LABS: Hematocrit 38.2 % (35.5-45.6)
[2016-04-27 05:17] LABS: INR 2.82 (0.87-1.13)
--- NOTE | 2016-04-27 09:27 | Progress Note ---
Hospitalist Physical - Constitutional Vitals: Temp Pulse Resp BP Pulse Ox 98.2 F 80 20 128/80 98 04/27/16 08:00 04/27/16 08:00 04/27/16 08:00 04/27/16 08:00 04/27/16 08:00 General appearance: Present: no acute distress, well-nourished Results - Labs CBC & Chem 7: 04/27/16 04:10 04/26/16 13:42 Labs: Laboratory Last Values WBC 11.4 K/mm3 (4.5-11.0) H 04/26/16 13:42 RBC 5.02 M/mm3 (3.65-5.03) 04/26/16 13:42 Hgb 13.0 gm/dl (11.8-15.2) 04/27/16 04:10 Hct 38.2 % (35.5-45.6) 04/27/16 04:10 MCV 78 fl (84-94) L 04/26/16 13:42 MCH 26 pg (28-32) L 04/26/16 13:42 MCHC 33 % (32-34) 04/26/16 13:42 RDW 17.5 % (13.2-15.2) H 04/26/16 13:42 Plt Count 354 K/mm3 (140-440) 04/27/16 04:10 Lymph % (Auto) 22.7 % (13.4-35.0) 04/26/16 13:42 [place] % (Auto) 7.8 % (0.0-7.3) H 04/26/16 13:42 Eos % (Auto) 1.9 % (0.0-4.3) 04/26/16 13:42 Baso % (Auto) 0.9 % (0.0-1.8) 04/26/16 13:42 Lymph # 2.6 K/mm3 (1.2-5.4) 04/26/16 13:42 [place] # 0.9 K/mm3 (0.0-0.8) H 04/26/16 13:42 Eos # 0.2 K/mm3 (0.0-0.4) 04/26/16 13:42 Baso # 0.1 K/mm3 (0.0-0.1) 04/26/16 13:42 Seg Neutrophils % 66.7 % (40.0-70.0) 04/26/16 13:42 Seg Neutrophils # 7.6 K/mm3 (1.8-7.7) 04/26/16 13:42 PT 29.8 Sec. (12.2-14.9) H 04/27/16 04:10 INR 2.82 (0.87-1.13) H 04/27/16 04:10 APTT 24.7 Sec. (24.2-36.6) 04/19/16 15:10 Heparin Anti-Xa Level < 0.10 U.I./ml (0.3-0.7) L 04/27/16 04:10 POC ABG pH 7.447 (7.35-7.45) 04/21/16 16:43 POC ABG pCO2 31.8 (35-45) L 04/21/16 16:43 POC ABG pO2 79 (80-105) L 04/21/16 16:43 POC ABG HCO3 21.9 04/21/16 16:43 POC ABG Total CO2 23 04/21/16 16:43 POC ABG O2 Sat 96 04/21/16 16:43 POC ABG Base Excess -2 04/21/16 16:43 FiO2 2 % 04/21/16 16:43 Sodium 136 mmol/L (137-145) L 04/26/16 13:42 Potassium 3.9 mmol/L (3.6-5.0) D 04/20/16 03:08 Chloride 95.7 mmol/L (98-107) L 04/20/16 03:08 Carbon Dioxide 22 mmol/L (22-30) 04/26/16 13:42 Anion Gap 21 mmol/L 04/20/16 03:08 BUN 10 mg/dL (9-20) 04/26/16 13:42 Creatinine 0.8 mg/dL (0.8-1.5) 04/26/16 13:42 Estimated GFR > 60 ml/min 04/26/16 13:42 BUN/Creatinine Ratio 12.50 % 04/26/16 13:42 Glucose 127 mg/dL (75-100) H 04/26/16 13:42 POC Glucose 118 (70-105) H 04/24/16 21:11 Calcium 8.9 mg/dL (8.4-10.2) 04/26/16 13:42 Total Creatine Kinase 1088 units/L (55-170) H 04/25/16 13:14 CK-MB (CK-2) 13.4 ng/mL (0.0-4.0) H 04/21/16 14:43 CK-MB (CK-2) Rel Index 0.1 (0-4) 04/21/16 14:43 Troponin T < 0.010 ng/mL (0.00-0.029) 04/21/16 14:43 Blood Type B POSITIVE 04/16/16 12:30 Antibody Screen Negative 04/16/16 12:30
[2016-04-27] MEDS: NOVOLOG SUB-Q SCH ×4 (09:36→23:42)
--- NOTE | 2016-04-27 09:38 | Progress Note ---
Assessment and Plan Assessment and plan: --Type 2 diabetes mellitus moderate control Accu-Chek sliding scale coverage and ADA diet, Lantus insulin, an oral hypoglycemics Closely monitor blood sugars and adjust dose -- Peripheral vascular disease - status post left femoropopliteal bypass 04/19; management per vascular surgery; on vasodilators and anticoagulation -- Bilateral lower extremities weakness/numbness Neurology evaluation and recommendations noted and appreciated, recommend multiple MRIs , both in-house as well as open MRIs Case management assisting with scheduling open MRIs --History of CVA - on dual antiplatelet therapy and statin --Rhabdomyolysis With preserved renal function, gentle IV hydration Closely monitor CK levels --DVT prophylaxis , as she is already on anticoagulation Consults and recommendations noted and appreciated Patient's condition treatment plan discussed in detail with the patient and his nurse Was closely monitor the patient adjust the management as needed History Interval history: Patient seen and evaluated in his room this morning medical records reviewed No new events reported by the nursing staff Patient is more of both the lower extremities still has mild tingling and numbness and weakness Heparin drip, therapeutic INR on Coumadin No new complaints Hospitalist Physical - Constitutional Vitals: Temp Pulse Resp BP Pulse Ox 98.2 F 80 20 128/80 98 04/27/16 08:00 04/27/16 08:00 04/27/16 08:00 04/27/16 08:00 04/27/16 08:00 General appearance: Present: no acute distress, well-nourished - EENT Eyes: Present: PERRL, EOM intact - Neck Neck: Present: supple, normal ROM - Respiratory Respiratory effort: normal Respiratory: negative: diminished, rales, rhonchi - Cardiovascular Rhythm: regular Heart Sounds: Present: S1 & S2 - Extremities Extremities: No edema, normal temperature, abnormal (educable scar intact) - Abdominal General gastrointestinal: soft, non-tender, non-distended, normal bowel sounds - Integumentary Integumentary: Present: clear, warm - Psychiatric Psychiatric: appropriate mood/affect, cooperative - Neurologic Neurologic: CNII-XII intact, moves all extremities Results - Labs CBC & Chem 7: 04/27/16 04:10 04/26/16 13:42 Labs: Laboratory Last Values WBC 11.4 K/mm3 (4.5-11.0) H 04/26/16 13:42 RBC 5.02 M/mm3 (3.65-5.03) 04/26/16 13:42 Hgb 13.0 gm/dl (11.8-15.2) 04/27/16 04:10 Hct 38.2 % (35.5-45.6) 04/27/16 04:10 MCV 78 fl (84-94) L 04/26/16 13:42 MCH 26 pg (28-32) L 04/26/16 13:42 MCHC 33 % (32-34) 04/26/16 13:42 RDW 17.5 % (13.2-15.2) H 04/26/16 13:42 Plt Count 354 K/mm3 (140-440) 04/27/16 04:10 Lymph % (Auto) 22.7 % (13.4-35.0) 04/26/16 13:42 [place] % (Auto) 7.8 % (0.0-7.3) H 04/26/16 13:42 Eos % (Auto) 1.9 % (0.0-4.3) 04/26/16 13:42 Baso % (Auto) 0.9 % (0.0-1.8) 04/26/16 13:42 Lymph # 2.6 K/mm3 (1.2-5.4) 04/26/16 13:42 [place] # 0.9 K/mm3 (0.0-0.8) H 04/26/16 13:42 Eos # 0.2 K/mm3 (0.0-0.4) 04/26/16 13:42 Baso # 0.1 K/mm3 (0.0-0.1) 04/26/16 13:42 Seg Neutrophils % 66.7 % (40.0-70.0) 04/26/16 13:42 Seg Neutrophils # 7.6 K/mm3 (1.8-7.7) 04/26/16 13:42 PT 29.8 Sec. (12.2-14.9) H 04/27/16 04:10 INR 2.82 (0.87-1.13) H 04/27/16 04:10 APTT 24.7 Sec. (24.2-36.6) 04/19/16 15:10 Heparin Anti-Xa Level < 0.10 U.I./ml (0.3-0.7) L 04/27/16 04:10 POC ABG pH 7.447 (7.35-7.45) 04/21/16 16:43 POC ABG pCO2 31.8 (35-45) L 04/21/16 16:43 POC ABG pO2 79 (80-105) L 04/21/16 16:43 POC ABG HCO3 21.9 04/21/16 16:43 POC ABG Total CO2 23 04/21/16 16:43 POC ABG O2 Sat 96 04/21/16 16:43 POC ABG Base Excess -2 04/21/16 16:43 FiO2 2 % 04/21/16 16:43 Sodium 136 mmol/L (137-145) L 04/26/16 13:42 Potassium 3.9 mmol/L (3.6-5.0) D 04/20/16 03:08 Chloride 95.7 mmol/L (98-107) L 04/20/16 03:08 Carbon Dioxide 22 mmol/L (22-30) 04/26/16 13:42 Anion Gap 21 mmol/L 04/20/16 03:08 BUN 10 mg/dL (9-20) 04/26/16 13:42 Creatinine 0.8 mg/dL (0.8-1.5) 04/26/16 13:42 Estimated GFR > 60 ml/min 04/26/16 13:42 BUN/Creatinine Ratio 12.50 % 04/26/16 13:42 Glucose 127 mg/dL (75-100) H 04/26/16 13:42 POC Glucose 118 (70-105) H 04/24/16 21:11 Calcium 8.9 mg/dL (8.4-10.2) 04/26/16 13:42 Total Creatine Kinase 1088 units/L (55-170) H 04/25/16 13:14 CK-MB (CK-2) 13.4 ng/mL (0.0-4.0) H 04/21/16 14:43 CK-MB (CK-2) Rel Index 0.1 (0-4) 04/21/16 14:43 Troponin T < 0.010 ng/mL (0.00-0.029) 04/21/16 14:43 Blood Type B POSITIVE 04/16/16 12:30 Antibody Screen Negative 04/16/16 12:30
[2016-04-27] MEDS: PERCOCET 5/325 PO PRN ×2 (09:48→20:01)
[2016-04-27] MEDS: IMDUR PO SCH (09:51)
[2016-04-27] MEDS: GLUCOPHAGE PO SCH ×2 (09:51→16:59)
[2016-04-27] MEDS: ASPIRIN PO SCH (09:52)
[2016-04-27] MEDS: TRENTAL PO SCH ×3 (09:52→20:01)
[2016-04-27] MEDS: GLUCOTROL XL PO SCH (09:52)
[2016-04-27] MEDS: LYRICA PO SCH ×3 (11:14→20:00)
--- NOTE | 2016-04-27 11:40 | Progress Note ---
Assessment and Plan Patient currently awaiting MRI of his lumbar spine. Given his left calf pain, and arterial ultrasound will be ordered. Subjective Date of service: 04/27/16 Principal diagnosis: left foot ischemia Interval history: Patient is status post femorofemoral bypass graft whose developed neurogenic pain. Is awaiting an MRI with anesthesia on Friday. He complains of calf pain. Otherwise no specific complaints. Objective - Constitutional Vitals: Vital Signs - 12hr 04/27/16 04/27/16 04/27/16 00:00 00:18 00:46 Temperature 97.8 F Pulse Rate 88 Pulse Rate [ Apical] Pulse Rate [ 108 H Left Radial] Pulse Rate [ 88 Right Radial] Respiratory 18 Rate Blood Pressure 129/79 Blood Pressure 129/79 [Right Arm] O2 Sat by Pulse 95 Oximetry 04/27/16 04/27/16 04/27/16 03:59 08:00 09:46 Temperature 98.2 F Pulse Rate Pulse Rate [ 80 Apical] Pulse Rate [ Left Radial] Pulse Rate [ Right Radial] Respiratory 20 20 Rate Blood Pressure Blood Pressure 128/80 [Right Arm] O2 Sat by Pulse 98 96 Oximetry 04/27/16 04/27/16 09:49 09:51 Temperature Pulse Rate Pulse Rate [ Apical] Pulse Rate [ Left Radial] Pulse Rate [ Right Radial] Respiratory Rate Blood Pressure 128/80 128/80 Blood Pressure [Right Arm] O2 Sat by Pulse Oximetry General appearance: Present: no acute distress, obese - EENT Eyes: PERRL ENT: hearing intact - Neck Neck: supple, normal ROM - Respiratory Respiratory effort: normal - Breasts Breasts: deferred Extremities: abnormal (per HPI) - Gastrointestinal General gastrointestinal: Present: deferred Rectal Exam: deferred - Genitourinary Male genitourinary: deferred - Musculoskeletal Musculoskeletal: no generalized weakness - Neurologic Neurologic: no focal deficits - Psychiatric Psychiatric: appropriate mood/affect, cooperative - Labs CBC & Chem 7: 04/27/16 04:10 04/26/16 13:42 Labs: Abnormal lab results 04/26/16 04/26/16 04/27/16 Range/Units 13:42 13:42 04:10 WBC 11.4 H (4.5-11.0) K/mm3 MCV 78 L (84-94) fl MCH 26 L (28-32) pg RDW 17.5 H (13.2-15.2) % [place] % (Auto) 7.8 H (0.0-7.3) % [place] # 0.9 H (0.0-0.8) K/mm3 PT 29.8 H (12.2-14.9) Sec. INR 2.82 H (0.87-1.13) Heparin Anti-Xa Level < 0.10 L (0.3-0.7) U.I./ml Sodium 136 L (137-145) mmol/L Glucose 127 H (75-100) mg/dL
[2016-04-27] MEDS: COUMADIN PO SCH (17:03)
--- NOTE | 2016-04-27 17:20 | Progress Note ---
Assessment and Plan Patient awake, resting on O2 3 litres. O2 satuaration 96%. Patient is weak. No acute respiratory distress. - Patient Problems (1) Atherosclerosis of [place] arteries of extremity with rest pain Current Visit: Yes Status: Acute Qualifiers: Peripheral atherosclerosis location: P Laterality: L Plan to address problem: Management as per vascular surgery. Patient is on coumadin. and Plavix. Dulex studies of legs results pending. (2) PAD (peripheral artery disease) Current Visit: Yes Status: Chronic Plan to address problem: Management as per vascular surgery. Patient is on coumadin and Plavix. (3) Uncontrolled diabetes mellitus Current Visit: Yes Status: Chronic Qualifiers: Diabetes mellitus type: type 2 Diabetes mellitus complication status: with circulatory complication Diabetes mellitus complication detail: with other circulatory complications Diabetic retinopathy severity: D Diabetes mellitus macular edema: D Diabetes mellitus intermediate project manager insulin use: without intermediate project manager use Chronic kidney disease stage: C Qualified Code(s): E11.59 - Type 2 diabetes mellitus with other circulatory complications; E11.65 - Type 2 diabetes mellitus with hyperglycemia Plan to address problem: Management as per primary care. Subjective Date of service: 04/27/16 Principal diagnosis: left foot ischemia Interval history: Patient alert,awake. No complaint of chest pain or shortness of breath.O2 satuaration 96% on room air. Cpmplaining leg pains. Objective Vital Signs - 12hr 04/27/16 04/27/16 04/27/16 08:00 09:46 09:49 Temperature 98.2 F Pulse Rate [ 80 Apical] Respiratory 20 Rate Blood Pressure 128/80 Blood Pressure 128/80 [Right Arm] O2 Sat by Pulse 98 96 Oximetry 04/27/16 09:51 Temperature Pulse Rate [ Apical] Respiratory Rate Blood Pressure 128/80 Blood Pressure [Right Arm] O2 Sat by Pulse Oximetry Constitutional: no acute distress, alert Eyes: non-icteric ENT: oropharynx moist Neck: supple, no lymphadenopathy Effort: normal Ascultation: Bilateral: diminished breath sounds Cardiovascular: regular rate and rhythm Gastrointestinal: normoactive bowel sounds, soft, non-tender, non-distended Integumentary: other (PVD cghanges with sparse haior and pigmentation) Extremities: no cyanosis, edema (trace) Neurologic: normal mental status, non-focal exam, pupils equal and round, motor strength normal and Psychiatric: mood appropriate, affect normal CBC and BMP: 04/27/16 04:10 04/26/16 13:42 ABG, PT/INR, D-dimer: ABG POC ABG pH 7.447 (7.35-7.45) 04/21/16 16:43 POC ABG pCO2 31.8 (35-45) L 04/21/16 16:43 POC ABG pO2 79 (80-105) L 04/21/16 16:43 POC ABG HCO3 21.9 04/21/16 16:43 POC ABG Total CO2 23 04/21/16 16:43 POC ABG O2 Sat 96 04/21/16 16:43 PT/INR, D-dimer PT 29.8 Sec. (12.2-14.9) H 04/27/16 04:10 INR 2.82 (0.87-1.13) H 04/27/16 04:10 Abnormal lab findings: Abnormal Labs 04/16/16 04/16/16 04/16/16 12:30 12:30 12:30 WBC RBC 6.37 H Hgb 16.5 H Hct 48.8 H MCV 77 L MCH 26 L RDW 16.9 H [place] % (Auto) 8.4 H [place] # PT 16.6 H INR 1.35 H Heparin Anti-Xa Level POC ABG pCO2 POC ABG pO2 Sodium 136 L Chloride 96.3 L Carbon Dioxide Glucose 285 H POC Glucose Calcium Total Creatine Kinase CK-MB (CK-2) 04/19/16 04/19/16 04/19/16 07:03 14:01 15:02 WBC RBC Hgb Hct MCV MCH RDW [place] % (Auto) [place] # PT INR Heparin Anti-Xa Level POC ABG pCO2 POC ABG pO2 Sodium Chloride Carbon Dioxide Glucose POC Glucose 213 H 388 H 415 H Calcium Total Creatine Kinase CK-MB (CK-2) 04/19/16 04/19/16 04/19/16 15:10 15:10 16:55 WBC 16.8 H RBC 5.94 H Hgb Hct 46.3 H MCV 78 L MCH 25 L RDW 17.1 H [place] % (Auto) [place] # PT INR Heparin Anti-Xa Level 0.11 L POC ABG pCO2 POC ABG pO2 Sodium Chloride Carbon Dioxide Glucose POC Glucose 310 H Calcium Total Creatine Kinase CK-MB (CK-2) 03/1004/19/16 04/20/16 17:55 22:55 03:08 WBC RBC Hgb Hct MCV MCH RDW [place] % (Auto) [place] # PT INR Heparin Anti-Xa Level POC ABG pCO2 POC ABG pO2 Sodium 136 L 136 L Chloride 97.6 L 95.7 L Carbon Dioxide 19 L Glucose 365 H 320 H POC Glucose 255 H Calcium 8.0 L 7.9 L Total Creatine Kinase CK-MB (CK-2) 04/20/16 04/20/16 04/20/16 03:08 03:08 11:51 WBC RBC Hgb Hct MCV MCH RDW [place] % (Auto) [place] # PT 15.3 H INR 1.22 H Heparin Anti-Xa Level 1.18 H POC ABG pCO2 POC ABG pO2 Sodium Chloride Carbon Dioxide Glucose POC Glucose 277 H Calcium Total Creatine Kinase CK-MB (CK-2) 04/20/16 04/20/16 04/20/16 13:10 15:27 21:55 WBC RBC Hgb Hct MCV MCH RDW [place] % (Auto) [place] # PT INR Heparin Anti-Xa Level 0.89 H POC ABG pCO2 POC ABG pO2 Sodium Chloride Carbon Dioxide Glucose POC Glucose 282 H 243 H Calcium Total Creatine Kinase CK-MB (CK-2) 04/21/16 04/21/16 04/21/16 06:37 12:18 14:43 WBC RBC Hgb Hct MCV MCH RDW [place] % (Auto) [place] # PT INR Heparin Anti-Xa Level POC ABG pCO2 POC ABG pO2 Sodium Chloride Carbon Dioxide Glucose POC Glucose 216 H 200 H Calcium Total Creatine Kinase 8731 H CK-MB (CK-2) 13.4 H 04/21/16 04/21/16 04/21/16 15:54 16:43 17:53 WBC RBC Hgb Hct MCV MCH RDW [place] % (Auto) [place] # PT INR Heparin Anti-Xa Level 0.12 L POC ABG pCO2 31.8 L POC ABG pO2 79 L Sodium Chloride Carbon Dioxide Glucose POC Glucose 189 H Calcium Total Creatine Kinase CK-MB (CK-2) 04/21/16 04/22/16 04/22/16 21:20 02:43 02:43 WBC RBC Hgb Hct MCV MCH RDW [place] % (Auto) [place] # PT 15.5 H INR 1.24 H Heparin Anti-Xa Level 0.21 L POC ABG pCO2 POC ABG pO2 Sodium Chloride Carbon Dioxide Glucose POC Glucose 183 H Calcium Total Creatine Kinase CK-MB (CK-2) 04/22/16 04/22/16 04/22/16 07:42 07:53 11:43 WBC RBC Hgb Hct MCV MCH RDW [place] % (Auto) [place] # PT INR Heparin Anti-Xa Level 0.22 L POC ABG pCO2 POC ABG pO2 Sodium Chloride Carbon Dioxide Glucose POC Glucose 179 H 197 H Calcium Total Creatine Kinase CK-MB (CK-2) 04/22/16 04/22/16 04/22/16 16:36 17:13 21:06 WBC RBC Hgb Hct MCV MCH RDW [place] % (Auto) [place] # PT INR Heparin Anti-Xa Level 0.29 L POC ABG pCO2 POC ABG pO2 Sodium Chloride Carbon Dioxide Glucose POC Glucose 200 H 146 H Calcium Total Creatine Kinase CK-MB (CK-2) 04/23/16 04/23/16 04/23/16 05:37 06:09 11:06 WBC RBC Hgb Hct MCV MCH RDW [place] % (Auto) [place] # PT 15.8 H INR 1.27 H Heparin Anti-Xa Level POC ABG pCO2 POC ABG pO2 Sodium Chloride Carbon Dioxide Glucose POC Glucose 129 H 160 H Calcium Total Creatine Kinase CK-MB (CK-2) 04/23/16 04/24/16 04/24/16 21:08 05:20 06:17 WBC RBC Hgb Hct MCV MCH RDW [place] % (Auto) [place] # PT 20.3 H INR 1.74 H Heparin Anti-Xa Level POC ABG pCO2 POC ABG pO2 Sodium Chloride Carbon Dioxide Glucose POC Glucose 113 H 117 H Calcium Total Creatine Kinase CK-MB (CK-2) 04/24/16 04/24/16 04/25/16 11:32 21:11 04:30 WBC RBC Hgb Hct MCV MCH RDW [place] % (Auto) [place] # PT 23.9 H INR 2.13 H Heparin Anti-Xa Level POC ABG pCO2 POC ABG pO2 Sodium Chloride Carbon Dioxide Glucose POC Glucose 128 H 118 H Calcium Total Creatine Kinase CK-MB (CK-2) 04/25/16 04/26/16 04/26/16 13:14 03:43 13:42 WBC 11.4 H RBC Hgb Hct MCV 78 L MCH 26 L RDW 17.5 H [place] % (Auto) 7.8 H [place] # 0.9 H PT 26.2 H INR 2.39 H Heparin Anti-Xa Level POC ABG pCO2 POC ABG pO2 Sodium Chloride Carbon Dioxide Glucose POC Glucose Calcium Total Creatine Kinase 1088 H CK-MB (CK-2) 04/26/16 04/27/16 13:42 04:10 WBC RBC Hgb Hct MCV MCH RDW [place] % (Auto) [place] # PT 29.8 H INR 2.82 H Heparin Anti-Xa Level < 0.10 L POC ABG pCO2 POC ABG pO2 Sodium 136 L Chloride Carbon Dioxide Glucose 127 H POC Glucose Calcium Total Creatine Kinase CK-MB (CK-2)
[2016-04-27] MEDS: XANAX PO PRN (17:23)
[2016-04-27] MEDS: AMBIEN PO PRN (23:43)
[2016-04-28] MEDS: PERCOCET 5/325 PO PRN ×4 (02:43→21:45)
[2016-04-28] MEDS: XANAX PO PRN (05:37)
[2016-04-28 05:48] LABS: Basophils % (Auto) 0.6 % (0.0-1.8); Eosinophils % (Auto) 1.9 % (0.0-4.3); Hematocrit 38.8 % (35.5-45.6); Hemoglobin 12.8 gm/dl (11.8-15.2); Mean Corpuscular HGB Conc 33 % (32-34); Mean Corpuscular Volume 77 fl (84-94); Platelet Count 377 K/mm3 (140-440); Red Blood Count 5.03 M/mm3 (3.65-5.03); Red Cell Distribution Width 17.3 % (13.2-15.2); White Blood Count 9.4 K/mm3 (4.5-11.0)
[2016-04-28 06:06] LABS: Anion Gap 17 mmol/L; BUN/Creatinine Ratio 17.14; Blood Urea Nitrogen 12 mg/dL (9-20); Calcium 8.7 mg/dL (8.4-10.2); Carbon Dioxide 24 mmol/L (22-30); Chloride 102.4 mmol/L (98-107); Glucose 109 mg/dL (75-100); Potassium 4.2 mmol/L (3.6-5.0); Sodium 139 mmol/L (137-145)
[2016-04-28 06:23] LABS: INR 2.79 (0.87-1.13)
[2016-04-28 06:24] LABS: Mean Corpuscular Hemoglobin 25 pg (28-32)
[2016-04-28] MEDS: PLAVIX PO SCH ×2 (07:57→11:03)
[2016-04-28] MEDS: NOVOLOG SUB-Q SCH ×4 (07:58→22:00)
[2016-04-28] MEDS: GLUCOTROL XL PO SCH (08:40)
[2016-04-28] MEDS: LYRICA PO SCH ×3 (08:40→20:38)
[2016-04-28] MEDS: GLUCOPHAGE PO SCH ×2 (08:41→18:19)
--- NOTE | 2016-04-28 10:32 | Progress Note ---
Assessment and Plan Patient awake, resting on O2 3 litres. O2 satuaration 97%. Patient is weak. No acute respiratory distress. - Patient Problems (1) Atherosclerosis of [place] arteries of extremity with rest pain Current Visit: Yes Status: Acute Qualifiers: Peripheral atherosclerosis location: P Laterality: L Plan to address problem: Management as per vascular surgery. Patient is on coumadin. and Plavix. Dulex studies of legs results pending. (2) PAD (peripheral artery disease) Current Visit: Yes Status: Chronic Plan to address problem: Management as per vascular surgery. Patient is on coumadin and Plavix. (3) Uncontrolled diabetes mellitus Current Visit: Yes Status: Chronic Qualifiers: Diabetes mellitus type: type 2 Diabetes mellitus complication status: with circulatory complication Diabetes mellitus complication detail: with other circulatory complications Diabetic retinopathy severity: D Diabetes mellitus macular edema: D Diabetes mellitus long term acute care registered nurse insulin use: without long term acute care registered nurse use Chronic kidney disease stage: C Qualified Code(s): E11.59 - Type 2 diabetes mellitus with other circulatory complications; E11.65 - Type 2 diabetes mellitus with hyperglycemia Plan to address problem: Management as per primary care. Subjective Date of service: 04/28/16 Principal diagnosis: left foot ischemia Interval history: Patient alert,awake. No complaint of chest pain or shortness of breath.O2 satuaration 97% on room air. Cpmplaining leg pains. Objective Vital Signs - 12hr 04/27/16 04/28/16 04/28/16 23:43 00:00 02:43 Temperature 98.5 F Pulse Rate 94 H Pulse Rate [ 114 H Apical] Respiratory 20 20 Rate Blood Pressure 129/76 Blood Pressure 121/73 [Right Arm] O2 Sat by Pulse Oximetry 04/28/16 04/28/16 07:49 08:00 Temperature 98.2 F Pulse Rate Pulse Rate [ 80 Apical] Respiratory 18 Rate Blood Pressure Blood Pressure 124/80 [Right Arm] O2 Sat by Pulse 96 97 Oximetry Constitutional: no acute distress, alert Eyes: non-icteric ENT: oropharynx moist Neck: supple, no lymphadenopathy Effort: normal Ascultation: Bilateral: diminished breath sounds Cardiovascular: regular rate and rhythm Gastrointestinal: normoactive bowel sounds, soft, non-tender, non-distended Integumentary: other (PVD cghanges with sparse haior and pigmentation) Extremities: no cyanosis, edema (trace) Neurologic: normal mental status, non-focal exam, pupils equal and round, motor strength normal and Psychiatric: mood appropriate, affect normal CBC and BMP: 04/28/16 05:07 04/28/16 05:07 ABG, PT/INR, D-dimer: ABG POC ABG pH 7.447 (7.35-7.45) 04/21/16 16:43 POC ABG pCO2 31.8 (35-45) L 04/21/16 16:43 POC ABG pO2 79 (80-105) L 04/21/16 16:43 POC ABG HCO3 21.9 04/21/16 16:43 POC ABG Total CO2 23 04/21/16 16:43 POC ABG O2 Sat 96 04/21/16 16:43 PT/INR, D-dimer PT 29.6 Sec. (12.2-14.9) H 04/28/16 05:07 INR 2.79 (0.87-1.13) H 04/28/16 05:07 Abnormal lab findings: Abnormal Labs 04/16/16 04/16/16 04/16/16 12:30 12:30 12:30 WBC RBC 6.37 H Hgb 16.5 H Hct 48.8 H MCV 77 L MCH 26 L RDW 16.9 H [place] % (Auto) 8.4 H [place] # PT 16.6 H INR 1.35 H Heparin Anti-Xa Level POC ABG pCO2 POC ABG pO2 Sodium 136 L Chloride 96.3 L Carbon Dioxide Creatinine Glucose 285 H POC Glucose Calcium Total Creatine Kinase CK-MB (CK-2) 04/19/16 04/19/16 04/19/16 07:03 14:01 15:02 WBC RBC Hgb Hct MCV MCH RDW [place] % (Auto) [place] # PT INR Heparin Anti-Xa Level POC ABG pCO2 POC ABG pO2 Sodium Chloride Carbon Dioxide Creatinine Glucose POC Glucose 213 H 388 H 415 H Calcium Total Creatine Kinase CK-MB (CK-2) 04/19/16 04/19/16 04/19/16 15:10 15:10 16:55 WBC 16.8 H RBC 5.94 H Hgb Hct 46.3 H MCV 78 L MCH 25 L RDW 17.1 H [place] % (Auto) [place] # PT INR Heparin Anti-Xa Level 0.11 L POC ABG pCO2 POC ABG pO2 Sodium Chloride Carbon Dioxide Creatinine Glucose POC Glucose 310 H Calcium Total Creatine Kinase CK-MB (CK-2) 04/19/16 04/19/16 04/20/16 17:55 22:55 03:08 WBC RBC Hgb Hct MCV MCH RDW [place] % (Auto) [place] # PT INR Heparin Anti-Xa Level POC ABG pCO2 POC ABG pO2 Sodium 136 L 136 L Chloride 97.6 L 95.7 L Carbon Dioxide 19 L Creatinine Glucose 365 H 320 H POC Glucose 255 H Calcium 8.0 L 7.9 L Total Creatine Kinase CK-MB (CK-2) 04/20/16 04/20/16 04/20/16 03:08 03:08 11:51 WBC RBC Hgb Hct MCV MCH RDW [place] % (Auto) [place] # PT 15.3 H INR 1.22 H Heparin Anti-Xa Level 1.18 H POC ABG pCO2 POC ABG pO2 Sodium Chloride Carbon Dioxide Creatinine Glucose POC Glucose 277 H Calcium Total Creatine Kinase CK-MB (CK-2) 04/20/16 04/20/16 04/20/16 13:10 15:27 21:55 WBC RBC Hgb Hct MCV MCH RDW [place] % (Auto) [place] # PT INR Heparin Anti-Xa Level 0.89 H POC ABG pCO2 POC ABG pO2 Sodium Chloride Carbon Dioxide Creatinine Glucose POC Glucose 282 H 243 H Calcium Total Creatine Kinase CK-MB (CK-2) 04/21/16 04/21/16 04/21/16 06:37 12:18 14:43 WBC RBC Hgb Hct MCV MCH RDW [place] % (Auto) [place] # PT INR Heparin Anti-Xa Level POC ABG pCO2 POC ABG pO2 Sodium Chloride Carbon Dioxide Creatinine Glucose POC Glucose 216 H 200 H Calcium Total Creatine Kinase 8731 H CK-MB (CK-2) 13.4 H 04/21/16 04/21/16 04/21/16 15:54 16:43 17:53 WBC RBC Hgb Hct MCV MCH RDW [place] % (Auto) [place] # PT INR Heparin Anti-Xa Level 0.12 L POC ABG pCO2 31.8 L POC ABG pO2 79 L Sodium Chloride Carbon Dioxide Creatinine Glucose POC Glucose 189 H Calcium Total Creatine Kinase CK-MB (CK-2) 04/21/16 04/22/16 04/22/16 21:20 02:43 02:43 WBC RBC Hgb Hct MCV MCH RDW [place] % (Auto) [place] # PT 15.5 H INR 1.24 H Heparin Anti-Xa Level 0.21 L POC ABG pCO2 POC ABG pO2 Sodium Chloride Carbon Dioxide Creatinine Glucose POC Glucose 183 H Calcium Total Creatine Kinase CK-MB (CK-2) 04/22/16 04/22/16 04/22/16 07:42 07:53 11:43 WBC RBC Hgb Hct MCV MCH RDW [place] % (Auto) [place] # PT INR Heparin Anti-Xa Level 0.22 L POC ABG pCO2 POC ABG pO2 Sodium Chloride Carbon Dioxide Creatinine Glucose POC Glucose 179 H 197 H Calcium Total Creatine Kinase CK-MB (CK-2) 04/22/16 04/22/16 04/22/16 16:36 17:13 21:06 WBC RBC Hgb Hct MCV MCH RDW [place] % (Auto) [place] # PT INR Heparin Anti-Xa Level 0.29 L POC ABG pCO2 POC ABG pO2 Sodium Chloride Carbon Dioxide Creatinine Glucose POC Glucose 200 H 146 H Calcium Total Creatine Kinase CK-MB (CK-2) 04/23/16 04/23/16 04/23/16 05:37 06:09 11:06 WBC RBC Hgb Hct MCV MCH RDW [place] % (Auto) [place] # PT 15.8 H INR 1.27 H Heparin Anti-Xa Level POC ABG pCO2 POC ABG pO2 Sodium Chloride Carbon Dioxide Creatinine Glucose POC Glucose 129 H 160 H Calcium Total Creatine Kinase CK-MB (CK-2) 04/23/16 04/24/16 04/24/16 21:08 05:20 06:17 WBC RBC Hgb Hct MCV MCH RDW [place] % (Auto) [place] # PT 20.3 H INR 1.74 H Heparin Anti-Xa Level POC ABG pCO2 POC ABG pO2 Sodium Chloride Carbon Dioxide Creatinine Glucose POC Glucose 113 H 117 H Calcium Total Creatine Kinase CK-MB (CK-2) 04/24/16 04/24/16 04/25/16 11:32 21:11 04:30 WBC RBC Hgb Hct MCV MCH RDW [place] % (Auto) [place] # PT 23.9 H INR 2.13 H Heparin Anti-Xa Level POC ABG pCO2 POC ABG pO2 Sodium Chloride Carbon Dioxide Creatinine Glucose POC Glucose 128 H 118 H Calcium Total Creatine Kinase CK-MB (CK-2) 04/25/16 04/26/16 04/26/16 13:14 03:43 13:42 WBC 11.4 H RBC Hgb Hct MCV 78 L MCH 26 L RDW 17.5 H [place] % (Auto) 7.8 H [place] # 0.9 H PT 26.2 H INR 2.39 H Heparin Anti-Xa Level POC ABG pCO2 POC ABG pO2 Sodium Chloride Carbon Dioxide Creatinine Glucose POC Glucose Calcium Total Creatine Kinase 1088 H CK-MB (CK-2) 04/26/16 04/27/16 04/28/16 13:42 04:10 05:07 WBC RBC Hgb Hct MCV MCH RDW [place] % (Auto) [place] # PT 29.8 H 29.6 H INR 2.82 H 2.79 H Heparin Anti-Xa Level < 0.10 L POC ABG pCO2 POC ABG pO2 Sodium 136 L Chloride Carbon Dioxide Creatinine Glucose 127 H POC Glucose Calcium Total Creatine Kinase CK-MB (CK-2) 04/28/16 04/28/16 05:07 05:07 WBC RBC Hgb Hct MCV 77 L MCH 25 L RDW 17.3 H [place] % (Auto) 7.9 H [place] # PT INR Heparin Anti-Xa Level POC ABG pCO2 POC ABG pO2 Sodium Chloride Carbon Dioxide Creatinine 0.7 L Glucose 109 H POC Glucose Calcium Total Creatine Kinase CK-MB (CK-2)
[2016-04-28] MEDS: ASPIRIN PO SCH (11:01)
[2016-04-28] MEDS: IMDUR PO SCH (11:01)
[2016-04-28] MEDS: LOPRESSOR PO SCH ×2 (11:05→21:51)
--- NOTE | 2016-04-28 11:29 | Progress Note ---
Assessment and Plan Patient has been scheduled for an MRI Friday with anesthesia. Following this, we will await neurology's recommendations regarding the patient's rehabilitation potential. He will likely require at least acute rehabilitation if not long-term rehabilitation. Subjective Date of service: 04/28/16 Principal diagnosis: left foot ischemia Interval history: Patient status post right to left femorofemoral bypass graft. He complains of neurologic pain down his legs with decreased ability to ambulate. Currently awaiting an MRI with sedation on Friday. Arterial ultrasound was performed yesterday which demonstrates that the femorofemoral bypass graft is patent. There is diminutive flow down the patient's leg with diminutive peroneal flow. Patient continues to request IV pain medicine. Objective - Constitutional Vitals: Vital Signs - 12hr 04/27/16 04/28/16 04/28/16 23:43 00:00 02:43 Temperature 98.5 F Pulse Rate 94 H Pulse Rate [ 114 H Apical] Respiratory 20 20 Rate Blood Pressure 129/76 Blood Pressure 121/73 [Right Arm] O2 Sat by Pulse Oximetry 04/28/16 04/28/16 04/28/16 07:49 08:00 11:01 Temperature 98.2 F Pulse Rate 82 Pulse Rate [ 80 Apical] Respiratory 18 Rate Blood Pressure 135/81 Blood Pressure 124/80 [Right Arm] O2 Sat by Pulse 96 97 Oximetry 04/28/16 11:05 Temperature Pulse Rate Pulse Rate [ Apical] Respiratory Rate Blood Pressure 135/81 Blood Pressure [Right Arm] O2 Sat by Pulse Oximetry General appearance: Present: no acute distress - EENT Eyes: PERRL ENT: hearing intact - Neck Neck: normal ROM - Respiratory Respiratory effort: normal - Breasts Breasts: deferred Extremities: abnormal - Gastrointestinal General gastrointestinal: Present: deferred Rectal Exam: deferred - Genitourinary Male genitourinary: deferred - Psychiatric Psychiatric: cooperative - Labs CBC & Chem 7: 04/28/16 05:07 04/28/16 05:07 Labs: Abnormal lab results 04/28/16 04/28/16 04/28/16 Range/Units 05:07 05:07 05:07 MCV 77 L (84-94) fl MCH 25 L (28-32) pg RDW 17.3 H (13.2-15.2) % [place] % (Auto) 7.9 H (0.0-7.3) % PT 29.6 H (12.2-14.9) Sec. INR 2.79 H (0.87-1.13) Creatinine 0.7 L (0.8-1.5) mg/dL Glucose 109 H (75-100) mg/dL
[2016-04-28] MEDS: TRENTAL PO SCH ×4 (14:43→20:38)
[2016-04-28] MEDS: COUMADIN PO SCH (18:20)
--- NOTE | 2016-04-28 18:43 | Progress Note ---
Assessment and Plan Assessment and plan: -- Peripheral vascular disease - status post femoropopliteal bypass 04/19; management per vascular surgery; on vasodilators and anticoagulation --Lower extremity weakness, Neuro workup is in progress, Neurology recommend multiple MRIs , both in-house as well as open MRIs MRI under sedation tomorrow physical therapy occupational therapy and possible acute versus subacute rehabilitation --Type 2 diabetes mellitus moderate control Accu-Chek sliding scale coverage and ADA diet, Lantus insulin, an oral hypoglycemics Closely monitor blood sugars and adjust dose --History of CVA - on dual antiplatelet therapy and statin --Rhabdomyolysis With preserved renal function, gentle IV hydration Closely monitor CK levels --DVT prophylaxis , as she is already on anticoagulation Plan of care discussed with the patient and his nurse History Interval history: Patient seen and evaluated in his room medical records reviewed Complaints of lower extremity weakness Denies any chest pain or shortness of breath Alert awake oriented 3 not in acute distress Vital signs reviewed stable Hospitalist Physical - Constitutional Vitals: Temp Pulse Resp BP Pulse Ox 97.7 F 78 18 122/68 97 04/28/16 15:34 04/28/16 15:34 04/28/16 15:34 04/28/16 15:34 04/28/16 08:00 General appearance: Present: no acute distress, well-nourished, obese - EENT Eyes: Present: PERRL, EOM intact - Neck Neck: Present: supple, normal ROM - Respiratory Respiratory effort: normal Respiratory: bilateral: diminished, negative: rhonchi, wheezing - Cardiovascular Rhythm: regular Heart Sounds: Present: S1 & S2 - Extremities Extremities: no ischemia, No edema - Abdominal General gastrointestinal: soft, non-tender, non-distended, normal bowel sounds - Integumentary Integumentary: Present: clear, warm - Psychiatric Psychiatric: appropriate mood/affect, cooperative - Neurologic Neurologic: moves all extremities (extremity weakness) Results - Labs CBC & Chem 7: 04/28/16 05:07 04/28/16 05:07 Labs: Laboratory Last Values WBC 9.4 K/mm3 (4.5-11.0) 04/28/16 05:07 RBC 5.03 M/mm3 (3.65-5.03) 04/28/16 05:07 Hgb 12.8 gm/dl (11.8-15.2) 04/28/16 05:07 Hct 38.8 % (35.5-45.6) 04/28/16 05:07 MCV 77 fl (84-94) L 04/28/16 05:07 MCH 25 pg (28-32) L 04/28/16 05:07 MCHC 33 % (32-34) 04/28/16 05:07 RDW 17.3 % (13.2-15.2) H 04/28/16 05:07 Plt Count 377 K/mm3 (140-440) 04/28/16 05:07 Lymph % (Auto) 23.4 % (13.4-35.0) 04/28/16 05:07 [place] % (Auto) 7.9 % (0.0-7.3) H 04/28/16 05:07 Eos % (Auto) 1.9 % (0.0-4.3) 04/28/16 05:07 Baso % (Auto) 0.6 % (0.0-1.8) 04/28/16 05:07 Lymph # 2.2 K/mm3 (1.2-5.4) 04/28/16 05:07 [place] # 0.7 K/mm3 (0.0-0.8) 04/28/16 05:07 Eos # 0.2 K/mm3 (0.0-0.4) 04/28/16 05:07 Baso # 0.1 K/mm3 (0.0-0.1) 04/28/16 05:07 Seg Neutrophils % 66.2 % (40.0-70.0) 04/28/16 05:07 Seg Neutrophils # 6.2 K/mm3 (1.8-7.7) 04/28/16 05:07 PT 29.6 Sec. (12.2-14.9) H 04/28/16 05:07 INR 2.79 (0.87-1.13) H 04/28/16 05:07 APTT 24.7 Sec. (24.2-36.6) 04/19/16 15:10 Heparin Anti-Xa Level < 0.10 U.I./ml (0.3-0.7) L 04/27/16 04:10 POC ABG pH 7.447 (7.35-7.45) 04/21/16 16:43 POC ABG pCO2 31.8 (35-45) L 04/21/16 16:43 POC ABG pO2 79 (80-105) L 04/21/16 16:43 POC ABG HCO3 21.9 04/21/16 16:43 POC ABG Total CO2 23 04/21/16 16:43 POC ABG O2 Sat 96 04/21/16 16:43 POC ABG Base Excess -2 04/21/16 16:43 FiO2 2 % 04/21/16 16:43 Sodium 139 mmol/L (137-145) 04/28/16 05:07 Potassium 4.2 mmol/L (3.6-5.0) 04/28/16 05:07 Chloride 102.4 mmol/L (98-107) 04/28/16 05:07 Carbon Dioxide 24 mmol/L (22-30) 04/28/16 05:07 Anion Gap 17 mmol/L 04/28/16 05:07 BUN 12 mg/dL (9-20) 04/28/16 05:07 Creatinine 0.7 mg/dL (0.8-1.5) L 04/28/16 05:07 Estimated GFR > 60 ml/min 04/28/16 05:07 BUN/Creatinine Ratio 17.14 % 04/28/16 05:07 Glucose 109 mg/dL (75-100) H 04/28/16 05:07 POC Glucose 118 (70-105) H 04/24/16 21:11 Calcium 8.7 mg/dL (8.4-10.2) 04/28/16 05:07 Total Creatine Kinase 1088 units/L (55-170) H 04/25/16 13:14 CK-MB (CK-2) 13.4 ng/mL (0.0-4.0) H 04/21/16 14:43 CK-MB (CK-2) Rel Index 0.1 (0-4) 04/21/16 14:43 Troponin T < 0.010 ng/mL (0.00-0.029) 04/21/16 14:43 Blood Type B POSITIVE 04/16/16 12:30 Antibody Screen Negative 04/16/16 12:30
[2016-04-28] MEDS: LEVEMIR SUB-Q SCH (21:53)
[2016-04-28] MEDS: AMBIEN PO PRN (22:00)
[2016-04-29 07:19] LABS: INR 2.71 (0.87-1.13)
--- NOTE | 2016-04-29 07:43 | Vascular Lab Report ---
LOWER EXTREMITY ARTERIAL DUPLEX: REASON FOR EXAM: Peripheral arterial disease. COMMENTS ON THE RIGHT: Monophasic waveforms are seen in the right to left femoral-femoral bypass graft proximally. Monophasic waveforms are seen distally. Diffuse plaque identified throughout the vessels.. No focal significant plaque is identified. Findings are consistent with abnormal perfusion. Findings are inconsistent with the ability to heal distal wounds. COMMENTS ON THE LEFT: Monophasic waveforms are seen proximally. Monophasic waveforms are seen distally. Patent left femoral-popliteal bypass graft with monophasic flow. Diffuse scattered plaque identified throughout the extremity. Findings are consistent with abnormal perfusion. Findings are inconsistent with the ability to heal distal wounds. IMPRESSION: RIGHT: Patent right to left femoral-femoral bypass graft with monophasic flow throughout. LEFT:Patent left femoral-popliteal bypass graft with monophasic flow throughout. Overall quality of low suggest abnormal perfusion bilaterally. Clinical correlation recommended.
[2016-04-29] MEDS: NOVOLOG SUB-Q SCH ×4 (08:00→23:38)
[2016-04-29] MEDS: PERCOCET 5/325 PO PRN ×3 (09:39→22:08)
[2016-04-29] MEDS: PLAVIX PO SCH (10:45)
[2016-04-29] MEDS: ASPIRIN PO SCH (10:45)
[2016-04-29] MEDS: IMDUR PO SCH (10:45)
[2016-04-29] MEDS: LOPRESSOR PO SCH ×2 (10:46→22:26)
[2016-04-29] MEDS: LYRICA PO SCH ×3 (10:46→22:05)
[2016-04-29] MEDS: GLUCOTROL XL PO SCH (10:47)
[2016-04-29] MEDS: GLUCOPHAGE PO SCH ×2 (10:47→17:42)
[2016-04-29] MEDS: TRENTAL PO SCH ×3 (10:47→22:05)
[2016-04-29] MEDS ORDERED: VERSED IV ONE (12:36)
[2016-04-29] MEDS ORDERED: SUBLIMAZE ONE (12:37)
[2016-04-29] MEDS ORDERED: DIPRIVAN 10 MG/ML IV ONE ×3 (12:37)
--- NOTE | 2016-04-29 12:38 | Progress Note ---
Assessment and Plan Assessment and plan: --Lower extremity weakness, MRI under sedation today versus open MRI Neurology following, physical therapy occupational therapy possible acute versus subacute rehabilitation when medically stable -- Peripheral vascular disease - status post femoropopliteal bypass 04/19; management per vascular surgery; on vasodilators and anticoagulation Therapeutic INR --Type 2 diabetes mellitus well controlled Accu-Chek sliding scale coverage and ADA diet, Lantus insulin, an oral hypoglycemics Closely monitor blood sugars and adjust dose --History of CVA - on dual antiplatelet therapy and statin --Rhabdomyolysis Improved --DVT prophylaxis , as she is already on anticoagulation Plan of care discussed with the patient and his nurse History Interval history: Patient seen and evaluated in his room this morning medical records reviewed No overnight events reported by the nursing staff Patient is scheduled for MRI under anesthesia today He feels better denies any chest pain shortness of breath continues to have lower extremity weakness Hospitalist Physical - Constitutional Vitals: Temp Pulse Resp BP Pulse Ox 84 F L 84 22 128/81 95 04/29/16 07:57 04/29/16 07:57 04/29/16 10:00 04/29/16 07:57 04/29/16 07:57 General appearance: Present: no acute distress, well-nourished, obese - EENT Eyes: Present: PERRL, EOM intact - Neck Neck: Present: supple, normal ROM - Respiratory Respiratory effort: normal Respiratory: negative: rales, rhonchi, wheezing - Cardiovascular Rhythm: regular Heart Sounds: Present: S1 & S2 - Extremities Extremities: abnormal (s/p femoropopliteal bypass) - Abdominal General gastrointestinal: soft, non-tender, non-distended, normal bowel sounds - Integumentary Integumentary: Present: clear, warm - Psychiatric Psychiatric: appropriate mood/affect, cooperative - Neurologic Neurologic: other (bilateral lower extremity weakness) Results - Labs CBC & Chem 7: 04/28/16 05:07 04/28/16 05:07 Labs: Laboratory Last Values WBC 9.4 K/mm3 (4.5-11.0) 04/28/16 05:07 RBC 5.03 M/mm3 (3.65-5.03) 04/28/16 05:07 Hgb 12.8 gm/dl (11.8-15.2) 04/28/16 05:07 Hct 38.8 % (35.5-45.6) 04/28/16 05:07 MCV 77 fl (84-94) L 04/28/16 05:07 MCH 25 pg (28-32) L 04/28/16 05:07 MCHC 33 % (32-34) 04/28/16 05:07 RDW 17.3 % (13.2-15.2) H 04/28/16 05:07 Plt Count 377 K/mm3 (140-440) 04/28/16 05:07 Lymph % (Auto) 23.4 % (13.4-35.0) 04/28/16 05:07 [place] % (Auto) 7.9 % (0.0-7.3) H 04/28/16 05:07 Eos % (Auto) 1.9 % (0.0-4.3) 04/28/16 05:07 Baso % (Auto) 0.6 % (0.0-1.8) 04/28/16 05:07 Lymph # 2.2 K/mm3 (1.2-5.4) 04/28/16 05:07 [place] # 0.7 K/mm3 (0.0-0.8) 04/28/16 05:07 Eos # 0.2 K/mm3 (0.0-0.4) 04/28/16 05:07 Baso # 0.1 K/mm3 (0.0-0.1) 04/28/16 05:07 Seg Neutrophils % 66.2 % (40.0-70.0) 04/28/16 05:07 Seg Neutrophils # 6.2 K/mm3 (1.8-7.7) 04/28/16 05:07 PT 28.9 Sec. (12.2-14.9) H 04/29/16 06:07 INR 2.71 (0.87-1.13) H 04/29/16 06:07 APTT 24.7 Sec. (24.2-36.6) 04/19/16 15:10 Heparin Anti-Xa Level < 0.10 U.I./ml (0.3-0.7) L 04/27/16 04:10 POC ABG pH 7.447 (7.35-7.45) 04/21/16 16:43 POC ABG pCO2 31.8 (35-45) L 04/21/16 16:43 POC ABG pO2 79 (80-105) L 04/21/16 16:43 POC ABG HCO3 21.9 04/21/16 16:43 POC ABG Total CO2 23 04/21/16 16:43 POC ABG O2 Sat 96 04/21/16 16:43 POC ABG Base Excess -2 04/21/16 16:43 FiO2 2 % 04/21/16 16:43 Sodium 139 mmol/L (137-145) 04/28/16 05:07 Potassium 4.2 mmol/L (3.6-5.0) 04/28/16 05:07 Chloride 102.4 mmol/L (98-107) 04/28/16 05:07 Carbon Dioxide 24 mmol/L (22-30) 04/28/16 05:07 Anion Gap 17 mmol/L 04/28/16 05:07 BUN 12 mg/dL (9-20) 04/28/16 05:07 Creatinine 0.7 mg/dL (0.8-1.5) L 04/28/16 05:07 Estimated GFR > 60 ml/min 04/28/16 05:07 BUN/Creatinine Ratio 17.14 % 04/28/16 05:07 Glucose 109 mg/dL (75-100) H 04/28/16 05:07 POC Glucose 112 (70-105) H 04/29/16 11:32 Calcium 8.7 mg/dL (8.4-10.2) 04/28/16 05:07 Total Creatine Kinase 1088 units/L (55-170) H 04/25/16 13:14 CK-MB (CK-2) 13.4 ng/mL (0.0-4.0) H 04/21/16 14:43 CK-MB (CK-2) Rel Index 0.1 (0-4) 04/21/16 14:43 Troponin T < 0.010 ng/mL (0.00-0.029) 04/21/16 14:43 Blood Type B POSITIVE 04/16/16 12:30 Antibody Screen Negative 04/16/16 12:30
--- NOTE | 2016-04-29 13:04 | Progress Note ---
Subjective Date of service: 04/29/16 Principal diagnosis: left foot ischemia Interval history: Patient is too large to fit into the MRI machine. Verified by myself, nurse comber setter, and MRI technicians. Objective - Constitutional Vitals: Vital Signs - 12hr 04/29/16 04/29/16 04/29/16 03:00 07:57 10:00 Temperature 84 F L Pulse Rate [ 84 Right Radial] Respiratory 18 18 Rate Respiratory 22 Rate [Left Calf ] Blood Pressure 128/81 [Right Arm] O2 Sat by Pulse 95 Oximetry - Labs CBC & Chem 7: 04/28/16 05:07 04/28/16 05:07 Labs: Abnormal lab results 04/25/16 04/25/16 04/25/16 Range/Units 06:29 08:39 11:24 PT (12.2-14.9) Sec. INR (0.87-1.13) POC Glucose 129 H 161 H 172 H (70-105) 04/25/16 04/26/16 04/26/16 Range/Units 17:04 06:25 11:12 PT (12.2-14.9) Sec. INR (0.87-1.13) POC Glucose 124 H 128 H 153 H (70-105) 04/26/16 04/26/16 04/27/16 Range/Units 15:58 21:23 06:27 PT (12.2-14.9) Sec. INR (0.87-1.13) POC Glucose 141 H 109 H 113 H (70-105) 04/27/16 04/28/16 04/29/16 Range/Units 11:38 11:02 06:07 PT 28.9 H (12.2-14.9) Sec. INR 2.71 H (0.87-1.13) POC Glucose 128 H 125 H (70-105) 04/29/16 Range/Units 11:32 PT (12.2-14.9) Sec. INR (0.87-1.13) POC Glucose 112 H (70-105)
[2016-04-29] MEDS: XANAX PO PRN (14:50)
[2016-04-29] MEDS: BENADRYL PO PRN (14:50)
--- NOTE | 2016-04-29 15:47 | Progress Note ---
Assessment and Plan Pt attempted MRI earlier today with anesthesia available for sedation/GET if needed. Unfortunately, Pt was unable to fit in the MRI. Arrangements for and Outside facility Open MRI are underway. Await results. D/c planning for Rehab in progress. - Patient Problems (1) Atherosclerosis of [place] arteries of extremity with rest pain Current Visit: Yes Status: Acute Qualifiers: Peripheral atherosclerosis location: P Laterality: L (2) Paresthesia of bilateral legs Current Visit: Yes Status: Acute Subjective Date of service: 04/29/16 Principal diagnosis: left foot ischemia Interval history: Pt awake. Continued LLE calf pain, but much improved. Objective - Constitutional Vitals: Vital Signs - 12hr 04/29/16 04/29/16 07:57 10:00 Temperature 84 F L Pulse Rate [ 84 Right Radial] Respiratory 18 Rate Respiratory 22 Rate [Left Calf ] Blood Pressure 128/81 [Right Arm] O2 Sat by Pulse 95 Oximetry General appearance: Present: no acute distress - EENT Eyes: EOM intact ENT: hearing intact - Respiratory Respiratory effort: normal Extremities: no ischemia, normal temperature - Neurologic Neurologic: other (continued bilat Lower ext numbness) - Psychiatric Psychiatric: appropriate mood/affect, intact judgment & insight, cooperative - Labs CBC & Chem 7: 04/28/16 05:07 04/28/16 05:07 Labs: Abnormal lab results 04/25/16 04/25/16 04/25/16 Range/Units 06:29 08:39 11:24 PT (12.2-14.9) Sec. INR (0.87-1.13) POC Glucose 129 H 161 H 172 H (70-105) 04/25/16 04/26/16 04/26/16 Range/Units 17:04 06:25 11:12 PT (12.2-14.9) Sec. INR (0.87-1.13) POC Glucose 124 H 128 H 153 H (70-105) 04/26/16 04/26/16 04/27/16 Range/Units 15:58 21:23 06:27 PT (12.2-14.9) Sec. INR (0.87-1.13) POC Glucose 141 H 109 H 113 H (70-105) 04/27/16 04/28/16 04/29/16 Range/Units 11:38 11:02 06:07 PT 28.9 H (12.2-14.9) Sec. INR 2.71 H (0.87-1.13) POC Glucose 128 H 125 H (70-105) 04/29/16 Range/Units 11:32 PT (12.2-14.9) Sec. INR (0.87-1.13) POC Glucose 112 H (70-105)
[2016-04-29] MEDS: COUMADIN PO SCH (18:00)
[2016-04-29] MEDS: LEVEMIR SUB-Q SCH (22:10)
--- NOTE | 2016-04-29 22:14 | Progress Note ---
Assessment and Plan Patient alert,awake. No complaint of chest pain or shortness of breath.O2 satuaration 95% on room air. Cpmplaining leg pains.Patient said he has part of MRI scan today. - Patient Problems (1) Atherosclerosis of [place] arteries of extremity with rest pain Current Visit: Yes Status: Acute Qualifiers: Peripheral atherosclerosis location: P Laterality: L Plan to address problem: Management as per vascular surgery. Patient is on coumadin. Plavix, aspirin and trental Dulex studies of legs results pending. (2) PAD (peripheral artery disease) Current Visit: Yes Status: Chronic Plan to address problem: Management as per vascular surgery. Patient is on coumadin Plavix, aspirin and trental.. (3) Uncontrolled diabetes mellitus Current Visit: Yes Status: Chronic Qualifiers: Diabetes mellitus type: type 2 Diabetes mellitus complication status: with circulatory complication Diabetes mellitus complication detail: with other circulatory complications Diabetic retinopathy severity: D Diabetes mellitus macular edema: D Diabetes mellitus penitentiary insulin use: without penitentiary use Chronic kidney disease stage: C Qualified Code(s): E11.59 - Type 2 diabetes mellitus with other circulatory complications; E11.65 - Type 2 diabetes mellitus with hyperglycemia Plan to address problem: Management as per primary care. Subjective Date of service: 04/29/16 Principal diagnosis: left foot ischemia Interval history: Patient alert,awake. No complaint of chest pain or shortness of breath.O2 satuaration 95% on room air. Cpmplaining leg pains.Patient said he has part of MRI scan today. Objective Vital Signs - 12hr 04/29/16 04/29/16 16:00 22:08 Temperature 97.6 F Pulse Rate [ 75 Right Radial] Respiratory 20 20 Rate Blood Pressure 125/77 [Right Arm] O2 Sat by Pulse 95 Oximetry Constitutional: no acute distress, alert Eyes: non-icteric ENT: oropharynx moist Neck: supple, no lymphadenopathy Effort: normal Ascultation: Bilateral: diminished breath sounds Cardiovascular: regular rate and rhythm Gastrointestinal: normoactive bowel sounds, soft, non-tender, non-distended Integumentary: other (PVD cghanges with sparse haior and pigmentation) Extremities: no cyanosis, edema (trace) Neurologic: normal mental status, non-focal exam, pupils equal and round, motor strength normal and Psychiatric: mood appropriate, affect normal CBC and BMP: 04/28/16 05:07 04/28/16 05:07 ABG, PT/INR, D-dimer: ABG POC ABG pH 7.447 (7.35-7.45) 04/21/16 16:43 POC ABG pCO2 31.8 (35-45) L 04/21/16 16:43 POC ABG pO2 79 (80-105) L 04/21/16 16:43 POC ABG HCO3 21.9 04/21/16 16:43 POC ABG Total CO2 23 04/21/16 16:43 POC ABG O2 Sat 96 04/21/16 16:43 PT/INR, D-dimer PT 28.9 Sec. (12.2-14.9) H 04/29/16 06:07 INR 2.71 (0.87-1.13) H 04/29/16 06:07 Abnormal lab findings: Abnormal Labs 04/16/16 04/16/16 04/16/16 12:30 12:30 12:30 WBC RBC 6.37 H Hgb 16.5 H Hct 48.8 H MCV 77 L MCH 26 L RDW 16.9 H [place] % (Auto) 8.4 H [place] # PT 16.6 H INR 1.35 H Heparin Anti-Xa Level POC ABG pCO2 POC ABG pO2 Sodium 136 L Chloride 96.3 L Carbon Dioxide Creatinine Glucose 285 H POC Glucose Calcium Total Creatine Kinase CK-MB (CK-2) 04/19/16 04/19/16 04/19/16 07:03 14:01 15:02 WBC RBC Hgb Hct MCV MCH RDW [place] % (Auto) [place] # PT INR Heparin Anti-Xa Level POC ABG pCO2 POC ABG pO2 Sodium Chloride Carbon Dioxide Creatinine Glucose POC Glucose 213 H 388 H 415 H Calcium Total Creatine Kinase CK-MB (CK-2) 04/19/16 04/19/16 04/19/16 15:10 15:10 16:55 WBC 16.8 H RBC 5.94 H Hgb Hct 46.3 H MCV 78 L MCH 25 L RDW 17.1 H [place] % (Auto) [place] # PT INR Heparin Anti-Xa Level 0.11 L POC ABG pCO2 POC ABG pO2 Sodium Chloride Carbon Dioxide Creatinine Glucose POC Glucose 310 H Calcium Total Creatine Kinase CK-MB (CK-2) 04/19/16 04/19/16 04/20/16 17:55 22:55 03:08 WBC RBC Hgb Hct MCV MCH RDW [place] % (Auto) [place] # PT INR Heparin Anti-Xa Level POC ABG pCO2 POC ABG pO2 Sodium 136 L 136 L Chloride 97.6 L 95.7 L Carbon Dioxide 19 L Creatinine Glucose 365 H 320 H POC Glucose 255 H Calcium 8.0 L 7.9 L Total Creatine Kinase CK-MB (CK-2) 04/20/16 04/20/16 04/20/16 03:08 03:08 11:51 WBC RBC Hgb Hct MCV MCH RDW [place] % (Auto) [place] # PT 15.3 H INR 1.22 H Heparin Anti-Xa Level 1.18 H POC ABG pCO2 POC ABG pO2 Sodium Chloride Carbon Dioxide Creatinine Glucose POC Glucose 277 H Calcium Total Creatine Kinase CK-MB (CK-2) 04/20/16 04/20/16 04/20/16 13:10 15:27 21:55 WBC RBC Hgb Hct MCV MCH RDW [place] % (Auto) [place] # PT INR Heparin Anti-Xa Level 0.89 H POC ABG pCO2 POC ABG pO2 Sodium Chloride Carbon Dioxide Creatinine Glucose POC Glucose 282 H 243 H Calcium Total Creatine Kinase CK-MB (CK-2) 04/21/16 04/21/16 04/21/16 06:37 12:18 14:43 WBC RBC Hgb Hct MCV MCH RDW [place] % (Auto) [place] # PT INR Heparin Anti-Xa Level POC ABG pCO2 POC ABG pO2 Sodium Chloride Carbon Dioxide Creatinine Glucose POC Glucose 216 H 200 H Calcium Total Creatine Kinase 8731 H CK-MB (CK-2) 13.4 H 04/21/16 04/21/16 04/21/16 15:54 16:43 17:53 WBC RBC Hgb Hct MCV MCH RDW [place] % (Auto) [place] # PT INR Heparin Anti-Xa Level 0.12 L POC ABG pCO2 31.8 L POC ABG pO2 79 L Sodium Chloride Carbon Dioxide Creatinine Glucose POC Glucose 189 H Calcium Total Creatine Kinase CK-MB (CK-2) 04/21/16 04/22/16 04/22/16 21:20 02:43 02:43 WBC RBC Hgb Hct MCV MCH RDW [place] % (Auto) [place] # PT 15.5 H INR 1.24 H Heparin Anti-Xa Level 0.21 L POC ABG pCO2 POC ABG pO2 Sodium Chloride Carbon Dioxide Creatinine Glucose POC Glucose 183 H Calcium Total Creatine Kinase CK-MB (CK-2) 04/22/16 04/22/16 04/22/16 07:42 07:53 11:43 WBC RBC Hgb Hct MCV MCH RDW [place] % (Auto) [place] # PT INR Heparin Anti-Xa Level 0.22 L POC ABG pCO2 POC ABG pO2 Sodium Chloride Carbon Dioxide Creatinine Glucose POC Glucose 179 H 197 H Calcium Total Creatine Kinase CK-MB (CK-2) 04/22/16 04/22/16 04/22/16 16:36 17:13 21:06 WBC RBC Hgb Hct MCV MCH RDW [place] % (Auto) [place] # PT INR Heparin Anti-Xa Level 0.29 L POC ABG pCO2 POC ABG pO2 Sodium Chloride Carbon Dioxide Creatinine Glucose POC Glucose 200 H 146 H Calcium Total Creatine Kinase CK-MB (CK-2) 04/23/16 04/23/16 04/23/16 05:37 06:09 11:06 WBC RBC Hgb Hct MCV MCH RDW [place] % (Auto) [place] # PT 15.8 H INR 1.27 H Heparin Anti-Xa Level POC ABG pCO2 POC ABG pO2 Sodium Chloride Carbon Dioxide Creatinine Glucose POC Glucose 129 H 160 H Calcium Total Creatine Kinase CK-MB (CK-2) 04/23/16 04/24/16 04/24/16 21:08 05:20 06:17 WBC RBC Hgb Hct MCV MCH RDW [place] % (Auto) [place] # PT 20.3 H INR 1.74 H Heparin Anti-Xa Level POC ABG pCO2 POC ABG pO2 Sodium Chloride Carbon Dioxide Creatinine Glucose POC Glucose 113 H 117 H Calcium Total Creatine Kinase CK-MB (CK-2) 04/24/16 04/24/16 04/25/16 11:32 21:11 04:30 WBC RBC Hgb Hct MCV MCH RDW [place] % (Auto) [place] # PT 23.9 H INR 2.13 H Heparin Anti-Xa Level POC ABG pCO2 POC ABG pO2 Sodium Chloride Carbon Dioxide Creatinine Glucose POC Glucose 128 H 118 H Calcium Total Creatine Kinase CK-MB (CK-2) 04/25/16 04/25/16 04/25/16 06:29 08:39 11:24 WBC RBC Hgb Hct MCV MCH RDW [place] % (Auto) [place] # PT INR Heparin Anti-Xa Level POC ABG pCO2 POC ABG pO2 Sodium Chloride Carbon Dioxide Creatinine Glucose POC Glucose 129 H 161 H 172 H Calcium Total Creatine Kinase CK-MB (CK-2) 04/25/16 04/25/16 04/26/16 13:14 17:04 03:43 WBC RBC Hgb Hct MCV MCH RDW [place] % (Auto) [place] # PT 26.2 H INR 2.39 H Heparin Anti-Xa Level POC ABG pCO2 POC ABG pO2 Sodium Chloride Carbon Dioxide Creatinine Glucose POC Glucose 124 H Calcium Total Creatine Kinase 1088 H CK-MB (CK-2) 04/26/16 04/26/16 04/26/16 06:25 11:12 13:42 WBC 11.4 H RBC Hgb Hct MCV 78 L MCH 26 L RDW 17.5 H [place] % (Auto) 7.8 H [place] # 0.9 H PT INR Heparin Anti-Xa Level POC ABG pCO2 POC ABG pO2 Sodium Chloride Carbon Dioxide Creatinine Glucose POC Glucose 128 H 153 H Calcium Total Creatine Kinase CK-MB (CK-2) 04/26/16 04/26/16 04/26/16 13:42 15:58 21:23 WBC RBC Hgb Hct MCV MCH RDW [place] % (Auto) [place] # PT INR Heparin Anti-Xa Level POC ABG pCO2 POC ABG pO2 Sodium 136 L Chloride Carbon Dioxide Creatinine Glucose 127 H POC Glucose 141 H 109 H Calcium Total Creatine Kinase CK-MB (CK-2) 04/27/16 04/27/16 04/27/16 04:10 06:27 11:38 WBC RBC Hgb Hct MCV MCH RDW [place] % (Auto) [place] # PT 29.8 H INR 2.82 H Heparin Anti-Xa Level < 0.10 L POC ABG pCO2 POC ABG pO2 Sodium Chloride Carbon Dioxide Creatinine Glucose POC Glucose 113 H 128 H Calcium Total Creatine Kinase CK-MB (CK-2) 04/28/16 04/28/16 04/28/16 05:07 05:07 05:07 WBC RBC Hgb Hct MCV 77 L MCH 25 L RDW 17.3 H [place] % (Auto) 7.9 H [place] # PT 29.6 H INR 2.79 H Heparin Anti-Xa Level POC ABG pCO2 POC ABG pO2 Sodium Chloride Carbon Dioxide Creatinine 0.7 L Glucose 109 H POC Glucose Calcium Total Creatine Kinase CK-MB (CK-2) 04/28/16 04/29/16 04/29/16 11:02 06:07 11:32 WBC RBC Hgb Hct MCV MCH RDW [place] % (Auto) [place] # PT 28.9 H INR 2.71 H Heparin Anti-Xa Level POC ABG pCO2 POC ABG pO2 Sodium Chloride Carbon Dioxide Creatinine Glucose POC Glucose 125 H 112 H Calcium Total Creatine Kinase CK-MB (CK-2) 04/29/16 21:31 WBC RBC Hgb Hct MCV MCH RDW [place] % (Auto) [place] # PT INR Heparin Anti-Xa Level POC ABG pCO2 POC ABG pO2 Sodium Chloride Carbon Dioxide Creatinine Glucose POC Glucose 117 H Calcium Total Creatine Kinase CK-MB (CK-2)
[2016-04-29] MEDS: AMBIEN PO PRN (22:24)
[2016-04-30 05:48] LABS: INR 2.79 (0.87-1.13)
[2016-04-30] MEDS: PERCOCET 5/325 PO PRN ×3 (06:49→22:28)
[2016-04-30] MEDS: XANAX PO PRN (06:51)
[2016-04-30] MEDS: NOVOLOG SUB-Q SCH ×4 (08:28→22:30)
[2016-04-30] MEDS: LOPRESSOR PO SCH ×2 (10:25→22:26)
[2016-04-30] MEDS: GLUCOPHAGE PO SCH ×2 (10:26→17:21)
[2016-04-30] MEDS: LYRICA PO SCH ×3 (10:27→19:49)
[2016-04-30] MEDS: PLAVIX PO SCH (10:27)
[2016-04-30] MEDS: IMDUR PO SCH (10:27)
[2016-04-30] MEDS: TRENTAL PO SCH ×3 (10:27→19:49)
[2016-04-30] MEDS: ASPIRIN PO SCH (10:27)
[2016-04-30] MEDS: GLUCOTROL XL PO SCH (10:35)
--- NOTE | 2016-04-30 13:34 | Progress Note ---
Assessment and Plan Assessment and plan: -- Peripheral vascular disease - status post femoropopliteal bypass 04/19; management per vascular surgery; on vasodilators and anticoagulation Therapeutic INR --Lower extremity weakness, Underwent multiple open MRI pending report Neurology following, physical therapy occupational therapy possible acute versus subacute rehabilitation when medically stable --Type 2 diabetes mellitus well controlled Accu-Chek sliding scale coverage and ADA diet, Lantus insulin, an oral hypoglycemics Closely monitor blood sugars and adjust dose --History of CVA - on dual antiplatelet therapy and statin --Rhabdomyolysis With preserved renal function, gentle IV hydration Closely monitor CK levels --DVT prophylaxis , as she is already on anticoagulation Plan of care discussed with the patient and his nurse History Interval history: patient seen and evaluated in his room medical records reviewed Underwent multiple open MRIs, awaiting report No new complaints Family member at the bedside Alert awake oriented 3 not in acute distress Hospitalist Physical - Constitutional Vitals: Temp Pulse Resp BP Pulse Ox 98.0 F 81 18 127/84 98 04/30/16 07:50 04/30/16 10:27 04/30/16 10:00 04/30/16 10:27 04/30/16 07:50 General appearance: Present: no acute distress, well-nourished - EENT Eyes: Present: PERRL, EOM intact - Neck Neck: Present: supple, normal ROM - Respiratory Respiratory effort: normal Respiratory: negative: diminished, rales, rhonchi, wheezing - Cardiovascular Rhythm: regular Heart Sounds: Present: S1 & S2 - Extremities Extremities: no ischemia, pulses intact - Abdominal General gastrointestinal: soft, non-tender, non-distended, normal bowel sounds - Integumentary Integumentary: Present: clear, warm - Psychiatric Psychiatric: appropriate mood/affect, cooperative - Neurologic Neurologic: CNII-XII intact, moves all extremities Results - Labs CBC & Chem 7: 04/28/16 05:07 04/28/16 05:07 Labs: Laboratory Last Values WBC 9.4 K/mm3 (4.5-11.0) 04/28/16 05:07 RBC 5.03 M/mm3 (3.65-5.03) 04/28/16 05:07 Hgb 12.8 gm/dl (11.8-15.2) 04/28/16 05:07 Hct 38.8 % (35.5-45.6) 04/28/16 05:07 MCV 77 fl (84-94) L 04/28/16 05:07 MCH 25 pg (28-32) L 04/28/16 05:07 MCHC 33 % (32-34) 04/28/16 05:07 RDW 17.3 % (13.2-15.2) H 04/28/16 05:07 Plt Count 377 K/mm3 (140-440) 04/28/16 05:07 Lymph % (Auto) 23.4 % (13.4-35.0) 04/28/16 05:07 [place] % (Auto) 7.9 % (0.0-7.3) H 04/28/16 05:07 Eos % (Auto) 1.9 % (0.0-4.3) 04/28/16 05:07 Baso % (Auto) 0.6 % (0.0-1.8) 04/28/16 05:07 Lymph # 2.2 K/mm3 (1.2-5.4) 04/28/16 05:07 [place] # 0.7 K/mm3 (0.0-0.8) 04/28/16 05:07 Eos # 0.2 K/mm3 (0.0-0.4) 04/28/16 05:07 Baso # 0.1 K/mm3 (0.0-0.1) 04/28/16 05:07 Seg Neutrophils % 66.2 % (40.0-70.0) 04/28/16 05:07 Seg Neutrophils # 6.2 K/mm3 (1.8-7.7) 04/28/16 05:07 PT 29.6 Sec. (12.2-14.9) H 04/30/16 04:59 INR 2.79 (0.87-1.13) H 04/30/16 04:59 APTT 24.7 Sec. (24.2-36.6) 04/19/16 15:10 Heparin Anti-Xa Level < 0.10 U.I./ml (0.3-0.7) L 04/27/16 04:10 POC ABG pH 7.447 (7.35-7.45) 04/21/16 16:43 POC ABG pCO2 31.8 (35-45) L 04/21/16 16:43 POC ABG pO2 79 (80-105) L 04/21/16 16:43 POC ABG HCO3 21.9 04/21/16 16:43 POC ABG Total CO2 23 04/21/16 16:43 POC ABG O2 Sat 96 04/21/16 16:43 POC ABG Base Excess -2 04/21/16 16:43 FiO2 2 % 04/21/16 16:43 Sodium 139 mmol/L (137-145) 04/28/16 05:07 Potassium 4.2 mmol/L (3.6-5.0) 04/28/16 05:07 Chloride 102.4 mmol/L (98-107) 04/28/16 05:07 Carbon Dioxide 24 mmol/L (22-30) 04/28/16 05:07 Anion Gap 17 mmol/L 04/28/16 05:07 BUN 12 mg/dL (9-20) 04/28/16 05:07 Creatinine 0.7 mg/dL (0.8-1.5) L 04/28/16 05:07 Estimated GFR > 60 ml/min 04/28/16 05:07 BUN/Creatinine Ratio 17.14 % 04/28/16 05:07 Glucose 109 mg/dL (75-100) H 04/28/16 05:07 POC Glucose 211 (70-105) H 04/30/16 10:49 Calcium 8.7 mg/dL (8.4-10.2) 04/28/16 05:07 Total Creatine Kinase 261 units/L (55-170) H 04/30/16 04:59 CK-MB (CK-2) 13.4 ng/mL (0.0-4.0) H 04/21/16 14:43 CK-MB (CK-2) Rel Index 0.1 (0-4) 04/21/16 14:43 Troponin T < 0.010 ng/mL (0.00-0.029) 04/21/16 14:43 Blood Type B POSITIVE 04/16/16 12:30 Antibody Screen Negative 04/16/16 12:30
--- NOTE | 2016-04-30 15:18 | Progress Note ---
Assessment and Plan The patient is status post right femoral artery to left [place] artery bypass. His legs are well perfused and he continues to improve as far as pain. The results of his MRI are pending as well as the completion of his neurology consult. At this point the patient continues to remain fairly nonambulatory secondary to pain and numbness however I believe he would benefit from transferring to rehabilitation. Physical therapy continues to work the patient and hopefully he will be able to be transferred at some point this week. Subjective Date of service: 04/30/16 Principal diagnosis: left foot ischemia Interval history: The patient states that his pain is improving however he continues to state that he is unable to ambulate. The patient has several of his MRI studies performed yesterday and the remaining study was performed today. The results of his MRI are currently pending. He has no other complaints at this time. Objective - Constitutional Vitals: Vital Signs - 12hr 04/30/16 04/30/16 04/30/16 06:49 07:50 10:00 Temperature 98.0 F Pulse Rate Pulse Rate [ 79 Right Radial] Respiratory 20 20 18 Rate Blood Pressure Blood Pressure 135/89 [Right Arm] O2 Sat by Pulse 98 Oximetry 04/30/16 04/30/16 10:25 10:27 Temperature Pulse Rate 81 81 Pulse Rate [ Right Radial] Respiratory Rate Blood Pressure 127/84 127/84 Blood Pressure [Right Arm] O2 Sat by Pulse Oximetry General appearance: Present: no acute distress - Neck Neck: supple - Respiratory Respiratory effort: normal - Breasts Breasts: deferred - Cardiovascular Rhythm: regular Extremities: no ischemia, normal temperature (the patient's lower extremities are well perfused with excellent capillary refill), abnormal (incisions are clean dry and intact) - Gastrointestinal General gastrointestinal: Present: soft, non-tender, non-distended - Genitourinary Male genitourinary: deferred - Labs CBC & Chem 7: 04/28/16 05:07 04/28/16 05:07 Labs: Abnormal lab results 04/29/16 04/29/16 04/30/16 Range/Units 11:32 21:31 04:59 PT 29.6 H (12.2-14.9) Sec. INR 2.79 H (0.87-1.13) POC Glucose 112 H 117 H (70-105) Total Creatine Kinase (55-170) units/L 04/30/16 04/30/16 04/30/16 Range/Units 04:59 05:57 10:49 PT (12.2-14.9) Sec. INR (0.87-1.13) POC Glucose 123 H 211 H (70-105) Total Creatine Kinase 261 H (55-170) units/L
--- NOTE | 2016-04-30 17:04 | Event Note ---
Date: 04/30/16 IRU follow-up; Case discussed with Vascular Surgery team. MRIs reviewed, however pending F/U Neurology input. No acute cord compression noted. Results also reviewed with the patient. Pt continues with difficulty ambulating; transferred today with PT Angy, unable to take any steps. Will resubmit for pre-certification to admit to IRU; continue to follow.
[2016-04-30] MEDS: COUMADIN PO SCH (17:21)
--- NOTE | 2016-04-30 20:43 | Progress Note ---
Assessment and Plan Patient alert,awake. No complaint of chest pain or shortness of breath.O2 satuaration 98% on room air. Cpmplaining leg pains.Patient said he finished his MRI scan of legs today. - Patient Problems (1) Atherosclerosis of [place] arteries of extremity with rest pain Current Visit: Yes Status: Acute Qualifiers: Peripheral atherosclerosis location: P Laterality: L Plan to address problem: Management as per vascular surgery. Patient is on coumadin. Plavix, aspirin and trental Dulex studies of legs results pending. (2) PAD (peripheral artery disease) Current Visit: Yes Status: Chronic Plan to address problem: Management as per vascular surgery. Patient is on coumadin Plavix, aspirin and trental.. (3) Uncontrolled diabetes mellitus Current Visit: Yes Status: Chronic Qualifiers: Diabetes mellitus type: type 2 Diabetes mellitus complication status: with circulatory complication Diabetes mellitus complication detail: with other circulatory complications Diabetic retinopathy severity: D Diabetes mellitus macular edema: D Diabetes mellitus intermediate teacher insulin use: without senior living use Chronic kidney disease stage: C Qualified Code(s): E11.59 - Type 2 diabetes mellitus with other circulatory complications; E11.65 - Type 2 diabetes mellitus with hyperglycemia Plan to address problem: Management as per primary care. Subjective Date of service: 04/30/16 Principal diagnosis: left foot ischemia Interval history: Patient alert,awake. No complaint of chest pain or shortness of breath.O2 satuaration 98% on room air. Cpmplaining leg pains. Patient said he finished his MRI scan of legs today. Objective Vital Signs - 12hr 04/30/16 04/30/16 04/30/16 10:00 10:25 10:27 Temperature Pulse Rate 81 81 Pulse Rate [ Right Radial] Respiratory 18 Rate Blood Pressure 127/84 127/84 Blood Pressure [Right Arm] O2 Sat by Pulse Oximetry 04/30/16 15:57 Temperature 97.6 F Pulse Rate Pulse Rate [ 101 H Right Radial] Respiratory 20 Rate Blood Pressure Blood Pressure 117/74 [Right Arm] O2 Sat by Pulse 98 Oximetry Constitutional: no acute distress, alert Eyes: non-icteric ENT: oropharynx moist Neck: supple, no lymphadenopathy Effort: normal Ascultation: Bilateral: clear, diminished breath sounds Cardiovascular: regular rate and rhythm Gastrointestinal: normoactive bowel sounds, soft, non-tender, non-distended Integumentary: other (PVD cghanges with sparse haior and pigmentation) Extremities: no cyanosis, edema (trace) Neurologic: normal mental status, non-focal exam, pupils equal and round, motor strength normal and Psychiatric: mood appropriate, affect normal CBC and BMP: 04/28/16 05:07 04/28/16 05:07 ABG, PT/INR, D-dimer: ABG POC ABG pH 7.447 (7.35-7.45) 04/21/16 16:43 POC ABG pCO2 31.8 (35-45) L 04/21/16 16:43 POC ABG pO2 79 (80-105) L 04/21/16 16:43 POC ABG HCO3 21.9 04/21/16 16:43 POC ABG Total CO2 23 04/21/16 16:43 POC ABG O2 Sat 96 04/21/16 16:43 PT/INR, D-dimer PT 29.6 Sec. (12.2-14.9) H 04/30/16 04:59 INR 2.79 (0.87-1.13) H 04/30/16 04:59 Abnormal lab findings: Abnormal Labs 04/16/16 04/16/16 04/16/16 12:30 12:30 12:30 WBC RBC 6.37 H Hgb 16.5 H Hct 48.8 H MCV 77 L MCH 26 L RDW 16.9 H [place] % (Auto) 8.4 H [place] # PT 16.6 H INR 1.35 H Heparin Anti-Xa Level POC ABG pCO2 POC ABG pO2 Sodium 136 L Chloride 96.3 L Carbon Dioxide Creatinine Glucose 285 H POC Glucose Calcium Total Creatine Kinase CK-MB (CK-2) 04/19/16 04/19/16 04/19/16 07:03 14:01 15:02 WBC RBC Hgb Hct MCV MCH RDW [place] % (Auto) [place] # PT INR Heparin Anti-Xa Level POC ABG pCO2 POC ABG pO2 Sodium Chloride Carbon Dioxide Creatinine Glucose POC Glucose 213 H 388 H 415 H Calcium Total Creatine Kinase CK-MB (CK-2) 04/19/16 04/19/16 04/19/16 15:10 15:10 16:55 WBC 16.8 H RBC 5.94 H Hgb Hct 46.3 H MCV 78 L MCH 25 L RDW 17.1 H [place] % (Auto) [place] # PT INR Heparin Anti-Xa Level 0.11 L POC ABG pCO2 POC ABG pO2 Sodium Chloride Carbon Dioxide Creatinine Glucose POC Glucose 310 H Calcium Total Creatine Kinase CK-MB (CK-2) 04/19/16 04/19/16 04/20/16 17:55 22:55 03:08 WBC RBC Hgb Hct MCV MCH RDW [place] % (Auto) [place] # PT INR Heparin Anti-Xa Level POC ABG pCO2 POC ABG pO2 Sodium 136 L 136 L Chloride 97.6 L 95.7 L Carbon Dioxide 19 L Creatinine Glucose 365 H 320 H POC Glucose 255 H Calcium 8.0 L 7.9 L Total Creatine Kinase CK-MB (CK-2) 04/20/16 04/20/16 04/20/16 03:08 03:08 11:51 WBC RBC Hgb Hct MCV MCH RDW [place] % (Auto) [place] # PT 15.3 H INR 1.22 H Heparin Anti-Xa Level 1.18 H POC ABG pCO2 POC ABG pO2 Sodium Chloride Carbon Dioxide Creatinine Glucose POC Glucose 277 H Calcium Total Creatine Kinase CK-MB (CK-2) 04/20/16 04/20/16 04/20/16 13:10 15:27 21:55 WBC RBC Hgb Hct MCV MCH RDW [place] % (Auto) [place] # PT INR Heparin Anti-Xa Level 0.89 H POC ABG pCO2 POC ABG pO2 Sodium Chloride Carbon Dioxide Creatinine Glucose POC Glucose 282 H 243 H Calcium Total Creatine Kinase CK-MB (CK-2) 04/21/16 04/21/16 04/21/16 06:37 12:18 14:43 WBC RBC Hgb Hct MCV MCH RDW [place] % (Auto) [place] # PT INR Heparin Anti-Xa Level POC ABG pCO2 POC ABG pO2 Sodium Chloride Carbon Dioxide Creatinine Glucose POC Glucose 216 H 200 H Calcium Total Creatine Kinase 8731 H CK-MB (CK-2) 13.4 H 04/21/16 04/21/16 04/21/16 15:54 16:43 17:53 WBC RBC Hgb Hct MCV MCH RDW [place] % (Auto) [place] # PT INR Heparin Anti-Xa Level 0.12 L POC ABG pCO2 31.8 L POC ABG pO2 79 L Sodium Chloride Carbon Dioxide Creatinine Glucose POC Glucose 189 H Calcium Total Creatine Kinase CK-MB (CK-2) 03/01/2604/22/16 04/22/16 21:20 02:43 02:43 WBC RBC Hgb Hct MCV MCH RDW [place] % (Auto) [place] # PT 15.5 H INR 1.24 H Heparin Anti-Xa Level 0.21 L POC ABG pCO2 POC ABG pO2 Sodium Chloride Carbon Dioxide Creatinine Glucose POC Glucose 183 H Calcium Total Creatine Kinase CK-MB (CK-2) 04/22/16 04/22/16 04/22/16 07:42 07:53 11:43 WBC RBC Hgb Hct MCV MCH RDW [place] % (Auto) [place] # PT INR Heparin Anti-Xa Level 0.22 L POC ABG pCO2 POC ABG pO2 Sodium Chloride Carbon Dioxide Creatinine Glucose POC Glucose 179 H 197 H Calcium Total Creatine Kinase CK-MB (CK-2) 04/22/16 04/22/16 04/22/16 16:36 17:13 21:06 WBC RBC Hgb Hct MCV MCH RDW [place] % (Auto) [place] # PT INR Heparin Anti-Xa Level 0.29 L POC ABG pCO2 POC ABG pO2 Sodium Chloride Carbon Dioxide Creatinine Glucose POC Glucose 200 H 146 H Calcium Total Creatine Kinase CK-MB (CK-2) 04/23/16 04/23/16 04/23/16 05:37 06:09 11:06 WBC RBC Hgb Hct MCV MCH RDW [place] % (Auto) [place] # PT 15.8 H INR 1.27 H Heparin Anti-Xa Level POC ABG pCO2 POC ABG pO2 Sodium Chloride Carbon Dioxide Creatinine Glucose POC Glucose 129 H 160 H Calcium Total Creatine Kinase CK-MB (CK-2) 04/23/16 04/24/16 04/24/16 21:08 05:20 06:17 WBC RBC Hgb Hct MCV MCH RDW [place] % (Auto) [place] # PT 20.3 H INR 1.74 H Heparin Anti-Xa Level POC ABG pCO2 POC ABG pO2 Sodium Chloride Carbon Dioxide Creatinine Glucose POC Glucose 113 H 117 H Calcium Total Creatine Kinase CK-MB (CK-2) 04/24/16 04/24/16 04/25/16 11:32 21:11 04:30 WBC RBC Hgb Hct MCV MCH RDW [place] % (Auto) [place] # PT 23.9 H INR 2.13 H Heparin Anti-Xa Level POC ABG pCO2 POC ABG pO2 Sodium Chloride Carbon Dioxide Creatinine Glucose POC Glucose 128 H 118 H Calcium Total Creatine Kinase CK-MB (CK-2) 04/25/16 04/25/16 04/25/16 06:29 08:39 11:24 WBC RBC Hgb Hct MCV MCH RDW [place] % (Auto) [place] # PT INR Heparin Anti-Xa Level POC ABG pCO2 POC ABG pO2 Sodium Chloride Carbon Dioxide Creatinine Glucose POC Glucose 129 H 161 H 172 H Calcium Total Creatine Kinase CK-MB (CK-2) 04/25/16 04/25/16 04/26/16 13:14 17:04 03:43 WBC RBC Hgb Hct MCV MCH RDW [place] % (Auto) [place] # PT 26.2 H INR 2.39 H Heparin Anti-Xa Level POC ABG pCO2 POC ABG pO2 Sodium Chloride Carbon Dioxide Creatinine Glucose POC Glucose 124 H Calcium Total Creatine Kinase 1088 H CK-MB (CK-2) 04/26/16 04/26/16 04/26/16 06:25 11:12 13:42 WBC 11.4 H RBC Hgb Hct MCV 78 L MCH 26 L RDW 17.5 H [place] % (Auto) 7.8 H [place] # 0.9 H PT INR Heparin Anti-Xa Level POC ABG pCO2 POC ABG pO2 Sodium Chloride Carbon Dioxide Creatinine Glucose POC Glucose 128 H 153 H Calcium Total Creatine Kinase CK-MB (CK-2) 04/26/16 04/26/16 04/26/16 13:42 15:58 21:23 WBC RBC Hgb Hct MCV MCH RDW [place] % (Auto) [place] # PT INR Heparin Anti-Xa Level POC ABG pCO2 POC ABG pO2 Sodium 136 L Chloride Carbon Dioxide Creatinine Glucose 127 H POC Glucose 141 H 109 H Calcium Total Creatine Kinase CK-MB (CK-2) 04/27/16 04/27/16 04/27/16 04:10 06:27 11:38 WBC RBC Hgb Hct MCV MCH RDW [place] % (Auto) [place] # PT 29.8 H INR 2.82 H Heparin Anti-Xa Level < 0.10 L POC ABG pCO2 POC ABG pO2 Sodium Chloride Carbon Dioxide Creatinine Glucose POC Glucose 113 H 128 H Calcium Total Creatine Kinase CK-MB (CK-2) 04/28/16 04/28/16 04/28/16 05:07 05:07 05:07 WBC RBC Hgb Hct MCV 77 L MCH 25 L RDW 17.3 H [place] % (Auto) 7.9 H [place] # PT 29.6 H INR 2.79 H Heparin Anti-Xa Level POC ABG pCO2 POC ABG pO2 Sodium Chloride Carbon Dioxide Creatinine 0.7 L Glucose 109 H POC Glucose Calcium Total Creatine Kinase CK-MB (CK-2) 04/28/16 04/29/16 04/29/16 11:02 06:07 11:32 WBC RBC Hgb Hct MCV MCH RDW [place] % (Auto) [place] # PT 28.9 H INR 2.71 H Heparin Anti-Xa Level POC ABG pCO2 POC ABG pO2 Sodium Chloride Carbon Dioxide Creatinine Glucose POC Glucose 125 H 112 H Calcium Total Creatine Kinase CK-MB (CK-2) 04/29/16 04/30/16 04/30/16 21:31 04:59 04:59 WBC RBC Hgb Hct MCV MCH RDW [place] % (Auto) [place] # PT 29.6 H INR 2.79 H Heparin Anti-Xa Level POC ABG pCO2 POC ABG pO2 Sodium Chloride Carbon Dioxide Creatinine Glucose POC Glucose 117 H Calcium Total Creatine Kinase 261 H CK-MB (CK-2) 04/30/16 04/30/16 04/30/16 05:57 10:49 16:28 WBC RBC Hgb Hct MCV MCH RDW [place] % (Auto) [place] # PT INR Heparin Anti-Xa Level POC ABG pCO2 POC ABG pO2 Sodium Chloride Carbon Dioxide Creatinine Glucose POC Glucose 123 H 211 H 115 H Calcium Total Creatine Kinase CK-MB (CK-2)
[2016-04-30] MEDS: AMBIEN PO PRN (22:27)
[2016-04-30] MEDS: LEVEMIR SUB-Q SCH (22:30)
[2016-05-01] MEDS: PERCOCET 5/325 PO PRN ×2 (06:39→17:01)
[2016-05-01 07:29] LABS: INR 2.57 (0.87-1.13)
[2016-05-01] MEDS: NOVOLOG SUB-Q SCH ×3 (09:49→17:04)
[2016-05-01] MEDS: PLAVIX PO SCH (10:38)
[2016-05-01] MEDS: GLUCOPHAGE PO SCH ×2 (10:38→17:01)
[2016-05-01] MEDS: ASPIRIN PO SCH (10:38)
[2016-05-01] MEDS: IMDUR PO SCH (10:38)
[2016-05-01] MEDS: TRENTAL PO SCH ×2 (10:39→17:02)
[2016-05-01] MEDS: GLUCOTROL XL PO SCH (10:39)
[2016-05-01] MEDS: LOPRESSOR PO SCH (10:40)
[2016-05-01] MEDS: LYRICA PO SCH ×2 (10:40→17:00)
--- NOTE | 2016-05-01 13:25 | Progress Note ---
Assessment and Plan A/P: This is a 45 YO M with trouble walking post L fem bypass on 04/19. Pt improving clinically. Agree with the assessment from Dr. Castañeda. Pt 's gait is limited secondary to numbness in the bottom of his feet. Pt admits that some of this was present prior to surgery but has worsened since. Overall he is improving. Recommend: Nothing further to do regarding results of MRI. From a neuro standpoint pt would benefit from inpt rehab and is clear to go from my standpoint. Continue care for his medical issues as you are doing. Strict BP and BG control. continue antiplatelets and statin with history of stroke. Thank you for this consult. Call with questions. Subjective Date of service: 05/01/16 Principal diagnosis: unable to walk Interval history: PT is moving a little better today. Says that his legs move fine but because her feet are numb on the bottom he is having trouble walking. Met PT in the room. Pt is steadily improving. This is a follow up note. Pt seen and chart/ imaging reviewed. Objective - Vital Sign Vital Signs - 12hr 05/01/16 05/01/16 05/01/16 06:39 07:35 08:53 Temperature 97.9 F Pulse Rate Pulse Rate [ 79 Apical] Respiratory 18 18 20 Rate Blood Pressure Blood Pressure 134/96 [Right Arm] 05/01/16 05/01/16 10:38 10:40 Temperature Pulse Rate 79 79 Pulse Rate [ Apical] Respiratory Rate Blood Pressure 134/96 134/96 Blood Pressure [Right Arm] - EENT EENT: PERRL - Respiratory Respiratory: lungs clear - Neurologic Cranial nerve examination: PERRL, EOMI, V1/V2/V3 grossly intact, face symmetric , tongue midline Detailed motor examination: other (UE 5/5, LLE prox 4/5, distal 5/5. 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) - Laboratory Findings CBC and BMP: 04/28/16 05:07 04/28/16 05:07 Abnormal Lab Findings: Abnormal Labs 04/16/16 04/16/16 04/16/16 12:30 12:30 12:30 WBC RBC 6.37 H Hgb 16.5 H Hct 48.8 H MCV 77 L MCH 26 L RDW 16.9 H [place] % (Auto) 8.4 H [place] # PT 16.6 H INR 1.35 H Heparin Anti-Xa Level POC ABG pCO2 POC ABG pO2 Sodium 136 L Chloride 96.3 L Carbon Dioxide Creatinine Glucose 285 H POC Glucose Calcium Total Creatine Kinase CK-MB (CK-2) 04/19/16 04/19/16 04/19/16 07:03 14:01 15:02 WBC RBC Hgb Hct MCV MCH RDW [place] % (Auto) [place] # PT INR Heparin Anti-Xa Level POC ABG pCO2 POC ABG pO2 Sodium Chloride Carbon Dioxide Creatinine Glucose POC Glucose 213 H 388 H 415 H Calcium Total Creatine Kinase CK-MB (CK-2) 04/19/16 04/19/16 04/19/16 15:10 15:10 16:55 WBC 16.8 H RBC 5.94 H Hgb Hct 46.3 H MCV 78 L MCH 25 L RDW 17.1 H [place] % (Auto) [place] # PT INR Heparin Anti-Xa Level 0.11 L POC ABG pCO2 POC ABG pO2 Sodium Chloride Carbon Dioxide Creatinine Glucose POC Glucose 310 H Calcium Total Creatine Kinase CK-MB (CK-2) 04/19/16 04/19/16 04/20/16 17:55 22:55 03:08 WBC RBC Hgb Hct MCV MCH RDW [place] % (Auto) [place] # PT INR Heparin Anti-Xa Level POC ABG pCO2 POC ABG pO2 Sodium 136 L 136 L Chloride 97.6 L 95.7 L Carbon Dioxide 19 L Creatinine Glucose 365 H 320 H POC Glucose 255 H Calcium 8.0 L 7.9 L Total Creatine Kinase CK-MB (CK-2) 04/20/16 04/20/16 04/20/16 03:08 03:08 11:51 WBC RBC Hgb Hct MCV MCH RDW [place] % (Auto) [place] # PT 15.3 H INR 1.22 H Heparin Anti-Xa Level 1.18 H POC ABG pCO2 POC ABG pO2 Sodium Chloride Carbon Dioxide Creatinine Glucose POC Glucose 277 H Calcium Total Creatine Kinase CK-MB (CK-2) 04/20/16 04/20/16 04/20/16 13:10 15:27 21:55 WBC RBC Hgb Hct MCV MCH RDW [place] % (Auto) [place] # PT INR Heparin Anti-Xa Level 0.89 H POC ABG pCO2 POC ABG pO2 Sodium Chloride Carbon Dioxide Creatinine Glucose POC Glucose 282 H 243 H Calcium Total Creatine Kinase CK-MB (CK-2) 04/21/16 04/21/16 04/21/16 06:37 12:18 14:43 WBC RBC Hgb Hct MCV MCH RDW [place] % (Auto) [place] # PT INR Heparin Anti-Xa Level POC ABG pCO2 POC ABG pO2 Sodium Chloride Carbon Dioxide Creatinine Glucose POC Glucose 216 H 200 H Calcium Total Creatine Kinase 8731 H CK-MB (CK-2) 13.4 H 04/21/16 04/21/16 04/21/16 15:54 16:43 17:53 WBC RBC Hgb Hct MCV MCH RDW [place] % (Auto) [place] # PT INR Heparin Anti-Xa Level 0.12 L POC ABG pCO2 31.8 L POC ABG pO2 79 L Sodium Chloride Carbon Dioxide Creatinine Glucose POC Glucose 189 H Calcium Total Creatine Kinase CK-MB (CK-2) 04/21/16 04/22/16 04/22/16 21:20 02:43 02:43 WBC RBC Hgb Hct MCV MCH RDW [place] % (Auto) [place] # PT 15.5 H INR 1.24 H Heparin Anti-Xa Level 0.21 L POC ABG pCO2 POC ABG pO2 Sodium Chloride Carbon Dioxide Creatinine Glucose POC Glucose 183 H Calcium Total Creatine Kinase CK-MB (CK-2) 04/22/16 04/22/16 04/22/16 07:42 07:53 11:43 WBC RBC Hgb Hct MCV MCH RDW [place] % (Auto) [place] # PT INR Heparin Anti-Xa Level 0.22 L POC ABG pCO2 POC ABG pO2 Sodium Chloride Carbon Dioxide Creatinine Glucose POC Glucose 179 H 197 H Calcium Total Creatine Kinase CK-MB (CK-2) 04/22/16 04/22/16 04/22/16 16:36 17:13 21:06 WBC RBC Hgb Hct MCV MCH RDW [place] % (Auto) [place] # PT INR Heparin Anti-Xa Level 0.29 L POC ABG pCO2 POC ABG pO2 Sodium Chloride Carbon Dioxide Creatinine Glucose POC Glucose 200 H 146 H Calcium Total Creatine Kinase CK-MB (CK-2) 04/23/16 04/23/16 04/23/16 05:37 06:09 11:06 WBC RBC Hgb Hct MCV MCH RDW [place] % (Auto) [place] # PT 15.8 H INR 1.27 H Heparin Anti-Xa Level POC ABG pCO2 POC ABG pO2 Sodium Chloride Carbon Dioxide Creatinine Glucose POC Glucose 129 H 160 H Calcium Total Creatine Kinase CK-MB (CK-2) 04/23/16 04/24/16 04/24/16 21:08 05:20 06:17 WBC RBC Hgb Hct MCV MCH RDW [place] % (Auto) [place] # PT 20.3 H INR 1.74 H Heparin Anti-Xa Level POC ABG pCO2 POC ABG pO2 Sodium Chloride Carbon Dioxide Creatinine Glucose POC Glucose 113 H 117 H Calcium Total Creatine Kinase CK-MB (CK-2) 04/24/16 04/24/16 04/25/16 11:32 21:11 04:30 WBC RBC Hgb Hct MCV MCH RDW [place] % (Auto) [place] # PT 23.9 H INR 2.13 H Heparin Anti-Xa Level POC ABG pCO2 POC ABG pO2 Sodium Chloride Carbon Dioxide Creatinine Glucose POC Glucose 128 H 118 H Calcium Total Creatine Kinase CK-MB (CK-2) 04/25/16 04/25/16 04/25/16 06:29 08:39 11:24 WBC RBC Hgb Hct MCV MCH RDW [place] % (Auto) [place] # PT INR Heparin Anti-Xa Level POC ABG pCO2 POC ABG pO2 Sodium Chloride Carbon Dioxide Creatinine Glucose POC Glucose 129 H 161 H 172 H Calcium Total Creatine Kinase CK-MB (CK-2) 04/25/16 04/25/16 04/26/16 13:14 17:04 03:43 WBC RBC Hgb Hct MCV MCH RDW [place] % (Auto) [place] # PT 26.2 H INR 2.39 H Heparin Anti-Xa Level POC ABG pCO2 POC ABG pO2 Sodium Chloride Carbon Dioxide Creatinine Glucose POC Glucose 124 H Calcium Total Creatine Kinase 1088 H CK-MB (CK-2) 04/26/16 04/26/16 04/26/16 06:25 11:12 13:42 WBC 11.4 H RBC Hgb Hct MCV 78 L MCH 26 L RDW 17.5 H [place] % (Auto) 7.8 H [place] # 0.9 H PT INR Heparin Anti-Xa Level POC ABG pCO2 POC ABG pO2 Sodium Chloride Carbon Dioxide Creatinine Glucose POC Glucose 128 H 153 H Calcium Total Creatine Kinase CK-MB (CK-2) 04/26/16 04/26/16 04/26/16 13:42 15:58 21:23 WBC RBC Hgb Hct MCV MCH RDW [place] % (Auto) [place] # PT INR Heparin Anti-Xa Level POC ABG pCO2 POC ABG pO2 Sodium 136 L Chloride Carbon Dioxide Creatinine Glucose 127 H POC Glucose 141 H 109 H Calcium Total Creatine Kinase CK-MB (CK-2) 04/27/16 04/27/16 04/27/16 04:10 06:27 11:38 WBC RBC Hgb Hct MCV MCH RDW [place] % (Auto) [place] # PT 29.8 H INR 2.82 H Heparin Anti-Xa Level < 0.10 L POC ABG pCO2 POC ABG pO2 Sodium Chloride Carbon Dioxide Creatinine Glucose POC Glucose 113 H 128 H Calcium Total Creatine Kinase CK-MB (CK-2) 04/28/16 04/28/16 04/28/16 05:07 05:07 05:07 WBC RBC Hgb Hct MCV 77 L MCH 25 L RDW 17.3 H [place] % (Auto) 7.9 H [place] # PT 29.6 H INR 2.79 H Heparin Anti-Xa Level POC ABG pCO2 POC ABG pO2 Sodium Chloride Carbon Dioxide Creatinine 0.7 L Glucose 109 H POC Glucose Calcium Total Creatine Kinase CK-MB (CK-2) 04/28/16 04/29/16 04/29/16 11:02 06:07 11:32 WBC RBC Hgb Hct MCV MCH RDW [place] % (Auto) [place] # PT 28.9 H INR 2.71 H Heparin Anti-Xa Level POC ABG pCO2 POC ABG pO2 Sodium Chloride Carbon Dioxide Creatinine Glucose POC Glucose 125 H 112 H Calcium Total Creatine Kinase CK-MB (CK-2) 04/29/16 04/30/16 04/30/16 21:31 04:59 04:59 WBC RBC Hgb Hct MCV MCH RDW [place] % (Auto) [place] # PT 29.6 H INR 2.79 H Heparin Anti-Xa Level POC ABG pCO2 POC ABG pO2 Sodium Chloride Carbon Dioxide Creatinine Glucose POC Glucose 117 H Calcium Total Creatine Kinase 261 H CK-MB (CK-2) 04/30/16 04/30/16 04/30/16 05:57 10:49 16:28 WBC RBC Hgb Hct MCV MCH RDW [place] % (Auto) [place] # PT INR Heparin Anti-Xa Level POC ABG pCO2 POC ABG pO2 Sodium Chloride Carbon Dioxide Creatinine Glucose POC Glucose 123 H 211 H 115 H Calcium Total Creatine Kinase CK-MB (CK-2) 05/01/16 05/01/16 05/01/16 05:49 06:08 11:12 WBC RBC Hgb Hct MCV MCH RDW [place] % (Auto) [place] # PT 27.7 H INR 2.57 H Heparin Anti-Xa Level POC ABG pCO2 POC ABG pO2 Sodium Chloride Carbon Dioxide Creatinine Glucose POC Glucose 114 H 146 H Calcium Total Creatine Kinase CK-MB (CK-2) - Diagnostic Findings Additional findings: reviewed MRI's Brain- remote LMCA stroke, nothing acute cervical- degenerative disease, most prominent at C3,4. Not contributing to current symptoms lumbar- degenerative changes at L5,S1. Unlikely contributing to present symptoms
--- NOTE | 2016-05-01 13:43 | Progress Note ---
Assessment and Plan Assessment and plan: --Lower extremity weakness, MRI did not reveal any acute findings, Neurology following, physical therapy occupational therapy acute versus subacute rehabilitation when medically stable -- Peripheral vascular disease - status post femoropopliteal bypass 04/19; management per vascular surgery; on vasodilators and anticoagulation Therapeutic INR --Type 2 diabetes mellitus well controlled Accu-Chek sliding scale coverage and ADA diet, Lantus insulin, an oral hypoglycemics Closely monitor blood sugars and adjust dose --History of CVA -continue aspirin and statin --Rhabdomyolysis Improved --DVT prophylaxis , patient is already on anticoagulation Plan of care discussed with the patient and his nurse History Interval history: Patient Seen and evaluated this morning medical records reviewed Feels slightly better neurology evaluation and recommendations noted and appreciated, No new symptoms Alert awake oriented 3 not in acute distress vital signs reviewed Hospitalist Physical - Constitutional Vitals: Temp Pulse Resp BP Pulse Ox 97.9 F 79 20 134/96 95 05/01/16 08:53 05/01/16 10:40 05/01/16 08:53 05/01/16 10:40 05/01/16 00:00 General appearance: Present: no acute distress - EENT Eyes: Present: PERRL, EOM intact - Neck Neck: Present: supple, normal ROM - Respiratory Respiratory effort: normal Respiratory: negative: rales, rhonchi, wheezing - Cardiovascular Rhythm: regular Heart Sounds: Present: S1 & S2 - Extremities Extremities: no ischemia, No edema - Abdominal General gastrointestinal: soft, non-tender, non-distended, normal bowel sounds - Integumentary Integumentary: Present: clear, warm - Psychiatric Psychiatric: appropriate mood/affect, cooperative - Neurologic Neurologic: moves all extremities (lower extremity weakness) Results - Labs CBC & Chem 7: 04/28/16 05:07 04/28/16 05:07 Labs: Laboratory Last Values WBC 9.4 K/mm3 (4.5-11.0) 04/28/16 05:07 RBC 5.03 M/mm3 (3.65-5.03) 04/28/16 05:07 Hgb 12.8 gm/dl (11.8-15.2) 04/28/16 05:07 Hct 38.8 % (35.5-45.6) 04/28/16 05:07 MCV 77 fl (84-94) L 04/28/16 05:07 MCH 25 pg (28-32) L 04/28/16 05:07 MCHC 33 % (32-34) 04/28/16 05:07 RDW 17.3 % (13.2-15.2) H 04/28/16 05:07 Plt Count 377 K/mm3 (140-440) 04/28/16 05:07 Lymph % (Auto) 23.4 % (13.4-35.0) 04/28/16 05:07 [place] % (Auto) 7.9 % (0.0-7.3) H 04/28/16 05:07 Eos % (Auto) 1.9 % (0.0-4.3) 04/28/16 05:07 Baso % (Auto) 0.6 % (0.0-1.8) 04/28/16 05:07 Lymph # 2.2 K/mm3 (1.2-5.4) 04/28/16 05:07 [place] # 0.7 K/mm3 (0.0-0.8) 04/28/16 05:07 Eos # 0.2 K/mm3 (0.0-0.4) 04/28/16 05:07 Baso # 0.1 K/mm3 (0.0-0.1) 04/28/16 05:07 Seg Neutrophils % 66.2 % (40.0-70.0) 04/28/16 05:07 Seg Neutrophils # 6.2 K/mm3 (1.8-7.7) 04/28/16 05:07 PT 27.7 Sec. (12.2-14.9) H 05/01/16 05:49 INR 2.57 (0.87-1.13) H 05/01/16 05:49 APTT 24.7 Sec. (24.2-36.6) 04/19/16 15:10 Heparin Anti-Xa Level < 0.10 U.I./ml (0.3-0.7) L 04/27/16 04:10 POC ABG pH 7.447 (7.35-7.45) 04/21/16 16:43 POC ABG pCO2 31.8 (35-45) L 04/21/16 16:43 POC ABG pO2 79 (80-105) L 04/21/16 16:43 POC ABG HCO3 21.9 04/21/16 16:43 POC ABG Total CO2 23 04/21/16 16:43 POC ABG O2 Sat 96 04/21/16 16:43 POC ABG Base Excess -2 04/21/16 16:43 FiO2 2 % 04/21/16 16:43 Sodium 139 mmol/L (137-145) 04/28/16 05:07 Potassium 4.2 mmol/L (3.6-5.0) 04/28/16 05:07 Chloride 102.4 mmol/L (98-107) 04/28/16 05:07 Carbon Dioxide 24 mmol/L (22-30) 04/28/16 05:07 Anion Gap 17 mmol/L 04/28/16 05:07 BUN 12 mg/dL (9-20) 04/28/16 05:07 Creatinine 0.7 mg/dL (0.8-1.5) L 04/28/16 05:07 Estimated GFR > 60 ml/min 04/28/16 05:07 BUN/Creatinine Ratio 17.14 % 04/28/16 05:07 Glucose 109 mg/dL (75-100) H 04/28/16 05:07 POC Glucose 146 (70-105) H 05/01/16 11:12 Calcium 8.7 mg/dL (8.4-10.2) 04/28/16 05:07 Total Creatine Kinase 261 units/L (55-170) H 04/30/16 04:59 CK-MB (CK-2) 13.4 ng/mL (0.0-4.0) H 04/21/16 14:43 CK-MB (CK-2) Rel Index 0.1 (0-4) 04/21/16 14:43 Troponin T < 0.010 ng/mL (0.00-0.029) 04/21/16 14:43 Blood Type B POSITIVE 04/16/16 12:30 Antibody Screen Negative 04/16/16 12:30
--- NOTE | 2016-05-01 15:20 | Discharge Summary ---
Providers - Providers Date of Admission: 04/19/16 06:00 Date of discharge: 05/01/16 Attending physician: CADEN SORIANO 04/19/16 13:53 Consult to Physician [CONS] Routine Consulting Provider: CJ HAMLIN Reason For Exam: ICU admission Place consult to:: Notified:: yes Was contact made?: Yes 04/22/16 10:42 Physical Therapy Evaluation and Treat [CONS] Routine Comment: motor and sensory deficits to lower ext Reason For Exam: gait training, s/p fem fem bypass, 04/22/16 10:44 Consult to Physician [CONS] Routine Consulting Provider: DEWEY PANTOJA Reason For Exam: Lower ext weakness with decreased sensation Place consult to:: Notified:: yes Phone number called:: [phone] Was contact made?: No Comment:: awaiting Phone number and will call MD 04/22/16 10:48 Consult to Physician [CONS] Routine Consulting Provider: WANDA PEDROZA Reason For Exam: medical management Place consult to:: Notified:: yes Was contact made?: Yes 04/24/16 14:38 Consult Acute Rehabilitation [CONS] Routine Consulting Provider: WALTER LIMA Reason For Exam: rehab eval Consult to Case Management [CONS] Routine Services Needed at Discharge: Other Notified:: parrish Additional Physician Instructions: Rehab eval 04/24/16 21:21 Occupational Therapy Evaluate and Treat [CONS] Routine Comment: Reason For Exam: BLE weakness 04/25/16 10:56 Consult to Case Management [CONS] Routine Services Needed at Discharge: Other Notified:: cw Additional Physician Instructions: Need to have pt sent for Open MRI prior to d/c. 05/01/16 10:25 Consult to Physician [CONS] Routine Consulting Provider: LASHONDA CARLSON Reason For Exam: Neuro deficits- MRI read/recommendations Place consult to:: April Cheema Notified:: Yes Phone number called:: [phone] Primary care physician: YAMINI HURLEY Hospitalization Reason for admission: PVD with Claudication Pertinent studies: 04/29/2016 and 04/30/2016 Open MRI of the brain, and cervical, thoracic and lumbar spine: 1. Evidence of remote ischemia in the left MCA territory with areas of laminar necrosis. No acute infarction seen. 2. Right maxillary sinus disease with small fluid level. Correlate for acute sinusitis. 3. Cervical spondylosis is the most prominent at C3-C4 where there is moderate central and severe bilateral foraminal stenosis. ACDF is noted at C5-C7 4. Mild lumbar spondylosis with straightening of the normal lordosis. Degenerative changes are most prominent at L5-S1 where a left foraminal disc osteophyte results in moderate left foraminal stenosis. 5. Abnormal signal within the distal abdominal aorta and left common iliac artery may represent underlying stent. Correlate clinically. Procedures: Operative Report Operative Report: Date of Procedure: 04/19/2016 Pre-operative Diagnosis: PVD with Left Foot Rest Pain Post-operative Diagnosis: Same Procedure(s): 1. Open Left Femoral Artery Thrombectomy 2. Open Right Femoral Thrombectomy 3. Open Right Iliac Thrombectomy with 6 Braxton 4. Right Femoral Artery to Left Profunda Artery Bypass with 8 mm Ringed Propaten Graft Surgeon: Caden Soriano M.D. Dough Raiser: Alex Juarez PA-C Anesthesia: Gen. Endotracheal Anesthesia EBL: 750 mL Counts: Correct Complications: None Condition: Stable Findings: The patient's left common femoral artery and external iliac artery were fragile and tore with manipulation. Visualization of the mid external iliac artery demonstrated the artery also had poor tissue integrity. The patient's left iliac and common femoral artery dissection extended into the profunda artery. There was thrombus within the right common femoral artery and external iliac artery. Specimen: Left common femoral artery sent to pathology. Left femoral plaque and thrombus sent to pathology. Indication: The patient is a 45-year-old male with a history of peripheral vascular disease and possible vasculitis requiring bilateral femoral artery to popliteal artery bypass. The bypass is thrombosed and the patient presented to us with short distance claudication. He had a diagnostic arteriogram that demonstrated the occlusion of the superficial femoral arteries and popliteal arteries bilaterally. The diagnostic material did demonstrate the bilateral iliac arteries and the aorta widely patent. He subsequently underwent an percutaneous intervention for coronary spasm and there was presented with complaints of rest pain on the left and worsening claudication on the right. He underwent an arteriogram in the office that demonstrated occlusion of his left common iliac, external iliac, and common femoral arteries. He was scheduled for a left femoral endarterectomy with stenting of the left iliac artery. He was given the risks, benefits, and alternative procedures and consented to procedure. Hospital course: This patient was admitted in preparation for the above-stated procedure which was performed without complication. Postoperatively he was transferred to the recovery room and subsequently to the intensive care unit. Since the patient was noted to have intraoperative thrombus, he was started on anticoagulation. Postoperatively he complained of an inability to feel or move either of his lower extremities. This did gradually improve. However, he stated he was unable to stand and walk. A Neurology consult was requested, and physical therapy was consulted. The patient was evaluated by neurology. It was suspected that this was an exacerbation of underlying peripheral neuropathies. However, an MRI of his brain and spine were ordered to rule out central or spinal involvement. Unfortunately, the patient's size prevented him from fitting in the MRI. Multiple attempts over several days (with differing amounts of sedation including anesthesia assistance) were unsuccessful. The patient was sent to an outside facility for an open MRI. His symptoms slowly improved. However, by 05/01/2016 he was still unable to ambulate. The MRI results were reviewed by neurology. No further intervention was recommended based upon these findings. Neurology recommends inpatient rehabilitation. We do not recommend low-level rehabilitation as it would likely lengthen his stay in a medical facility. This would likely result in deconditioning (which would decrease his chance of regaining ambulation), and increasing his risk of nosocomial infection and overall morbidity. The patient has been evaluated by Dr. Lima and accepted to the IRU. Dione to discharge from a vascular surgery standpoint. The patient will follow up in our office as an outpatient. Disposition: DC/TX INPT REHAB FACILITY - Discharge Diagnoses (1) Atherosclerosis of [place] arteries of extremity with rest pain Status: Acute Qualifiers: Peripheral atherosclerosis location: P Laterality: L (2) Paresthesia of bilateral legs Status: Acute Core Measure Documentation - Palliative Care Palliative Care/ Comfort Measures: Not Applicable - Core Measures Any of the following diagnoses?: history only Exam - Constitutional Vitals: Temp Pulse Resp BP Pulse Ox 97.9 F 79 20 134/96 95 05/01/16 08:53 05/01/16 10:40 05/01/16 08:53 05/01/16 10:40 05/01/16 00:00 General appearance: Present: no acute distress - EENT Eyes: Present: EOM intact ENT: hearing intact - Neck Neck: Present: normal ROM - Respiratory Respiratory effort: normal - Extremities Extremities: no ischemia, normal temperature, abnormal (numbness to both lower extremities, but the patient is able to move all 4 extremities) - Psychiatric Psychiatric: appropriate mood/affect, intact judgment & insight, cooperative Plan Activity: advance as tolerated Weight Bearing Status: Weight Bear as Tolerated Diet: diabetic Wound: keep clean and dry Follow up with: YAMINI HURLEY MD [Primary Care Provider] - 7 Days CADEN SORIANO MD [Staff Physician] - 14 Days Forms: Warfarin Discharge Instruction
[2016-05-01 16:31] VITALS: BP 116/83
--- NOTE | 2016-05-01 16:53 | Operative Report ---
Operative Report Operative Report: EXAM: 1. Ultrasound-guided puncture of the right internal jugular vein 2. Fluoroscopic-guided placement of a right internal jugular nontunneled noncuffed hemodialysis catheter. DATE: 05/01/16 INDICATION: Acute renal failure requiring hemodialysis. MEDICATIONS: Please see nursing report for full details. DEVICES: 15 cm dual lumen hemodialysis catheter PRINCIPAL PLANNER: DARLING SPAULDING MD CONTRAST: None PROCEDURE: The risks, benefits, and alternatives were discussed and informed consent was obtained. The patient was transported to the angiography suite in satisfactory/ stable condition and was transported onto the angiography table. The patient's right internal jugular vein was assessed with ultrasound and determined to be patent prior to procedure. The patient was prepped and draped in a sterile fashion. The puncture site was anesthetized. The right internal jugular vein was patent on ultrasound. Under sonographic guidance, the right internal jugular vein was punctured with a 21-gauge micropuncture needle and a 0.018 inch wire was advanced through the needle. Needle was exchanged for transitional dilator. The inner dilator and wire was removed and a 0.035 inch wire was advanced through the transitional dilator into the inferior vena cava. Over the 0.035 inch wire, serial dilatation was performed. The catheter was advanced over the wire and positioned centrally under fluoroscopic guidance. 2-0 silk suture was used to secure the catheter. The catheter was charged with heparin 1000 units per mL of space. Sterile dressing applied. The patient was transferred from the angiography suite back to the floor in stable condition. FINDINGS: 1. Excellent flow was obtained through the dialysis catheter with 20 mL syringes. 2. The catheter tip is in the right atrium. IMPRESSION: 1. Successful sonographically and fluoroscopically guided placement of a right internal jugular nontunneled noncuffed hemodialysis catheter.
[2016-05-01] MEDS: COUMADIN PO SCH (17:02)
--- NOTE | 2016-05-01 18:31 | Progress Note ---
Assessment and Plan I was told patient moved to rehab. - Patient Problems (1) Atherosclerosis of [place] arteries of extremity with rest pain Status: Acute Qualifiers: Peripheral atherosclerosis location: P Laterality: L (2) PAD (peripheral artery disease) Status: Chronic (3) Uncontrolled diabetes mellitus Status: Chronic Qualifiers: Diabetes mellitus type: type 2 Diabetes mellitus complication status: with circulatory complication Diabetes mellitus complication detail: with other circulatory complications Diabetic retinopathy severity: D Diabetes mellitus macular edema: D Diabetes mellitus usp insulin use: without usp use Chronic kidney disease stage: C Qualified Code(s): E11.59 - Type 2 diabetes mellitus with other circulatory complications; E11.65 - Type 2 diabetes mellitus with hyperglycemia Subjective Date of service: 05/01/16 Principal diagnosis: unable to walk Interval history: Iwas told patient moved to rehab Objective Vital Signs - 12hr 05/01/16 05/01/16 05/01/16 06:39 07:35 08:53 Temperature 97.9 F Pulse Rate Pulse Rate [ 79 Apical] Respiratory 18 18 20 Rate Blood Pressure Blood Pressure 134/96 [Right Arm] O2 Sat by Pulse Oximetry 05/01/16 05/01/16 05/01/16 10:38 10:40 16:30 Temperature 97.6 F Pulse Rate 79 79 Pulse Rate [ 106 H Apical] Respiratory 20 Rate Blood Pressure 134/96 134/96 Blood Pressure 116/83 [Right Arm] O2 Sat by Pulse 97 Oximetry Neck: supple, no lymphadenopathy Effort: normal Extremities: no cyanosis CBC and BMP: 04/28/16 05:07 04/28/16 05:07 ABG, PT/INR, D-dimer: ABG POC ABG pH 7.447 (7.35-7.45) 04/21/16 16:43 POC ABG pCO2 31.8 (35-45) L 04/21/16 16:43 POC ABG pO2 79 (80-105) L 04/21/16 16:43 POC ABG HCO3 21.9 04/21/16 16:43 POC ABG Total CO2 23 04/21/16 16:43 POC ABG O2 Sat 96 04/21/16 16:43 PT/INR, D-dimer PT 27.7 Sec. (12.2-14.9) H 05/01/16 05:49 INR 2.57 (0.87-1.13) H 05/01/16 05:49 Abnormal lab findings: Abnormal Labs 04/16/16 04/16/16 04/16/16 12:30 12:30 12:30 WBC RBC 6.37 H Hgb 16.5 H Hct 48.8 H MCV 77 L MCH 26 L RDW 16.9 H Casey % (Auto) 8.4 H Casey # PT 16.6 H INR 1.35 H Heparin Anti-Xa Level POC ABG pCO2 POC ABG pO2 Sodium 136 L Chloride 96.3 L Carbon Dioxide Creatinine Glucose 285 H POC Glucose Calcium Total Creatine Kinase CK-MB (CK-2) 04/19/16 04/19/16 04/19/16 07:03 14:01 15:02 WBC RBC Hgb Hct MCV MCH RDW Casey % (Auto) Casey # PT INR Heparin Anti-Xa Level POC ABG pCO2 POC ABG pO2 Sodium Chloride Carbon Dioxide Creatinine Glucose POC Glucose 213 H 388 H 415 H Calcium Total Creatine Kinase CK-MB (CK-2) 04/19/16 04/19/16 04/19/16 15:10 15:10 16:55 WBC 16.8 H RBC 5.94 H Hgb Hct 46.3 H MCV 78 L MCH 25 L RDW 17.1 H Casey % (Auto) Casey # PT INR Heparin Anti-Xa Level 0.11 L POC ABG pCO2 POC ABG pO2 Sodium Chloride Carbon Dioxide Creatinine Glucose POC Glucose 310 H Calcium Total Creatine Kinase CK-MB (CK-2) 04/19/16 04/19/16 04/20/16 17:55 22:55 03:08 WBC RBC Hgb Hct MCV MCH RDW Casey % (Auto) Casey # PT INR Heparin Anti-Xa Level POC ABG pCO2 POC ABG pO2 Sodium 136 L 136 L Chloride 97.6 L 95.7 L Carbon Dioxide 19 L Creatinine Glucose 365 H 320 H POC Glucose 255 H Calcium 8.0 L 7.9 L Total Creatine Kinase CK-MB (CK-2) 04/20/16 04/20/16 04/20/16 03:08 03:08 11:51 WBC RBC Hgb Hct MCV MCH RDW Casey % (Auto) Casey # PT 15.3 H INR 1.22 H Heparin Anti-Xa Level 1.18 H POC ABG pCO2 POC ABG pO2 Sodium Chloride Carbon Dioxide Creatinine Glucose POC Glucose 277 H Calcium Total Creatine Kinase CK-MB (CK-2) 04/20/16 04/20/16 04/20/16 13:10 15:27 21:55 WBC RBC Hgb Hct MCV MCH RDW Casey % (Auto) Casey # PT INR Heparin Anti-Xa Level 0.89 H POC ABG pCO2 POC ABG pO2 Sodium Chloride Carbon Dioxide Creatinine Glucose POC Glucose 282 H 243 H Calcium Total Creatine Kinase CK-MB (CK-2) 04/21/16 04/21/16 04/21/16 06:37 12:18 14:43 WBC RBC Hgb Hct MCV MCH RDW Casey % (Auto) Casey # PT INR Heparin Anti-Xa Level POC ABG pCO2 POC ABG pO2 Sodium Chloride Carbon Dioxide Creatinine Glucose POC Glucose 216 H 200 H Calcium Total Creatine Kinase 8731 H CK-MB (CK-2) 13.4 H 04/21/16 04/21/16 04/21/16 15:54 16:43 17:53 WBC RBC Hgb Hct MCV MCH RDW Casey % (Auto) Casey # PT INR Heparin Anti-Xa Level 0.12 L POC ABG pCO2 31.8 L POC ABG pO2 79 L Sodium Chloride Carbon Dioxide Creatinine Glucose POC Glucose 189 H Calcium Total Creatine Kinase CK-MB (CK-2) 04/21/16 04/22/16 04/22/16 21:20 02:43 02:43 WBC RBC Hgb Hct MCV MCH RDW Casey % (Auto) Casey # PT 15.5 H INR 1.24 H Heparin Anti-Xa Level 0.21 L POC ABG pCO2 POC ABG pO2 Sodium Chloride Carbon Dioxide Creatinine Glucose POC Glucose 183 H Calcium Total Creatine Kinase CK-MB (CK-2) 04/22/16 04/22/16 04/22/16 07:42 07:53 11:43 WBC RBC Hgb Hct MCV MCH RDW Casey % (Auto) Casey # PT INR Heparin Anti-Xa Level 0.22 L POC ABG pCO2 POC ABG pO2 Sodium Chloride Carbon Dioxide Creatinine Glucose POC Glucose 179 H 197 H Calcium Total Creatine Kinase CK-MB (CK-2) 04/22/16 04/22/16 04/22/16 16:36 17:13 21:06 WBC RBC Hgb Hct MCV MCH RDW Casey % (Auto) Casey # PT INR Heparin Anti-Xa Level 0.29 L POC ABG pCO2 POC ABG pO2 Sodium Chloride Carbon Dioxide Creatinine Glucose POC Glucose 200 H 146 H Calcium Total Creatine Kinase CK-MB (CK-2) 04/23/16 04/23/16 04/23/16 05:37 06:09 11:06 WBC RBC Hgb Hct MCV MCH RDW Casey % (Auto) Casey # PT 15.8 H INR 1.27 H Heparin Anti-Xa Level POC ABG pCO2 POC ABG pO2 Sodium Chloride Carbon Dioxide Creatinine Glucose POC Glucose 129 H 160 H Calcium Total Creatine Kinase CK-MB (CK-2) 04/23/16 04/24/16 04/24/16 21:08 05:20 06:17 WBC RBC Hgb Hct MCV MCH RDW Casey % (Auto) Casey # PT 20.3 H INR 1.74 H Heparin Anti-Xa Level POC ABG pCO2 POC ABG pO2 Sodium Chloride Carbon Dioxide Creatinine Glucose POC Glucose 113 H 117 H Calcium Total Creatine Kinase CK-MB (CK-2) 04/24/16 04/24/16 04/25/16 11:32 21:11 04:30 WBC RBC Hgb Hct MCV MCH RDW Casey % (Auto) Casey # PT 23.9 H INR 2.13 H Heparin Anti-Xa Level POC ABG pCO2 POC ABG pO2 Sodium Chloride Carbon Dioxide Creatinine Glucose POC Glucose 128 H 118 H Calcium Total Creatine Kinase CK-MB (CK-2) 04/25/16 04/25/16 04/25/16 06:29 08:39 11:24 WBC RBC Hgb Hct MCV MCH RDW Casey % (Auto) Casey # PT INR Heparin Anti-Xa Level POC ABG pCO2 POC ABG pO2 Sodium Chloride Carbon Dioxide Creatinine Glucose POC Glucose 129 H 161 H 172 H Calcium Total Creatine Kinase CK-MB (CK-2) 04/25/16 04/25/16 04/26/16 13:14 17:04 03:43 WBC RBC Hgb Hct MCV MCH RDW Casey % (Auto) Casey # PT 26.2 H INR 2.39 H Heparin Anti-Xa Level POC ABG pCO2 POC ABG pO2 Sodium Chloride Carbon Dioxide Creatinine Glucose POC Glucose 124 H Calcium Total Creatine Kinase 1088 H CK-MB (CK-2) 04/26/16 04/26/16 04/26/16 06:25 11:12 13:42 WBC 11.4 H RBC Hgb Hct MCV 78 L MCH 26 L RDW 17.5 H Casey % (Auto) 7.8 H Casey # 0.9 H PT INR Heparin Anti-Xa Level POC ABG pCO2 POC ABG pO2 Sodium Chloride Carbon Dioxide Creatinine Glucose POC Glucose 128 H 153 H Calcium Total Creatine Kinase CK-MB (CK-2) 04/26/16 04/26/16 04/26/16 13:42 15:58 21:23 WBC RBC Hgb Hct MCV MCH RDW Casey % (Auto) Casey # PT INR Heparin Anti-Xa Level POC ABG pCO2 POC ABG pO2 Sodium 136 L Chloride Carbon Dioxide Creatinine Glucose 127 H POC Glucose 141 H 109 H Calcium Total Creatine Kinase CK-MB (CK-2) 04/27/16 04/27/16 04/27/16 04:10 06:27 11:38 WBC RBC Hgb Hct MCV MCH RDW Casey % (Auto) Casey # PT 29.8 H INR 2.82 H Heparin Anti-Xa Level < 0.10 L POC ABG pCO2 POC ABG pO2 Sodium Chloride Carbon Dioxide Creatinine Glucose POC Glucose 113 H 128 H Calcium Total Creatine Kinase CK-MB (CK-2) 04/28/16 04/28/16 04/28/16 05:07 05:07 05:07 WBC RBC Hgb Hct MCV 77 L MCH 25 L RDW 17.3 H Casey % (Auto) 7.9 H Casey # PT 29.6 H INR 2.79 H Heparin Anti-Xa Level POC ABG pCO2 POC ABG pO2 Sodium Chloride Carbon Dioxide Creatinine 0.7 L Glucose 109 H POC Glucose Calcium Total Creatine Kinase CK-MB (CK-2) 04/28/16 04/29/16 04/29/16 11:02 06:07 11:32 WBC RBC Hgb Hct MCV MCH RDW Casey % (Auto) Casey # PT 28.9 H INR 2.71 H Heparin Anti-Xa Level POC ABG pCO2 POC ABG pO2 Sodium Chloride Carbon Dioxide Creatinine Glucose POC Glucose 125 H 112 H Calcium Total Creatine Kinase CK-MB (CK-2) 04/29/16 04/30/16 04/30/16 21:31 04:59 04:59 WBC RBC Hgb Hct MCV MCH RDW Casey % (Auto) Casey # PT 29.6 H INR 2.79 H Heparin Anti-Xa Level POC ABG pCO2 POC ABG pO2 Sodium Chloride Carbon Dioxide Creatinine Glucose POC Glucose 117 H Calcium Total Creatine Kinase 261 H CK-MB (CK-2) 04/30/16 04/30/1617 05:57 10:49 16:28 WBC RBC Hgb Hct MCV MCH RDW Casey % (Auto) Casey # PT INR Heparin Anti-Xa Level POC ABG pCO2 POC ABG pO2 Sodium Chloride Carbon Dioxide Creatinine Glucose POC Glucose 123 H 211 H 115 H Calcium Total Creatine Kinase CK-MB (CK-2) 05/01/16 05/01/16 05/01/16 05:49 06:08 11:12 WBC RBC Hgb Hct MCV MCH RDW Casey % (Auto) Casey # PT 27.7 H INR 2.57 H Heparin Anti-Xa Level POC ABG pCO2 POC ABG pO2 Sodium Chloride Carbon Dioxide Creatinine Glucose POC Glucose 114 H 146 H Calcium Total Creatine Kinase CK-MB (CK-2) 05/01/16 16:48 WBC RBC Hgb Hct MCV MCH RDW Casey % (Auto) Casey # PT INR Heparin Anti-Xa Level POC ABG pCO2 POC ABG pO2 Sodium Chloride Carbon Dioxide Creatinine Glucose POC Glucose 107 H Calcium Total Creatine Kinase CK-MB (CK-2)
== END 2016-05-01 18:15 | DRG 271 ==
LOC: OR 05:48 → 3A 05:48 → UNDOADMIN 05:48 → CC1 06:00 → EDSTATUS 08:00 → 3A 04-22 12:57
PROVIDERS: ADMIT Surgery Vascular Surgery; ATTEND Surgery Vascular Surgery
PROC: 04CK0ZZ Extirpation of Matter from Right Femoral Artery, Open Approach (ICD-10-PCS; principal; 2016-04-19)
PROC: 04CH0ZZ Extirpation of Matter from Right External Iliac Artery, Open Approach (ICD-10-PCS; 2016-04-19)
PROC: 04CL0ZZ Extirpation of Matter from Left Femoral Artery, Open Approach (ICD-10-PCS; 2016-04-19)
PROC: 041K0JQ Bypass Right Femoral Artery to Lower Extremity Artery with Synthetic Substitute, Open Approach (ICD-10-PCS; 2016-04-19)
PROC: 4A033R1 Measurement of Arterial Saturation, Peripheral, Percutaneous Approach (ICD-10-PCS; 2016-04-21)
PROC: 02H633Z Insertion of Infusion Device into Right Atrium, Percutaneous Approach (ICD-10-PCS; 2016-05-01)
PROC: B5131ZA Fluoroscopy of Right Jugular Veins using Low Osmolar Contrast, Guidance (ICD-10-PCS; 2016-05-01)
DX: I70.212 Atherosclerosis of native arteries of extremities with intermittent claudication, left leg (principal); Z68.41 Body mass index [BMI] 40.0-44.9, adult; M62.82 Rhabdomyolysis; N17.9 Acute kidney failure, unspecified; I70.222 Atherosclerosis of native arteries of extremities with rest pain, left leg; E66.01 Morbid (severe) obesity due to excess calories; E11.59 Type 2 diabetes mellitus with other circulatory complications; E11.65 Type 2 diabetes mellitus with hyperglycemia; E11.42 Type 2 diabetes mellitus with diabetic polyneuropathy; G47.30 Sleep apnea, unspecified; I10 Essential (primary) hypertension; I25.10 Atherosclerotic heart disease of native coronary artery without angina pectoris; I25.2 Old myocardial infarction; E78.5 Hyperlipidemia, unspecified; E78.2 Mixed hyperlipidemia; M47.812 Spondylosis without myelopathy or radiculopathy, cervical region; F17.210 Nicotine dependence, cigarettes, uncomplicated; M48.02 Spinal stenosis, cervical region; Z86.73 Personal history of transient ischemic attack (TIA), and cerebral infarction without residual deficits; Z79.84 Long term (current) use of oral hypoglycemic drugs; Z83.3 Family history of diabetes mellitus; Z79.82 Long term (current) use of aspirin; Z82.49 Family history of ischemic heart disease and other diseases of the circulatory system
CPT/HCPCS: 36415; 36600; 80048; 82550; 82553; 82803; 82962; 84484; 85014; 85018; 85025; 85027; 85049; 85520; 85610; 85730; 86850; 86900; 86901; 88304; 88305; 88311; 93005; 93010; 94760; A9270-GY; C1768; G8978-GP; G8979-GP; J0330; J0690; J1100; J1170; J1644; J1650; J1815; J1818; J2250; J2270; J2370; J2405; J2704; J2710; J3010; J3246; J3490; J7030; J7050

== ENCOUNTER 2016-05-01 19:47 | Inpatient (IN) | payer MEDICARE ==
[2016-05-01] MEDS ORDERED: DULCOLAX PR PRN (20:51)
[2016-05-01] MEDS ORDERED: TYLENOL PO PRN (20:51)
[2016-05-01] MEDS ORDERED: SENOKOT PO PRN (20:51)
[2016-05-01] MEDS ORDERED: D50W (25GM) IV PRN (20:51)
[2016-05-01] MEDS ORDERED: ASPIRIN PO SCH (21:00)
[2016-05-01] MEDS: LOPRESSOR PO SCH (23:08)
[2016-05-01] MEDS: LEVEMIR SUB-Q SCH (23:12)
[2016-05-02] MEDS: PERCOCET 5/325 PO PRN ×3 (02:05→22:04)
[2016-05-02 04:41] LABS: Basophils % (Auto) 0.8 % (0.0-1.8); Eosinophils % (Auto) 1.7 % (0.0-4.3); Hematocrit 39.1 % (35.5-45.6); Mean Corpuscular HGB Conc 33 % (32-34); Mean Corpuscular Hemoglobin 26 pg (28-32); Mean Corpuscular Volume 77 fl (84-94); Platelet Count 436 K/mm3 (140-440); Red Blood Count 5.07 M/mm3 (3.65-5.03); Red Cell Distribution Width 17.9 % (13.2-15.2); White Blood Count 10.4 K/mm3 (4.5-11.0)
[2016-05-02 04:51] LABS: INR 3.02 (0.87-1.13)
[2016-05-02 05:01] LABS: Alanine Aminotransferase 56 units/L (7-56); Albumin 3.4 g/dL (3.9-5); Alkaline Phosphatase 103 units/L (35-129); Anion Gap 17 mmol/L; BUN/Creatinine Ratio 16.66; Bilirubin,Total 0.2 mg/dL (0.1-1.2); Blood Urea Nitrogen 15 mg/dL (9-20); Calcium 8.8 mg/dL (8.4-10.2); Carbon Dioxide 23 mmol/L (22-30); Chloride 104.1 mmol/L (98-107); Glucose 107 mg/dL (75-100); Potassium 4.6 mmol/L (3.6-5.0); Sodium 139 mmol/L (137-145); Total Protein 6.8 g/dL (6.3-8.2)
[2016-05-02] MEDS: NOVOLOG SUB-Q SCH ×3 (09:12→18:41)
[2016-05-02] MEDS: LOPRESSOR PO SCH ×2 (09:22→22:05)
[2016-05-02] MEDS: PLAVIX PO SCH (09:23)
[2016-05-02] MEDS: ASPIRIN PO SCH (09:23)
[2016-05-02] MEDS: GLUCOPHAGE PO SCH ×2 (09:24→18:30)
[2016-05-02] MEDS: LYRICA PO SCH ×3 (09:24→20:49)
[2016-05-02] MEDS: GLUCOTROL XL PO SCH (09:24)
[2016-05-02] MEDS: IMDUR PO SCH (09:24)
[2016-05-02] MEDS: TRENTAL PO SCH ×3 (11:01→20:49)
--- NOTE | 2016-05-02 11:31 | History and Physical Report ---
History of Present Illness Date: 05/02/16 Referring Facility: [facility] Date of admission: 05/01/16 19:47 Chief Complaint: PVD with rest pain, s/p fem-fem bypass; post-op exacerbation of BLE peripheral neuropathy and subsequent gait dysfunction History of present illness: POST ADMISSION PHYSICIAN EVALUATION ONSET DATE: 04/19/2016 IMPAIRMENT GROUP CODE: 17.8 ETIOLOGIC DIAGNOSIS: PVD with rest pain, s/p fem-fem bypass; post-op exacerbation of BLE peripheral neuropathy and subsequent gait dysfunction STATUS CHANGES SINCE PREADMISSION SCREENING: PAS has been reviewed. In comparison, pt with improved mobility and pain control on today. Pt was able to initiate in therapies, however, continues with ataxic gait and decreased LE coordination limited functional independence. Pt remains an appropriate candidate for IRU admission. PREVIOUS FUNCTIONAL STATUS: Independent with ADLs, gait, transfers CURRENT FUNCTIONAL STATUS: Angy/CGA for transfers, modA for gait 70 feet HPI 45 y.o. male with history of PVD/atherosclerosis and associated rest pain who reports progressively worsening LLE claudication. Pt had prior outpatient revascularization procedures to attempt to relieve rest pain, however,this was unsuccessful. Pt admitted for left femoral-femoral bypass on 04/19. Post- operatively, pt with acute onset of bilateral lower extremity weakness and numbness; subsequent difficulty ambulating. Neurology was consulted; MRI Brain and entire spine was obtained, however, no acute spinal cord compression was identified. Per Neurology, pt's gait dysfunction was thought to be secondary to acute exacerbation of peripheral neuropathy and would improve over time with rehabilitation. Due to ongoing decline in functional deficits, fluctuating blood pressures (ranging from 98-142/57-96), intermittent tachycardia, new initiation on coumadin, pt was thought to be an appropriate candidate for admission to IRU to continue medical management and provide aggressive therapies. Past History Past Medical History: CAD, diabetes (peripheral neuropathy), hypertension, hyperlipidemia, PVD, stroke, other (sleep apnea) Past Surgical History: Other (revascularization procedures) Social history: , lives with family. denies: smoking (former), alcohol abuse Family history: CAD, diabetes, hypertension Medications and Allergies Allergies Allergy/AdvReac Type Severity Reaction Status Date / Time No Known Allergies Allergy Unverified 04/15/16 11:45 Home Medications Medication Instructions Recorded Confirmed Last Taken Type ALPRAZolam [Xanax TAB] 0.25 mg PO TID PRN 04/15/16 04/19/16 04/14/16 21:00 History Aspirin [Aspirin TAB] 325 mg PO ONCE 04/15/16 04/19/16 04/17/16 09:00 History AtorvaSTATin [Lipitor] 80 mg PO QDAY 04/15/16 04/19/16 04/18/16 09:00 History Clopidogrel Bisulfate [Plavix] 75 mg PO QDAY 04/15/16 04/19/16 04/18/16 09:00 History ISOSORBIDE MONOnitrate [Imdur ER] 60 mg PO QDAY 04/15/16 04/19/16 04/18/16 09: 00 History Metformin HCl [Glucophage] 1,000 mg PO BID 04/15/16 04/19/16 04/17/16 09:00 History Pentoxifylline [TRENtal] 400 mg PO TID 04/15/16 04/19/16 04/18/16 21:00 History Warfarin [Coumadin] 10 mg PO QDAY 04/15/16 04/19/16 04/14/16 09:00 History glipiZIDE [glipiZIDE ER] 5 mg PO QAM 04/15/16 04/19/16 04/15/16 09:00 History Insulin Detemir [Levemir] 20 units SUB-Q QHS units 05/01/16 Unknown Rx Metoprolol [Lopressor TAB] 12.5 mg PO BID tablet 05/01/16 Unknown Rx Pregabalin [Lyrica] 50 mg PO TID capsule 05/01/16 Unknown Rx Warfarin [Coumadin] 10 mg PO DAILY@1700 tablet 05/01/16 Unknown Rx metFORMIN [Glucophage] 1,000 mg PO BIDDIAB tablet 05/01/16 Unknown Rx Active Meds: Active Medications Acetaminophen (Tylenol) 650 mg PO Q4H PRN PRN Reason: Pain MILD(1-3)/Fever >100.5/MACIAS Alprazolam (Xanax) 0.25 mg PO TID PRN PRN Reason: Anxiety Aspirin (Aspirin) 325 mg PO DAILY [facility] Last Admin: 05/02/16 09:23 Dose: 325 mg Atorvastatin Calcium (Lipitor) 80 mg PO QHS MICHAEL Last Admin: 05/01/16 23:10 Dose: 80 mg Bisacodyl (Dulcolax) 10 mg SC QDAY PRN PRN Reason: Constipation unrelieved by MOM Clopidogrel Bisulfate (Plavix) 75 mg PO QDAY [facility] Last Admin: 05/02/16 09:23 Dose: 75 mg Dextrose (D50w (25gm)) 50 ml IV PRN PRN PRN Reason: Hypoglycemia Glipizide (Glucotrol Xl) 10 mg PO QAMDIAB [facility] Last Admin: 05/02/16 09:24 Dose: 10 mg Insulin Aspart (Novolog) 0 units SUB-Q AC [facility] PRN Reason: Protocol Last Admin: 05/02/16 09:12 Dose: Not Given Insulin Detemir (Levemir) 20 units SUB-Q QHS [facility] Last Admin: 05/01/16 23:12 Dose: 20 units Isosorbide Mononitrate (Imdur) 60 mg PO QDAY [facility] Last Admin: 05/02/16 09:24 Dose: 60 mg Metformin HCl (Glucophage) 1,000 mg PO BIDDIAB [facility] Last Admin: 05/02/16 09:24 Dose: 1,000 mg Metoprolol Tartrate (Lopressor) 12.5 mg PO BID [facility] Last Admin: 05/02/16 09:22 Dose: 12.5 mg Oxycodone/Acetaminophen (Percocet 5/325) 1 tab PO Q4H PRN PRN Reason: Pain, Moderate (4-6) Last Admin: 05/02/16 09:29 Dose: 1 tab Pentoxifylline (Trental) 400 mg PO TID [facility] Last Admin: 05/02/16 11:01 Dose: 400 mg Pregabalin (Lyrica) 50 mg PO TID [facility] Last Admin: 05/02/16 09:24 Dose: 50 mg Senna (Senokot) 8.6 mg PO Q12H PRN PRN Reason: Laxative Effect Warfarin Sodium (Coumadin Pharmacy To Dose) 1 each PO PKCONSULT [facility] PRN Reason: Protocol Warfarin Sodium (Coumadin) 5 mg PO DAILY@1700 [facility] Warfarin Sodium (Coumadin) 4 mg PO DAILY@1700 [facility] Review of Systems All systems: negative Ears, nose, mouth and throat: no headache Cardiovascular: no chest pain Respiratory: no cough Gastrointestinal: no nausea, no vomiting Neurological: lack of coordination, gait dysfunction, burning pain (LLE) Exam - Constitutional Vitals: Vital Signs - 12hr 03/23/17 03/23/17 08:00 09:22 Temperature 98.4 F Pulse Rate 110 H Pulse Rate [ 96 H Right Brachial] Respiratory 20 Rate Blood Pressure 142/96 Blood Pressure 142/84 [Right Arm] O2 Sat by Pulse 94 Oximetry General appearance: no acute distress, obese, other (lying on mat in PT) - EENT Eyes: EOM intact ENT: hearing intact - Neck Neck: supple, normal ROM - Respiratory Respiratory effort: normal Respiratory: bilateral: CTA - Cardiovascular Rhythm: regular Heart Sounds: Present: S1 & S2 - Extremities Extremities: No edema - Gastrointestinal General gastrointestinal: Present: soft, non-tender, non-distended, normal bowel sounds - Integumentary Integumentary: Present: clear - Neurologic Neurologic: CNII-XII intact, moves all extremities (4/5 BLE, except 3/5 ankle DF at LLE; decreased coordination at RLE), other (decreased sensation at BLE, below knee on left, at thigh on right) - Psychiatric Psychiatric: appropriate mood/affect, intact judgment & insight, memory intact, cooperative - Labs CBC & Chem 7: 05/02/16 04:15 05/02/16 04:15 Labs: Laboratory Results - last 72 hr 05/01/16 05/02/16 05/02/16 21:33 04:15 04:15 WBC 10.4 RBC 5.07 H Hgb 13.0 Hct 39.1 MCV 77 L MCH 26 L MCHC 33 RDW 17.9 H Plt Count 436 Lymph % (Auto) 23.7 [place]son % (Auto) 7.2 Eos % (Auto) 1.7 Baso % (Auto) 0.8 Lymph # 2.5 [place]son # 0.7 Eos # 0.2 Baso # 0.1 Seg Neutrophils % 66.6 Seg Neutrophils # 7.0 PT 31.5 H INR 3.02 H Sodium Potassium Chloride Carbon Dioxide Anion Gap BUN Creatinine Estimated GFR BUN/Creatinine Ratio Glucose POC Glucose 159 H Calcium Total Bilirubin AST ALT Alkaline Phosphatase Total Protein Albumin Albumin/Globulin Ratio 05/02/16 05/02/16 04:15 06:18 WBC RBC Hgb Hct MCV MCH MCHC RDW Plt Count Lymph % (Auto) [place]son % (Auto) Eos % (Auto) Baso % (Auto) Lymph # [place]son # Eos # Baso # Seg Neutrophils % Seg Neutrophils # PT INR Sodium 139 Potassium 4.6 Chloride 104.1 Carbon Dioxide 23 Anion Gap 17 BUN 15 Creatinine 0.9 Estimated GFR > 60 BUN/Creatinine Ratio 16.66 Glucose 107 H POC Glucose 115 H Calcium 8.8 Total Bilirubin 0.2 AST 23 ALT 56 Alkaline Phosphatase 103 Total Protein 6.8 Albumin 3.4 L Albumin/Globulin Ratio 1.0 Assessment and Plan Assessment and plan: 45 y.o. male s/p left femoral-femoral bypass with post-operative bilateral lower extremity weakness and gait dysfunction thought to be secondary to acute exacerbation of peripheral neuropathy. Course complicated by decline in functional deficits, fluctuating blood pressures (ranging from 98-142/57-96), intermittent tachycardia, new initiation on coumadin. The patient is medically stable, however, requires ongoing medical management. Pt is appropriate for inpatient rehabilitation admission and is thought to be able to tolerate at least 3 hours of therapy a day, 5 days a week including 1.5 hours of physical therapy and 1.5 hours of occupational therapy. Patient is able to understand and follow basic directions and has attainable rehab goals. Potential barriers/ complications include falls, bleeding, worsening parasthesias, syncope, hypoglycemia. Plan 1. Rehabilitation- Pt will undergo multidisciplinary/integrative rehab PT/OT, Nursing. Areas to be addressed include, but are not limited to PT for mobility , strengthening, transfer training, ROM, endurance, stairs, balance; OT for ADLs , household tasks, adaptive equipment; Nursing for carryover of therapies, pain control, education, skin integrity, medication management, bowel/bladder management; oil well services dispatcher for discharge planning and equipment needs. Potential interventions include appropriate assistive device or adaptive equipment. Expected overall level of functional improvement by discharge is Gregorio for gait, transfers, ADLs. Pt will tentatively be discharged home with outpatient PT. Estimated length of stay is 7-10 days. 2. PVD- s/p left femoral-femoral bypass; continue full anti-coagulation; therapeutic INR 3. Peripheral Neuropathy- lyrica; prn percocet 4. ataxic gait- continue aggressive PT/OT to address ataxia, balance, coordination, strengthening 5. HTN- continue on current regimen; follow closely for hypotension 6. DM- stable on current regimen - Patient Problems (1) Atherosclerosis of [place] arteries of extremity with rest pain Current Visit: No Status: Acute Qualifiers: Peripheral atherosclerosis location: lower extremity Laterality: left Qualified Code(s): I70.222 - Atherosclerosis of [place] arteries of extremities with rest pain, left leg (2) Peripheral neuropathy Current Visit: Yes Status: Acute Qualifiers: Peripheral neuropathy type: polyneuropathy associated with underlying disease Qualified Code(s): G63 - Polyneuropathy in diseases classified elsewhere (3) Ataxia Current Visit: Yes Status: Acute (4) HTN (hypertension) Current Visit: Yes Status: Chronic Qualifiers: Hypertension type: essential hypertension Qualified Code(s): I10 - Essential (primary) hypertension (5) Diabetes Current Visit: Yes Status: Chronic Qualifiers: Diabetes mellitus type: type 2 Diabetes mellitus complication status: with hyperglycemia Diabetes mellitus complication detail: D Diabetic retinopathy severity: D Proliferative retinopathy type: P Diabetes mellitus macular edema: D Diabetes mellitus nursing home insulin use: with home based assistant use Laterality: L Chronic kidney disease stage: C Qualified Code(s): E11.65 - Type 2 diabetes mellitus with hyperglycemia; Z79.4 - care home (current) use of insulin
[2016-05-02] MEDS ORDERED: COUMADIN PO SCH ×4 (17:00)
[2016-05-02] MEDS: LEVEMIR SUB-Q SCH (21:00)
[2016-05-02] MEDS: XANAX PO PRN (22:04)
[2016-05-03 04:41] LABS: INR 3.38 (0.87-1.13)
[2016-05-03] MEDS: PLAVIX PO SCH (09:04)
[2016-05-03] MEDS: TRENTAL PO SCH (09:05)
[2016-05-03] MEDS: GLUCOPHAGE PO SCH ×2 (09:05→22:34)
[2016-05-03] MEDS: IMDUR PO SCH (09:06)
[2016-05-03] MEDS: LYRICA PO SCH ×4 (09:07→22:35)
[2016-05-03] MEDS: LOPRESSOR PO SCH ×2 (09:07→22:26)
--- NOTE | 2016-05-03 09:36 | IRU Plan of Care ---
Interdisciplinary Plan of Care - IP IRU INTERDISCIPLINARY PLAN: [facility] Inpatient Rehab Unit Plan of Care IRU Interdisciplinary Care Plan Start: 05/01/16 20: 16 Freq: Admission then PRN Status: Active Document 05/03/16 09:09 DB (Rec: 05/03/16 09:12 DB [id number]) Interdisciplinary Problem List Interdisciplinary Problem List Interdisciplinary Problem List Impaired Bathing/Grooming Query Text:Answers will Trigger Problems Impaired Dressing and Outcomes on Worklist. Impaired Mobility Impaired Transfers Impaired Toileting Pain Management Knowledge Deficits Impaired Skin/Tissue Integrity Impaired Home Management Impaired Safety Diabetes Education IRU Interdisciplinary Care Plan Therapy Services Therapy Services Will Include: Physical Therapy Query Text:Patient will be seen for a Occupational Therapy minimum of 3 hours of daily therapy 5 out of 7 days a week. Therapy intensity may be adjusted within a 7 consecutive day period to effectively serve the individual needs of the patient. Treatment Frequency/Intensity/Duration Treatment Frequency 5 days per week Treatment Intensity 1.5 hours per discipline (PT/OT ) daily Treatment Duration 10-14 days Problem Area: Eating/Swallowing Eating/Swallowing Outcomes Eating/Swallowing Interventions Problem Area: Bathing/Grooming Bathing/Grooming Outcomes Improve Stark w/ Grooming Improve Stark w/ Bathing Bathing/Grooming Interventions ADL Training Use of Assistive Devices Therapeutic Exercise Therapeutic Activity Balance Work Activity Tolerance Work Patient/Caregiver Education Problem Area: Dressing Dressing Outcomes Improve Stark w/ UB Dressing Improve Stark w/ LB Dressing Dressing Interventions ADL Training Use of Assistive Devices Therapeutic Exercise Balance Work Patient/Caregiver Education Problem Area: Mobility Mobility Outcomes Improve Stark w/ Ambulation Improve Stark w/ Stairs /Curb Mobility Interventions Therapeutic Exercise Neuromuscular Re-Ed. Activity Tolerance Work Use of Assistive Devices Patient/Caregiver Education Gait Training Problem Area: Transfers Transfers Outcomes Improve Stark w/ Bed Transfers Improve Stark w/ Toilet Transfers Improve Stark w/ Tub/ Shower Transfers Improve Stark w/ Car Transfers Transfers Interventions Transfer Training Therapeutic Exercise Neuromuscular Re-Education Activity Tolerance Work Use of Assistive Devices Patient/Caregiver Education Problem Area: Bowel/Bladder Managment Bowel/Bladder Outcomes Bowel/Bladder Interventions Problem Area: Toileting Toileting Outcomes Improve Stark w/ Toileting Toileting Interventions ADL Training Balance Work Use of Assistive Devices Patient/Caregiver Education Problem Area: Nutrition Nutrition Outcomes Understand and Comply w/ Diet Improve/Maintain Oral Intake Nutrition Interventions Nutritional Counseling Monitor Nutrient Intake Patient/Caregiver Education Problem Area: Comprehension Comprehension Outcomes Comprehension Interventions Problem Area: Expression Expression Outcomes Expression Interventions Problem Area: Problem Solving Problem Solving Outcomes Problem Solving Interventions Problem Area: Memory Memory Outcomes Memory Interventions Problem Area: Pain Management Pain Management Outcomes Demonstrate/Verbalize Pain Strategies Pain Management Interventions Medication Management Positioning/Turning Patient/Caregiver Education Problem Area: Knowledge Deficits Knowledge Deficits Outcomes Demonstrate Ability to Manage Blood Glucose Knowledge Deficits Interventions Medication Use Education Problem Area: Skin/Tissue Integrity Skin/Tissue Integrity Outcomes Exhibit Healing of Wound/ Incision Skin/Tissue Integrity Interventions Skin/Wound Care Pressure Relief Instruction Positioning/Turning Problem Area: Social Interaction Social Interaction Outcomes Social Interaction Interventions Problem Area: Adjustment to Disability Adjustment to Disability Outcomes Adjustment to Disability Interventions Problem Area: Discharge Concerns Discharge Concerns Outcomes Discharge Home w/ Necessary Equipment Have Home Health/Outpatient Services Discharge Concerns Interventions Discharge Planning Family/Caregiver Conference Family/Caregiver Training Problem Area: Community Reintegration Community Reintegration Outcomes Demonstrate Understanding of Community Resources Community Reintegration Interventions Provide Community Resources Problem Area: Home Management Home Management Outcomes Improve Stark w/ Home Management Home Management Interventions Meal Preparation Clothing Care Activity Tolerance Work Patient/Caregiver Education Problem Area: Safety Safety Outcomes Provide Safe Environment Perform Selfcare Safely Demonstrate Good Safety w/ Transfers/Mobility Safety Interventions Identify Fall Risk [place] Pt. to Environment Reduce Environmental Hazards Problem Area: Medication Education Medication Education Outcomes Patient/Caregiver will Verbalize Understanding of Medications Medication Education Interventions Explain Administration/Side Effects/Interactions Problem Area: Diabetes Education Diabetes Education Outcomes Demonstrate Knowledge of Resources Availlable in Diabetic Ed. Folder Diabetes Education Interventions Give Pt. Diabetes Education Folder Discuss Pathophysiology of Diabetes Problem Area: Oxygenation Oxygenation Outcomes Oxygenation Interventions Problem Area: Cardiovascular Cardiovascular Outcomes Cardiovascular Interventions Physician Only Medical Prognosis and Rehabilitation Patient demonstrates good Potential (Completed by Physician) rehab potential. Medical Prognosis: Good This plan of care has been developed based on the findings from the pre- admission assessment, post admission physician evaluation, information gathered from the assessments from all therapy disciplines and other pertinent clinicians. The plan of care has been reviewed and discussed in collaboration with the interdisciplinary team. The plan of care will be reviewed and updated at least weekly. 45 y.o. male s/p left femoral-femoral bypass with post-operative bilateral lower extremity weakness and gait dysfunction thought to be secondary to acute exacerbation of peripheral neuropathy. Course complicated by decline in functional deficits, fluctuating blood pressures (ranging from 98-142/57-96), intermittent tachycardia, new initiation on coumadin. The patient remains at risk for falls, bleeding, worsening parasthesias, syncope, hypoglycemia. Blood sugars and blood pressures are stable; INR is currently supratherapeutic and coumadin dose was adjusted. Pt continues with functional deficits and remains an appropriate candidate for IRU admission.
[2016-05-03] MEDS: PERCOCET 5/325 PO PRN ×3 (09:53→22:36)
[2016-05-03] MEDS: GLUCOTROL XL PO SCH (12:57)
--- NOTE | 2016-05-03 14:01 | Progress Note ---
Assessment and Plan 45 y.o. male s/p left femoral-femoral bypass with post-operative bilateral lower extremity weakness and gait dysfunction thought to be secondary to acute exacerbation of peripheral neuropathy - PVD- s/p left femoral-femoral bypass; on coumadin; supratherapeutic INR, dose adjusted per pharmacy - Peripheral Neuropathy- lyrica; prn percocet - ataxic gait- ongoing gait training with PT - HTN/DM- stable on current regimen - Patient Problems (1) Atherosclerosis of [place] arteries of extremity with rest pain Current Visit: No Status: Acute Qualifiers: Peripheral atherosclerosis location: lower extremity Laterality: left Qualified Code(s): I70.222 - Atherosclerosis of [place] arteries of extremities with rest pain, left leg (2) Peripheral neuropathy Current Visit: Yes Status: Acute Qualifiers: Peripheral neuropathy type: polyneuropathy associated with underlying disease Qualified Code(s): G63 - Polyneuropathy in diseases classified elsewhere (3) Ataxia Current Visit: Yes Status: Acute (4) HTN (hypertension) Current Visit: Yes Status: Chronic Qualifiers: Hypertension type: essential hypertension Qualified Code(s): I10 - Essential (primary) hypertension (5) Diabetes Current Visit: Yes Status: Chronic Qualifiers: Diabetes mellitus type: type 2 Diabetes mellitus complication status: with hyperglycemia Diabetes mellitus complication detail: D Diabetic retinopathy severity: D Proliferative retinopathy type: P Diabetes mellitus macular edema: D Diabetes mellitus termite renewal inspector insulin use: with termite renewal inspector use Laterality: L Chronic kidney disease stage: C Qualified Code(s): E11.65 - Type 2 diabetes mellitus with hyperglycemia; Z79.4 - termite exterminator (current) use of insulin Subjective Date of service: 05/03/16 Principal diagnosis: s/p left femoral-femoral bypass Interval history: Pt seen in dining room on today; F/U IPR course, s/p left femoral-femoral bypass with post-operative bilateral lower extremity weakness and gait dysfunction thought to be secondary to acute exacerbation of peripheral neuropathy. Pt reports difficulty sleeping Objective - Constitutional Vitals: Vital Signs - 12hr 05/03/16 05/03/16 05/03/16 08:00 09:06 09:07 Pulse Rate 90 90 Pulse Rate [ 90 Right Brachial] Respiratory 20 Rate Blood Pressure 137/97 137/97 Blood Pressure 137/97 [Right Arm] O2 Sat by Pulse 93 Oximetry General appearance: Present: no acute distress, obese - EENT Eyes: EOM intact ENT: hearing intact - Neck Neck: supple, normal ROM - Respiratory Respiratory effort: normal Respiratory: bilateral: CTA - Cardiovascular Rhythm: regular Heart Sounds: Present: S1 & S2 Extremities: No edema - Gastrointestinal General gastrointestinal: Present: soft, non-tender, non-distended, normal bowel sounds - Integumentary Integumentary: clear, warm - Neurologic Neurologic: CNII-XII intact - Psychiatric Psychiatric: appropriate mood/affect, intact judgment & insight, memory intact, cooperative - Allied health notes Allied health notes reviewed: nursing (supervision-modA for morning ADLs with nursing) - Labs CBC & Chem 7: 05/02/16 04:15 05/02/16 04:15 Labs: Abnormal lab results 05/02/16 05/03/16 05/03/16 Range/Units 11:30 04:11 06:29 PT 34.4 H (12.2-14.9) Sec. INR 3.38 H (0.87-1.13) POC Glucose 147 H 119 H (70-105) 05/03/16 Range/Units 11:52 PT (12.2-14.9) Sec. INR (0.87-1.13) POC Glucose 117 H (70-105)
[2016-05-03] MEDS: COUMADIN PO SCH (22:36)
[2016-05-03] MEDS: NOVOLOG SUB-Q SCH ×2 (22:44→22:45)
[2016-05-03] MEDS: LEVEMIR SUB-Q SCH (22:45)
[2016-05-03] MEDS: ASPIRIN PO SCH (22:50)
[2016-05-04] MEDS: AMBIEN PO PRN ×2 (00:23→21:28)
[2016-05-04 05:18] LABS: INR 3.14 (0.87-1.13)
[2016-05-04] MEDS: PERCOCET 5/325 PO PRN ×2 (06:43→13:01)
[2016-05-04] MEDS: GLUCOTROL XL PO SCH (08:39)
[2016-05-04] MEDS: GLUCOPHAGE PO SCH ×2 (08:39→16:59)
[2016-05-04] MEDS: LYRICA PO SCH ×3 (08:39→21:00)
[2016-05-04] MEDS: ASPIRIN PO SCH ×2 (08:39→12:50)
[2016-05-04] MEDS: IMDUR PO SCH (08:40)
[2016-05-04] MEDS: PLAVIX PO SCH (08:43)
[2016-05-04] MEDS: LOPRESSOR PO SCH ×2 (08:43→21:30)
[2016-05-04] MEDS: NOVOLOG SUB-Q SCH ×3 (08:44→16:59)
[2016-05-04] MEDS: TRENTAL PO SCH ×3 (08:45→21:00)
[2016-05-04] MEDS: COUMADIN PO SCH (16:59)
[2016-05-04] MEDS: XANAX PO PRN (21:36)
[2016-05-04] MEDS: LEVEMIR SUB-Q SCH (21:39)
[2016-05-05 06:43] LABS: INR 2.94 (0.87-1.13)
[2016-05-05] MEDS: PLAVIX PO SCH (09:02)
[2016-05-05] MEDS: TRENTAL PO SCH ×3 (09:03→21:17)
[2016-05-05] MEDS: GLUCOTROL XL PO SCH (09:03)
[2016-05-05] MEDS: LYRICA PO SCH ×3 (09:03→21:00)
[2016-05-05] MEDS: IMDUR PO SCH (09:04)
[2016-05-05] MEDS: GLUCOPHAGE PO SCH ×2 (09:04→17:24)
[2016-05-05] MEDS: NOVOLOG SUB-Q SCH ×3 (09:05→17:25)
[2016-05-05] MEDS: LOPRESSOR PO SCH ×2 (09:05→21:18)
[2016-05-05] MEDS: ASPIRIN PO SCH (09:12)
[2016-05-05] MEDS: COUMADIN PO SCH (17:24)
[2016-05-05] MEDS: PERCOCET 5/325 PO PRN (17:27)
[2016-05-05] MEDS: XANAX PO PRN (21:17)
[2016-05-05] MEDS: AMBIEN PO PRN (21:18)
[2016-05-05] MEDS: LEVEMIR SUB-Q SCH (21:58)
[2016-05-06 05:15] LABS: INR 2.56 (0.87-1.13)
[2016-05-06] MEDS: PERCOCET 5/325 PO PRN (05:29)
[2016-05-06] MEDS: ASPIRIN PO SCH ×2 (08:40→09:15)
[2016-05-06] MEDS: GLUCOPHAGE PO SCH ×2 (08:41→17:22)
[2016-05-06] MEDS: TRENTAL PO SCH ×3 (08:41→21:00)
[2016-05-06] MEDS: GLUCOTROL XL PO SCH (08:41)
[2016-05-06] MEDS: PLAVIX PO SCH (08:41)
[2016-05-06] MEDS: LYRICA PO SCH ×3 (08:42→21:00)
[2016-05-06] MEDS: LOPRESSOR PO SCH ×2 (08:42→21:11)
[2016-05-06] MEDS: NOVOLOG SUB-Q SCH ×3 (08:43→17:23)
--- NOTE | 2016-05-06 12:27 | Progress Note ---
Assessment and Plan 45 y.o. male s/p left femoral-femoral bypass with post-operative bilateral lower extremity weakness and gait dysfunction thought to be secondary to acute exacerbation of peripheral neuropathy - PVD- s/p left femoral-femoral bypass; on coumadin; therapeutic INR on current dose; good pain control - Peripheral Neuropathy- lyrica; prn percocet - ataxic gait- improving gait distance since admission - HTN/DM- remain stable - Patient Problems (1) Atherosclerosis of [place] arteries of extremity with rest pain Current Visit: No Status: Acute Qualifiers: Peripheral atherosclerosis location: lower extremity Laterality: left Qualified Code(s): I70.222 - Atherosclerosis of [place] arteries of extremities with rest pain, left leg (2) Peripheral neuropathy Current Visit: Yes Status: Acute Qualifiers: Peripheral neuropathy type: polyneuropathy associated with underlying disease Qualified Code(s): G63 - Polyneuropathy in diseases classified elsewhere (3) Ataxia Current Visit: Yes Status: Acute (4) HTN (hypertension) Current Visit: Yes Status: Chronic Qualifiers: Hypertension type: essential hypertension Qualified Code(s): I10 - Essential (primary) hypertension (5) Diabetes Current Visit: Yes Status: Chronic Qualifiers: Diabetes mellitus type: type 2 Diabetes mellitus complication status: with hyperglycemia Diabetes mellitus complication detail: D Diabetic retinopathy severity: D Proliferative retinopathy type: P Diabetes mellitus macular edema: D Diabetes mellitus long term care phlebotomist insulin use: with long term care phlebotomist use Laterality: L Chronic kidney disease stage: C Qualified Code(s): E11.65 - Type 2 diabetes mellitus with hyperglycemia; Z79.4 - ferry terminal supervisor (current) use of insulin Subjective Date of service: 05/06/16 Principal diagnosis: s/p left femoral-femoral bypass Interval history: Pt seen in OT gym this AM; F/U IPR course, s/p left femoral-femoral bypass with post-operative bilateral lower extremity weakness and gait dysfunction thought to be secondary to acute exacerbation of peripheral neuropathy. No new complaints reported; left calf pain is improving; ambulating better Objective - Constitutional Vitals: Vital Signs - 12hr 05/06/16 05/06/16 08:00 08:42 Temperature 97.5 F L Pulse Rate 77 Pulse Rate [ 77 Right Brachial] Respiratory 20 Rate Blood Pressure 125/76 Blood Pressure 125/76 [Right Arm] O2 Sat by Pulse 97 Oximetry General appearance: Present: no acute distress, obese - EENT Eyes: EOM intact ENT: hearing intact - Neck Neck: supple, normal ROM - Respiratory Respiratory effort: normal Respiratory: bilateral: CTA - Cardiovascular Rhythm: regular Heart Sounds: Present: S1 & S2 Extremities: No edema - Gastrointestinal General gastrointestinal: Present: soft, non-tender, normal bowel sounds - Integumentary Integumentary: clear - Neurologic Neurologic: CNII-XII intact, moves all extremities (4/5 strength BLE) - Psychiatric Psychiatric: appropriate mood/affect, intact judgment & insight, memory intact, cooperative - Allied health notes Allied health notes reviewed: nursing (supervision to I for ADLs), PT (180 feet x2 for gait; SBA for transfers) - Labs CBC & Chem 7: 05/02/16 04:15 05/02/16 04:15 Labs: Abnormal lab results 05/05/16 05/05/16 05/06/16 Range/Units 16:36 20:41 04:44 PT 27.6 H (12.2-14.9) Sec. INR 2.56 H (0.87-1.13) POC Glucose 118 H 142 H (70-105) 05/06/16 Range/Units 05:54 PT (12.2-14.9) Sec. INR (0.87-1.13) POC Glucose 178 H (70-105)
[2016-05-06] MEDS: IMDUR PO SCH (13:54)
[2016-05-06] MEDS ORDERED: COUMADIN PO SCH (17:00)
[2016-05-06] MEDS: XANAX PO PRN (21:09)
[2016-05-06] MEDS: LEVEMIR SUB-Q SCH (21:12)
[2016-05-07] MEDS: PERCOCET 5/325 PO PRN ×4 (04:13→22:21)
[2016-05-07 05:03] LABS: INR 2.22 (0.87-1.13)
[2016-05-07] MEDS: GLUCOPHAGE PO SCH ×2 (08:27→17:26)
[2016-05-07] MEDS: PLAVIX PO SCH (08:27)
[2016-05-07] MEDS: LYRICA PO SCH ×3 (08:27→22:11)
[2016-05-07] MEDS: LOPRESSOR PO SCH ×2 (08:28→22:14)
[2016-05-07] MEDS: TRENTAL PO SCH ×5 (08:28→23:24)
[2016-05-07] MEDS: IMDUR PO SCH (08:29)
[2016-05-07] MEDS: NOVOLOG SUB-Q SCH ×3 (08:29→16:30)
[2016-05-07] MEDS: GLUCOTROL XL PO SCH (08:29)
[2016-05-07] MEDS: ASPIRIN PO SCH ×2 (08:38→10:25)
--- NOTE | 2016-05-07 16:28 | Progress Note ---
Assessment and Plan 45 y.o. male s/p left femoral-femoral bypass with post-operative bilateral lower extremity weakness and gait dysfunction thought to be secondary to acute exacerbation of peripheral neuropathy - PVD- s/p left femoral-femoral bypass; on coumadin; remains therapeutic INR; pain well controlled - Peripheral Neuropathy- lyrica; prn percocet - ataxic gait- ambulating with slovenian knee cage to address hyperextension - HTN- BP elevated on today; follow and adjust meds if needed - DM- episode of hypoglycemia overnight (69); levemir dose held; tonight dose reduced; follow - team conference held on today- pt is independent with eating; Gregorio for grooming, bathing, UB dressing, toileting, bed mobility, wheelchair mobility; supervision for LB dressing, toilet/shower transfers; SBA for bed/chair/WC mobility; ambualting 350 feet with CGA using right sl[place] knee cage and RW; SBA for stairs, supervision for curb. Anticipated D/C date is 05/10 - Patient Problems (1) Atherosclerosis of [place] arteries of extremity with rest pain Current Visit: No Status: Acute Qualifiers: Peripheral atherosclerosis location: lower extremity Laterality: left Qualified Code(s): I70.222 - Atherosclerosis of [place] arteries of extremities with rest pain, left leg (2) Peripheral neuropathy Current Visit: Yes Status: Acute Qualifiers: Peripheral neuropathy type: polyneuropathy associated with underlying disease Qualified Code(s): G63 - Polyneuropathy in diseases classified elsewhere (3) Ataxia Current Visit: Yes Status: Acute (4) HTN (hypertension) Current Visit: Yes Status: Chronic Qualifiers: Hypertension type: essential hypertension Qualified Code(s): I10 - Essential (primary) hypertension (5) Diabetes Current Visit: Yes Status: Chronic Qualifiers: Diabetes mellitus type: type 2 Diabetes mellitus complication status: with hyperglycemia Diabetes mellitus complication detail: D Diabetic retinopathy severity: D Proliferative retinopathy type: P Diabetes mellitus macular edema: D Diabetes mellitus care home insulin use: with laborer marine terminal use Laterality: L Chronic kidney disease stage: C Qualified Code(s): E11.65 - Type 2 diabetes mellitus with hyperglycemia; Z79.4 - rodent exterminator (current) use of insulin Subjective Date of service: 05/07/16 Principal diagnosis: s/p left femoral-femoral bypass Interval history: Pt seen in OT gym this AM; F/U IPR course, s/p left femoral-femoral bypass with post-operative bilateral lower extremity weakness and gait dysfunction thought to be secondary to acute exacerbation of peripheral neuropathy. Pt reports left calf spasms with gait training and exercise; also with occasional hyperextension at RLE with ambulation Objective - Constitutional Vitals: Vital Signs - 12hr 05/07/16 05/07/16 05/07/16 08:00 08:28 08:29 Pulse Rate 84 84 Pulse Rate [ 84 Apical] Respiratory 20 Rate Blood Pressure 150/94 150/94 Blood Pressure 150/94 [Right Arm] O2 Sat by Pulse 97 Oximetry 05/07/16 10:22 Pulse Rate Pulse Rate [ Apical] Respiratory 20 Rate Blood Pressure Blood Pressure [Right Arm] O2 Sat by Pulse Oximetry General appearance: Present: no acute distress, obese - EENT Eyes: EOM intact ENT: hearing intact - Neck Neck: supple, normal ROM - Respiratory Respiratory effort: normal Extremities: No edema - Gastrointestinal General gastrointestinal: Present: soft, non-tender - Integumentary Integumentary: clear - Musculoskeletal Musculoskeletal: strength equal bilaterally - Neurologic Neurologic: CNII-XII intact, moves all extremities - Psychiatric Psychiatric: appropriate mood/affect, intact judgment & insight, memory intact, cooperative - Labs CBC & Chem 7: 05/02/16 04:15 05/02/16 04:15 Labs: Abnormal lab results 05/06/16 05/07/16 05/07/16 Range/Units 20:46 04:20 06:34 PT 24.7 H (12.2-14.9) Sec. INR 2.22 H (0.87-1.13) POC Glucose 69 L 129 H (70-105)
[2016-05-07] MEDS ORDERED: COUMADIN PO SCH (17:00)
[2016-05-07] MEDS: LEVEMIR SUB-Q SCH ×2 (23:25→23:26)
[2016-05-08] MEDS: AMBIEN PO PRN ×2 (00:30→22:40)
[2016-05-08 05:07] LABS: INR 2.13 (0.87-1.13)
[2016-05-08] MEDS: NOVOLOG SUB-Q SCH ×3 (09:12→16:49)
[2016-05-08] MEDS: LYRICA PO SCH ×3 (09:22→19:51)
[2016-05-08] MEDS: TRENTAL PO SCH ×3 (09:22→19:52)
[2016-05-08] MEDS: GLUCOPHAGE PO SCH ×2 (09:22→16:44)
[2016-05-08] MEDS: IMDUR PO SCH (09:22)
[2016-05-08] MEDS: LOPRESSOR PO SCH ×2 (09:23→22:42)
[2016-05-08] MEDS: PERCOCET 5/325 PO PRN ×3 (09:24→22:40)
[2016-05-08] MEDS: ASPIRIN PO SCH (09:24)
[2016-05-08] MEDS: PLAVIX PO SCH (09:25)
[2016-05-08] MEDS: GLUCOTROL XL PO SCH (09:25)
--- NOTE | 2016-05-08 16:29 | Progress Note ---
Assessment and Plan 45 y.o. male s/p left femoral-femoral bypass with post-operative bilateral lower extremity weakness and gait dysfunction thought to be secondary to acute exacerbation of peripheral neuropathy - PVD- s/p left femoral-femoral bypass; on coumadin; remains therapeutic INR; pain well controlled; may need ultrasound of left calf to identify nature of tenderness - Peripheral Neuropathy- lyrica; prn percocet - ataxic gait- ambulating with dutch knee cage to address hyperextension; brace ordered on today for home use - HTN- stable - DM- levemir again held on last night, blood sugar 69 - family training completed with on today - Patient Problems (1) Atherosclerosis of [place] arteries of extremity with rest pain Current Visit: No Status: Acute Qualifiers: Peripheral atherosclerosis location: lower extremity Laterality: left Qualified Code(s): I70.222 - Atherosclerosis of [place] arteries of extremities with rest pain, left leg (2) Peripheral neuropathy Current Visit: Yes Status: Acute Qualifiers: Peripheral neuropathy type: polyneuropathy associated with underlying disease Qualified Code(s): G63 - Polyneuropathy in diseases classified elsewhere (3) Ataxia Current Visit: Yes Status: Acute (4) HTN (hypertension) Current Visit: Yes Status: Chronic Qualifiers: Hypertension type: essential hypertension Qualified Code(s): I10 - Essential (primary) hypertension (5) Diabetes Current Visit: Yes Status: Chronic Qualifiers: Diabetes mellitus type: type 2 Diabetes mellitus complication status: with hyperglycemia Diabetes mellitus complication detail: D Diabetic retinopathy severity: D Proliferative retinopathy type: P Diabetes mellitus macular edema: D Diabetes mellitus mcc insulin use: with terminal press operator use Laterality: L Chronic kidney disease stage: C Qualified Code(s): E11.65 - Type 2 diabetes mellitus with hyperglycemia; Z79.4 - longterm (current) use of insulin Subjective Date of service: 05/08/16 Principal diagnosis: s/p left femoral-femoral bypass Interval history: Pt seen in room this afternoon; F/U IPR course, s/p left femoral-femoral bypass with post-operative bilateral lower extremity weakness and gait dysfunction thought to be secondary to acute exacerbation of peripheral neuropathy. Pt with left calf pain/nodul; reportedly chronic, however, fluctuating in size Objective - Constitutional Vitals: Vital Signs - 12hr 05/08/16 05/08/16 05/08/16 08:00 09:22 09:23 Pulse Rate 85 85 Pulse Rate [ 85 Right Brachial] Respiratory 20 Rate Blood Pressure 142/80 142/80 Blood Pressure 142/80 [Right Arm] O2 Sat by Pulse 94 Oximetry 05/08/16 05/08/16 10:00 14:00 Pulse Rate Pulse Rate [ 85 94 H Right Brachial] Respiratory 18 Rate Blood Pressure Blood Pressure 146/81 [Right Arm] O2 Sat by Pulse Oximetry General appearance: Present: no acute distress, obese - EENT Eyes: EOM intact ENT: hearing intact - Neck Neck: supple, normal ROM - Respiratory Respiratory effort: normal Extremity abnormal: tenderness (left lateral calf) - Neurologic Neurologic: CNII-XII intact, moves all extremities - Psychiatric Psychiatric: appropriate mood/affect, intact judgment & insight, memory intact, cooperative - Allied health notes Allied health notes reviewed: PT (supervision for transfers and gait), OT (SBA for transfers) - Labs CBC & Chem 7: 05/02/16 04:15 05/02/16 04:15 Labs: Abnormal lab results 05/07/16 05/08/16 Range/Units 21:26 04:17 PT 23.9 H (12.2-14.9) Sec. INR 2.13 H (0.87-1.13) POC Glucose 69 L (70-105)
[2016-05-08] MEDS: COUMADIN PO SCH ×2 (16:44→16:45)
[2016-05-08] MEDS: LEVEMIR SUB-Q SCH (22:37)
[2016-05-09 05:19] LABS: INR 2.11 (0.87-1.13)
[2016-05-09] MEDS: PERCOCET 5/325 PO PRN ×2 (06:10→20:36)
[2016-05-09] MEDS: NOVOLOG SUB-Q SCH ×3 (07:30→17:29)
[2016-05-09] MEDS: LYRICA PO SCH ×3 (09:51→20:35)
[2016-05-09] MEDS: IMDUR PO SCH (09:51)
[2016-05-09] MEDS: TRENTAL PO SCH ×3 (09:52→20:36)
[2016-05-09] MEDS: GLUCOPHAGE PO SCH ×2 (09:52→17:29)
[2016-05-09] MEDS: LOPRESSOR PO SCH ×2 (09:52→21:43)
[2016-05-09] MEDS: ASPIRIN PO SCH (09:53)
[2016-05-09] MEDS: GLUCOTROL XL PO SCH (09:53)
[2016-05-09] MEDS: PLAVIX PO SCH (09:53)
--- NOTE | 2016-05-09 17:23 | Progress Note ---
Assessment and Plan 45 y.o. male s/p left femoral-femoral bypass with post-operative bilateral lower extremity weakness and gait dysfunction thought to be secondary to acute exacerbation of peripheral neuropathy - PVD- s/p left femoral-femoral bypass; on coumadin; remains therapeutic INR; pain well controlled; may need ultrasound of left calf to identify nature of tenderness - Peripheral Neuropathy- lyrica; prn percocet - ataxic gait- ambulating with american knee cage to address hyperextension; pending delivery of american knee cage - HTN- stable - DM- blood sugars controlled on metformin; levemir being held due to low blood sugars - tentative d/c home on tomorrow - Patient Problems (1) Atherosclerosis of [place] arteries of extremity with rest pain Current Visit: No Status: Acute Qualifiers: Peripheral atherosclerosis location: lower extremity Laterality: left Qualified Code(s): I70.222 - Atherosclerosis of [place] arteries of extremities with rest pain, left leg (2) Peripheral neuropathy Current Visit: Yes Status: Acute Qualifiers: Peripheral neuropathy type: polyneuropathy associated with underlying disease Qualified Code(s): G63 - Polyneuropathy in diseases classified elsewhere (3) Ataxia Current Visit: Yes Status: Acute (4) HTN (hypertension) Current Visit: Yes Status: Chronic Qualifiers: Hypertension type: essential hypertension Qualified Code(s): I10 - Essential (primary) hypertension (5) Diabetes Current Visit: Yes Status: Chronic Qualifiers: Diabetes mellitus type: type 2 Diabetes mellitus complication status: with hyperglycemia Diabetes mellitus complication detail: D Diabetic retinopathy severity: D Proliferative retinopathy type: P Diabetes mellitus macular edema: D Diabetes mellitus termite treater insulin use: with snf use Laterality: L Chronic kidney disease stage: C Qualified Code(s): E11.65 - Type 2 diabetes mellitus with hyperglycemia; Z79.4 - termite treater (current) use of insulin Subjective Date of service: 05/09/16 Principal diagnosis: s/p left femoral-femoral bypass Interval history: Pt seen this afternoon; F/U IPR course, s/p left femoral-femoral bypass with post-operative bilateral lower extremity weakness and gait dysfunction thought to be secondary to acute exacerbation of peripheral neuropathy. No new complaints on today Objective - Constitutional Vitals: Vital Signs - 12hr 05/09/16 05/09/16 05/09/16 08:00 09:51 10:00 Temperature 98.1 F Pulse Rate 72 Pulse Rate [ 72 72 Right Brachial] Respiratory 22 22 Rate Blood Pressure 140/90 Blood Pressure 140/90 [Right Arm] O2 Sat by Pulse 100 100 Oximetry General appearance: Present: no acute distress - EENT Eyes: EOM intact ENT: hearing intact - Neck Neck: supple, normal ROM - Respiratory Respiratory effort: normal - Gastrointestinal General gastrointestinal: Present: soft, non-tender, non-distended - Neurologic Neurologic: CNII-XII intact, moves all extremities - Psychiatric Psychiatric: appropriate mood/affect, intact judgment & insight, memory intact, cooperative - Allied health notes Allied health notes reviewed: PT (supervision with gait and transfers with RW; CGA for transfers with quad cane) - Labs CBC & Chem 7: 05/02/16 04:15 05/02/16 04:15 Labs: Abnormal lab results 05/09/16 05/09/16 Range/Units 04:48 05:50 PT 23.7 H (12.2-14.9) Sec. INR 2.11 H (0.87-1.13) POC Glucose 139 H (70-105)
[2016-05-09] MEDS: COUMADIN PO SCH ×2 (17:29→17:30)
[2016-05-09] MEDS: LEVEMIR SUB-Q SCH (21:41)
[2016-05-09] MEDS: XANAX PO PRN (23:49)
[2016-05-09] MEDS: AMBIEN PO PRN (23:49)
[2016-05-10] MEDS: PERCOCET 5/325 PO PRN ×2 (05:38→10:11)
[2016-05-10 06:13] LABS: INR 2.02 (0.87-1.13)
[2016-05-10 08:31] VITALS: BP 125/87
[2016-05-10] MEDS: TRENTAL PO SCH ×2 (10:10→14:41)
[2016-05-10] MEDS: LYRICA PO SCH ×2 (10:10→14:41)
[2016-05-10] MEDS: ASPIRIN PO SCH (10:11)
[2016-05-10] MEDS: IMDUR PO SCH (10:11)
[2016-05-10] MEDS: GLUCOPHAGE PO SCH (10:11)
[2016-05-10] MEDS: PLAVIX PO SCH (10:12)
[2016-05-10] MEDS: GLUCOTROL XL PO SCH (10:12)
[2016-05-10] MEDS: LOPRESSOR PO SCH (10:14)
[2016-05-10] MEDS: NOVOLOG SUB-Q SCH ×2 (10:19→13:07)
--- NOTE | 2016-05-10 13:15 | Discharge Summary ---
Providers - Providers Date of Admission: 05/01/16 19:47 Date of discharge: 05/10/16 Attending physician: WALTER LIMA 05/01/16 20:51 Occupational Therapy Evaluate and Treat [CONS] Routine Comment: Reason For Exam: PVD, gait dysfunction Physical Therapy Evaluation and Treat [CONS] Routine Comment: Reason For Exam: PVD, gait dysfunction 05/10/16 08:49 Consult to Physician [CONS] Routine Consulting Provider: GAURAV REPRESENTATIVE Reason For Exam: F/U left calf pain Place consult to:: JOSE ROSALES Notified:: YES Phone number called:: STATISTICAL MACHINE MECHANIC OVER PAGED Was contact made?: Yes If yes, spoke with:: JOSE ROSALES Time called:: 10:40 Comment:: SPOKE WITH JOSE ROSALES, STATES DR LIMA SPOKE WITH HIM Primary care physician: YAMINI HURLEY Hospitalization Reason for admission: PVD, s/p fem-fem bypass Condition: Stable Hospital course: 45 y.o. male with history of PVD/atherosclerosis and associated rest pain who presented due to progressively worsening LLE claudication. Pt had prior outpatient revascularization procedures to attempt to relieve rest pain, however , this was unsuccessful. Pt was admitted to [facility] for left femoral-femoral bypass on 04/19. Post-operatively, pt with acute onset of bilateral lower extremity weakness and numbness; subsequent difficulty ambulating. Neurology was consulted; MRI Brain and entire spine was obtained, however, no acute spinal cord compression was identified. Per Neurology, pt's gait dysfunction was thought to be secondary to acute exacerbation of peripheral neuropathy and would improve over time with rehabilitation. Due to ongoing decline in functional deficits, fluctuating blood pressures (ranging from 98-142/57-96), intermittent tachycardia, pt was thought to be an appropriate candidate for admission to IRU to continue medical management and provide aggressive therapies. Pt has tolerated IRU course well; INR is therapeutic; pain is better control and functional independence has greatly improved. On initial evaluation, pt required Angy for bathing and LB dressing; set-up/SBA for grooming and UB dressing; modA for toileting; Angy/CGA for transfers; modA 70 feet with RW. At the time of discharge, pt has progressed to Independent to Gregorio for ADLs, except supervision for shower transfers; Gregorio for transfers; ambulating 340 feet x2 with FWW and right [place] knee cage to prevent hyperextension with supervision/SBA. Family training was completed with prior to discharge home. Pt was seen in F/U by vascular surgery on day of discharge; will need to follow-up outpt. >30 mins spent on discharge process, medication reconciliation; pt to F/U with PCP for INR check on Friday, resumed home dose of 10mg Disposition: DISCHARGED TO HOME OR SELFCARE - Discharge Diagnoses (1) Atherosclerosis of [place] arteries of extremity with rest pain Status: Acute Qualifiers: Peripheral atherosclerosis location: lower extremity Laterality: left Qualified Code(s): I70.222 - Atherosclerosis of [place] arteries of extremities with rest pain, left leg (2) Peripheral neuropathy Status: Acute Qualifiers: Peripheral neuropathy type: polyneuropathy associated with underlying disease Qualified Code(s): G63 - Polyneuropathy in diseases classified elsewhere (3) Ataxia Status: Acute (4) HTN (hypertension) Status: Chronic Qualifiers: Hypertension type: essential hypertension Qualified Code(s): I10 - Essential (primary) hypertension (5) Diabetes Status: Chronic Qualifiers: Diabetes mellitus type: type 2 Diabetes mellitus complication status: with hyperglycemia Diabetes mellitus complication detail: D Diabetic retinopathy severity: D Proliferative retinopathy type: P Diabetes mellitus macular edema: D Diabetes mellitus extermination supervisor insulin use: with extermination supervisor use Laterality: L Chronic kidney disease stage: C Qualified Code(s): E11.65 - Type 2 diabetes mellitus with hyperglycemia; Z79.4 - intermediate card tender (current) use of insulin Core Measure Documentation - Palliative Care Palliative Care/ Comfort Measures: Not Applicable - Core Measures Any of the following diagnoses?: none Exam - Constitutional Vitals: Temp Pulse Resp BP Pulse Ox 98.3 F 86 20 125/87 96 05/10/16 08:30 05/10/16 10:14 05/10/16 10:00 05/10/16 10:14 05/10/16 10:00 General appearance: Present: no acute distress, obese - EENT Eyes: Present: EOM intact ENT: hearing intact - Neck Neck: Present: supple, normal ROM - Respiratory Respiratory effort: normal - Extremities Extremities: No edema Extremity abnormal: tenderness (left calf; stable) - Abdominal General gastrointestinal: Present: soft, non-tender, non-distended - Integumentary Integumentary: Present: clear - Musculoskeletal Musculoskeletal: strength equal bilaterally - Psychiatric Psychiatric: appropriate mood/affect, intact judgment & insight, memory intact, cooperative - Neurologic Neurologic: CNII-XII intact, moves all extremities Plan Activity: no driving until cleared by PCP, fall precautions Weight Bearing Status: Full Weight Bearing Diet: low salt, diabetic Special Instructions: record daily BP diary, record blood sugar diary, physical therapy ([facility] outpt) Durable Medical Equipment Needed Upon Discharge: Walker-Rolling, Wheelchair, Bedside Commode, other ([facility]) Follow up with: YAMINI HURLEY MD [Primary Care Provider] - 7 Days SUJATHA SORIANO MD [Staff Physician] - 7 Days CJ HAMLIN MD [Staff Physician] - 7 Days Prescriptions: ALPRAZolam [Xanax TAB] 0.25 mg PO TID PRN #30 tablet PRN Reason: Anxiety AtorvaSTATin [Lipitor] 80 mg PO QDAY #30 tablet Clopidogrel Bisulfate [Plavix] 75 mg PO QDAY #30 tablet glipiZIDE XL [Glucotrol Xl] 10 mg PO QAMDIAB #30 tablet ISOSORBIDE MONOnitrate [Imdur ER] 60 mg PO QDAY #30 tablet metFORMIN [Glucophage] 1,000 mg PO BIDDIAB #120 tablet Metoprolol [Lopressor TAB] 12.5 mg PO BID #30 tablet oxyCODONE /ACETAMINOPHEN [Percocet 5/325 mg] 1 tab PO Q4H PRN #30 tablet PRN Reason: Pain, Moderate (4-6) Pentoxifylline [TRENtal] 400 mg PO TID #90 tablet Pregabalin [Lyrica] 50 mg PO TID #90 capsule Warfarin [Coumadin] 10 mg PO QPM #30 tablet
== END 2016-05-10 15:30 | disposition home or self-care (01) | DRG 301 ==
LOC: 3B 19:47
PROVIDERS: ADMIT Family Medicine; ATTEND Family Medicine
DX: I70.222 Atherosclerosis of native arteries of extremities with rest pain, left leg (principal); R26.9 Unspecified abnormalities of gait and mobility; E11.42 Type 2 diabetes mellitus with diabetic polyneuropathy; I25.10 Atherosclerotic heart disease of native coronary artery without angina pectoris; I10 Essential (primary) hypertension; E11.65 Type 2 diabetes mellitus with hyperglycemia; Z82.49 Family history of ischemic heart disease and other diseases of the circulatory system; Z83.3 Family history of diabetes mellitus; Z87.891 Personal history of nicotine dependence; Z79.4 Long term (current) use of insulin
CPT/HCPCS: 36415; 80053; 82962; 85025; 85610; A9270-GY; J1815; J1818

== ENCOUNTER 2017-12-04 08:58 | Outpatient (CLI) | payer MEDICARE ==
[2017-12-04 10:10] LABS: Blood Urea Nitrogen 16 mg/dL (9-20)
--- NOTE | 2017-12-04 18:10 | Cat Scan Report ---
FINAL REPORT EXAM: CT ANGIO ABD/FEMORAL ABD AORTA HISTORY: ATHEROSCLEROSIS OF [place] ARTERIES TECHNIQUE: Spiral CTA of abdomen and bilateral lower extremities after the uneventful administration of IV contrast. Multiplanar reformations. 3D image post-procesessing was performed on an independent work station. 150 mL Omnipaque IV. PRIORS: None. FINDINGS: CTA: Normal enhancement of the abdominal aorta, with eccentric thrombus or plaquing in the distal abdominal aorta and mild narrowing approximating 50% or less stenosis by NASCET criteria. No abnormal aneurysmal dilatation, aortic dissection or significant stenosis. Celiac axis, SMA and renal arteries demonstrate normal enhancement without significant stenosis. No apparent retroperitoneal hematoma. Bifem bypass graft grossly patent and enhancing. Right lower extremity: Common and external iliac and common femoral arteries patent and normally enhancing. Profunda femoral artery also grossly patent and enhancing. Superficial femoral, and proximal popliteal arteries not readily enhancing, which may be due in part to occlusion and/or decreased inflow. No aneurysmal dilatation. Reconstitution of right distal popliteal artery, and trifurcation vessels patent and enhancing. 3-vessel runoff to ankle, although anterior tibial artery diminutive and may be intermittently enhancing. Left lower extremity: Common and external iliac and common and superficial femoral and popliteal arteries nonenhancing, probably occluded and/or secondary to decreased inflow. Profun[place] femoral artery grossly patent and enhancing. No aneurysmal dilatation. Reconstitution of left trifurcation vessels, which are patent and enhancing. 3-vessel runoff to ankle. Abdomen: Visualized lung bases grossly unremarkable. No radiopaque gallstones. Liver shows diffusely decreased attenuation without focal abnormality. Spleen without significant abnormality. Pancreas without significant abnormality. Kidneys are without significant abnormality. Left renal cyst measures approximately 1.5 cm. Adrenal glands are without significant abnormality. Pelvis: Bowel grossly unremarkable. Appendix within normal limits. No significant free peritoneal fluid, discrete abscess or apparent adenopathy. Axial skeleton grossly unremarkable. IMPRESSION: 1. 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 Nonenhancing and probable occlusion or decreased inflow in the bilateral superficial femoral and popliteal arteries. Reconstitution and 3-vessel runoff to ankles bilaterally. 2. Bifem bypass graft grossly patent and enhancing. 3. No aortic aneurysm or apparent dissection. 4. Findings compatible with fatty infiltration in the liver.
== END 2017-12-04 08:59 | disposition home or self-care (01) ==
LOC: CT 08:58
PROVIDERS: ATTEND Surgery Vascular Surgery
DX: I70.213 Atherosclerosis of native arteries of extremities with intermittent claudication, bilateral legs (principal); K76.0 Fatty (change of) liver, not elsewhere classified; E11.9 Type 2 diabetes mellitus without complications; I10 Essential (primary) hypertension; E78.5 Hyperlipidemia, unspecified; E66.01 Morbid (severe) obesity due to excess calories
CPT/HCPCS: 36415; 75635; 82565; 84520; Q9967